=== PATIENT | female | born 1955 | race Caucasian/White ===

== ENCOUNTER 2022-06-14 06:54 | Emergency (ER) | payer OTHER, SELFPAY ==
[2022-06-14 07:08] VITALS: BP 138/90; PULSE 85; RESP 28; TEMP 36.6; O2SAT 94; BMI 37.1
[2022-06-14] MEDS: IPRAT-ALBUT 0.5-2.5 MG/3 ML NEB 1 NEB IH (07:25)
--- NOTE | 2022-06-14 07:45 | ED.GENADULT ---
HPI - General Adult General Date Seen: 06/14/22 <David Simmons MD - Last Filed: 06/14/22 08:05> Stated complaint: difficulty breathing <David Simmons MD - Last Filed: 06/14/22 08:05> Time Seen by Provider: 06/14/22 07:45 <David Simmons MD - Last Filed: 06/14/22 08:05> Source: patient <David Simmons MD - Last Filed: 06/14/22 08:05> Mode of arrival: ambulatory <David Simmons MD - Last Filed: 06/14/22 08:05> Limitations: no limitations <David Simmons MD - Last Filed: 06/14/22 08:05> History of Present Illness HPI narrative: Patient is a 67-year-old female who was in her usual state of health until three days ago when she spiked a fever to 103. She has had cough and chest congestion since that time. She was exposed to her grandchildren one week ago and some of them had upper respiratory symptoms. She has been vaccinated for flu and for COVID. She is a smoker who has a history of mild intermittent asthma. She has been using albuterol with limited benefit. No fevers now for the past day and a half. She is eating and drinking okay. She denies sore throat, nausea, vomiting. She is short of breath with activity. Her past medical history is significant for a CVA, GERD, hypertension, hyperlipidemia, psoriatic arthritis, rheumatoid arthritis, osteoarthritis. <David Simmons MD - Last Filed: 06/14/22 08:05> Related Data Home medications: Home Medications Medication Instructions Recorded Confirmed albuterol sulfate 90 mcg/actuation inhalation 06/14/22 aerosol inhaler celecoxib 100 mg capsule mg 06/14/22 fluticasone propionate 50 intranasal 06/14/22 mcg/actuation nasal spray,suspension omeprazole 40 mg capsule,delayed mg 06/14/22 release simvastatin 20 mg tablet mg 06/14/22 Previous Rx's Medication Instructions Recorded doxycycline monohydrate 100 mg 100 mg PO BID #20 caps 06/14/22 capsule prednisone 20 mg tablet 20 mg PO BID #14 tabs 06/14/22 <David Simmons MD - Last Filed: 06/14/22 08:05> Allergies/adverse reactions: Allergies Allergy/AdvReac Type Severity Reaction Status Date / Time No Known Drug Allergies Allergy Verified 06/14/22 07:07 <David Simmons MD - Last Filed: 06/14/22 08:05> Review of Systems Narrative: Patient has psoriatic arthritis, rheumatoid arthritis, osteoarthritis. Review of systems is outlined above otherwise noted to be negative. <David Simmons MD - Last Filed: 06/14/22 08:05> [facility] Medical History: Medical History (Updated 06/14/22 @ 09:29 by Rocio Antonio MD) COPD (chronic obstructive pulmonary disease) GERD (gastroesophageal reflux disease) History of CVA (cerebrovascular accident) Hyperlipidemia Hypertension Osteoarthritis Psoriatic arthritis Rheumatoid arthritis Tobacco abuse <David Simmons MD - Last Filed: 06/14/22 08:05> Exam Narrative: Exam Narrative: Vitals noted. Oxygen saturations 94%. No respiratory distress. HEENT: Conjunctiva clear. Tympanic membranes are pearly white bilaterally. Posterior pharynx is clear without erythema or exudate. Neck is supple without adenopathy, thyromegaly. Lungs: She has inspiratory and expiratory wheezes and a prolonged expiratory phase. No localizing rales or rhonchi. Heart: Regular rate and rhythm without murmur. Abdomen: Soft and nontender. No guarding, rigidity, rebound. Bowel sounds are normal. No palpable masses. Extremities: No cyanosis or edema. Good distal pulses. Skin: No abnormalities noted of the exposed skin. Neurologic: Awake, alert, fully oriented. Neurologic exam is nonfocal. <David Simmons MD - Last Filed: 06/14/22 08:05> Const: Vital Signs, click to edit/add: Vital Signs - 24 hr 06/14/22 07:08 Temperature 97.9 F Pulse Rate [Right Pulse Oximeter] 85 Respiratory Rate 28 H Blood Pressure [Ri ght Upper Arm] 138/90 H Pulse Oximetry 94 Oxygen Delivery Me thod Room Air <David Simmons MD - Last Filed: 06/14/22 08:05> Vital Signs, click to edit/add: Vital Signs - 24 hr 06/14/22 07:08 Temperature 97.9 F Pulse Rate [Right Pulse Oximeter] 85 Respiratory Rate 28 H Blood Pressure [Ri ght Upper Arm] 138/90 H Pulse Oximetry 94 Oxygen Delivery Me thod Room Air <Rocio Antonio MD - Last Filed: 06/14/22 09:30> Documenting provider has reviewed patient's vital signs: yes <David Simmons MD - Last Filed: 06/14/22 08:05> Course Course Hospital Course: Patient was seen and examined. Chest x-ray and a triple swab are ordered. She is given a DuoNeb with partial clearing of her wheezing. <David Simmons MD - Last Filed: 06/14/22 08:05> Reevaluation(s) Reevaluation #1: Reviewed patient's chest x-ray report with her. She states the pulmonary nodule is old and has been there. I have given her the copy of the chest x-ray report to take to her primary care provider to ensure that it does not need further CT imaging. She does have pneumonia. Will initiate oral antibiotics and prednisone. She is highly advised to quit smoking. She states she has not done so for 4 days, we discussed this might be opportunity to try to quit. She has inhalers at home. Do not see that she needs hospitalization at this point but we reviewed signs and symptoms for return. <Rocio Antonio MD - Last Filed: 06/14/22 09:30> Time: 09:27 <Rocio Antonio MD - Last Filed: 06/14/22 09:30> Vital Signs Vital signs: Initial Vital Signs Temperature 97.9 F 06/14/22 07:08 Temperature Source Temporal Artery Scan 06/14/22 07:08 Pulse Rate 85 06/14/22 07:08 Respiratory Rate 28 H 06/14/22 07:08 Blood Pressure 138/90 H 06/14/22 07:08 Blood Pressure Mean 106 06/14/22 07:08 Blood Pressure Position Sitting 06/14/22 07:08 Pulse Oximetry 94 06/14/22 07:08 Oxygen Delivery Method 06/14/22 07:08 Vital Signs Temperature 97.9 F 06/14/22 07:08 Pulse Rate 85 06/14/22 07:08 Respiratory Rate 28 H 06/14/22 07:08 Blood Pressure 138/90 H 06/14/22 07:08 Pulse Oximetry 94 06/14/22 07:08 Oxygen Delivery Method 06/14/22 07:08 Temperature 97.9 F 06/14/22 07:08 Pulse Rate 85 06/14/22 07:08 Respiratory Rate 28 H 06/14/22 07:08 Blood Pressure 138/90 H 06/14/22 07:08 Pulse Oximetry 94 06/14/22 07:08 Oxygen Delivery Method 06/14/22 07:08 <David Simmons MD - Last Filed: 06/14/22 08:05> Initial Vital Signs Temperature 97.9 F 06/14/22 07:08 Temperature Source Temporal Artery Scan 06/14/22 07:08 Pulse Rate 85 06/14/22 07:08 Respiratory Rate 28 H 06/14/22 07:08 Blood Pressure 138/90 H 06/14/22 07:08 Blood Pressure Mean 106 06/14/22 07:08 Blood Pressure Position Sitting 06/14/22 07:08 Pulse Oximetry 94 06/14/22 07:08 Oxygen Delivery Method 06/14/22 07:08 Vital Signs Temperature 97.9 F 06/14/22 07:08 Pulse Rate 85 06/14/22 07:08 Respiratory Rate 28 H 06/14/22 07:08 Blood Pressure 138/90 H 06/14/22 07:08 Pulse Oximetry 94 06/14/22 07:08 Oxygen Delivery Method 06/14/22 07:08 Temperature 97.9 F 06/14/22 07:08 Pulse Rate 85 06/14/22 07:08 Respiratory Rate 28 H 06/14/22 07:08 Blood Pressure 138/90 H 06/14/22 07:08 Pulse Oximetry 94 06/14/22 07:08 Oxygen Delivery Method 06/14/22 07:08 <Rocio Antonio MD - Last Filed: 06/14/22 09:30> Medical Decision Making Lab Data Lab results reviewed: Yes I reviewed the patient's lab results <Rocio Antonio MD - Last Filed: 06/14/22 09:30> Labs: Lab Results 06/14/22 Range/Units 07:17 SARS-CoV-2 (PCR) Negative SARS-CoV-2 (Negative) Influenza Type A (PCR) Negative PCR FLU A (Negative) Influenza Type B (PCR) Negative PCR FLU B (Negative) RSV (PCR) Negative PCR RSV (Negative) <David Simmons MD - Last Filed: 06/14/22 08:05> Lab Results 06/14/22 Range/Units 07:17 SARS-CoV-2 (PCR) Negative SARS-CoV-2 (Negative) Influenza Type A (PCR) Negative PCR FLU A (Negative) Influenza Type B (PCR) Negative PCR FLU B (Negative) RSV (PCR) Negative PCR RSV (Negative) <Rocio Antonio MD - Last Filed: 06/14/22 09:30> Imaging Data Chest x-ray: Attestation: I have reviewed the pertinent imaging results. <Rocio Antonio MD - Last Filed: 06/14/22 09:30> My impression: Can not see a pulmonary nodule on the right side. Await Radiology over-read on this chest x-ray. <Rocio Antonio MD - Last Filed: 06/14/22 09:30> Radiologist's impression: Patient: JESSICA SWEENEY Facility:?[facility] Patient ID:?[id number] Site Patient ID:?[id number]. Site :?1955 Study:?XRay Chest -06/14/2022 8:03:20 AM Ordering Physician:Evans Hernandez Final Report: INDICATION: sob TECHNIQUE: Chest 2 views. COMPARISON: None. FINDINGS: Cardiovascular and mediastinum: Heart size and vasculature are normal in caliber and appearance. Lungs and pleural spaces: Right mid-lower lung field pulmonary nodule measuring 1.3 cm. Subtle patchy airspace opacity at the right lung base concerning for pneumonia. No effusion or pneumothorax. Bones and soft tissues: No significant findings. IMPRESSION: Right mid-lower lung field pulmonary nodule measuring 1.[address] chest further evaluate. Subtle patchy airspace opacity at the right lung base concerning for pneumonia. Dictated by Ryland Rey MD @ 06/14/2022 9:06:55 AM (Electronic Signature) <Rocio Antonio MD - Last Filed: 06/14/22 09:30> Critical Care Time Critical Care Time Critical Care Time: No <Rocio Antonio MD - Last Filed: 06/14/22 09:30> Discharge Plan Discharge Clinical Impression: Community acquired pneumonia, COPD (chronic obstructive pulmonary disease) <David Simmons MD - Last Filed: 06/14/22 08:05> Condition: Stable <David Simmons MD - Last Filed: 06/14/22 08:05> Instructions: Community Acquired Pneumonia (ED), Chronic Lung Disease and Infection Prevention (ED) <David Simmons MD - Last Filed: 06/14/22 08:05> Additional Instructions: Start oral antibiotic and prednisone as prescribed. Use your inhalers as prescribed at home. Recommend follow-up with your primary care provider within the next week for recheck. Otherwise, if you are worsening at any point, having increased difficulty breathing or shortness of breath, developing worsening respiratory symptoms or worsening fever profile, do need to seek re-evaluation in the interim. Continue to work on smoking cessation. <David Simmons MD - Last Filed: 06/14/22 08:05> Activity Level: Activity as Tolerated <David Simmons MD - Last Filed: 06/14/22 08:05> Activity as Tolerated <Rocio Antonio MD - Last Filed: 06/14/22 09:30> Discharge Diet: Regular <David Simmons MD - Last Filed: 06/14/22 08:05> Regular <Rocio Antonio MD - Last Filed: 06/14/22 09:30> Prescriptions: New doxycycline monohydrate 100 mg capsule 100 mg PO BID Qty: 20 0RF prednisone 20 mg tablet 20 mg PO BID Qty: 14 0RF No Action omeprazole 40 mg capsule,delayed release(DR/EC) simvastatin 20 mg tablet albuterol sulfate 90 mcg/actuation HFA aerosol inhaler INHALATION celecoxib 100 mg capsule fluticasone propionate 50 mcg/actuation spray,suspension INTRANASAL <David Simmons MD - Last Filed: 06/14/22 08:05> Stand Alone Forms: [facility] <David Simmons MD - Last Filed: 06/14/22 08:05>
--- NOTE | 2022-06-14 07:46 | CRLHL7_ITS ---
For Patients: As a result of the Century Cures Act, medical imaging exams and procedure reports are released immediately into your electronic medical record. You may view this report before your referring provider. If you have questions, please contact your health care provider. INDICATION: sob TECHNIQUE: Chest 2 views. COMPARISON: None. FINDINGS: Cardiovascular and mediastinum: Heart size and vasculature are normal in caliber and appearance. Lungs and pleural spaces: Right mid-lower lung field pulmonary nodule measuring 1.3 cm. Subtle patchy airspace opacity at the right lung base concerning for pneumonia. No effusion or pneumothorax. Bones and soft tissues: No significant findings. IMPRESSION: Right mid-lower lung field pulmonary nodule measuring 1.[address] chest further evaluate. Subtle patchy airspace opacity at the right lung base concerning for pneumonia. Dictated by Ryland Rey MD @ 06/14/2022 9:06:55 AM (Electronically Signed)
[2022-06-14 08:07] LABS: PCR FLU A Negative PCR FLU A (Negative); PCR FLU B Negative PCR FLU B (Negative); PCR RSV Negative PCR RSV (Negative)
--- OUTSIDE RECORDS SUMMARY | 2022-06-14 08:08 | XMS_ITS | Encounter Summary ---
:1955 [facility] Address [address], [place] [address] Care Team Providers Name Role Phone Marta Hicks MD Primary Care Provider Unavailable Reason for Visit Reason Onset Date Comments Refill 06/27/2020 Encounter Details Date Type Department Care Team Description 06/27/2020 Refill [facility] Phil Spangler MD Refill [id number] [employer] [address] [place] [address] [place] [address] (Wo rk) Social History Tobacco Use Types Packs/Day Years Used Date Smoking Tobacco: Every Day Cigarettes 0.5 Smokeless Tobacco: Never Alcohol Use Standard Drinks/Week Comments Yes 0 (1 standard drink = 0.6 oz pure alcoho l) Sex Assigned at Date Recorded Not on file documented as of this encounter Nursing Notes Beti Shah RN - 06/28/2020 7:44 AM CST LV: 11/08/2019 FV: none Cbc and creatinine obtained on 10/15/2019 results within normal limits. (See Care everywhere [facility]) Renewed medication per medication refill protocol. Requested Prescriptions Signed Prescriptions Disp Refills ??? celecoxib (CELEBREX) 100 MG capsule 180 Capsule 1 Sig: Take 1 Capsule by mouth two times a day. Blood tests needed for any further refills Authorizing Provider: PHIL TATE Ordering User: BETI SHAH MACHINE TENDER documented in this encounter Plan of Treatment Upcoming Encounters Date Type Specialty Care Team Description 04/23/2023 Appointment Rheumatology Phil Tate M D [address] [address] (Wo rk) documented as of this encounter Visit Diagnoses Not on filedocumented in this encounter Care Teams Research Worker Kitchen Relationship Specialty Start Date End Date Marta Hicks MD PCP - General Family Practice 01/03/17 documented as of this encounter
--- OUTSIDE RECORDS SUMMARY | 2022-06-14 08:08 | XMS_ITS | Encounter Summary ---
:1955 [facility] Address [address] [address] Care Team Providers Name Role Phone Marta Hicks MD Primary Care Provider Unavailable Reason for Visit Reason Comments ERRONEOUS ENTRY Encounter Details Date Type Department Care Team Description 07/22/2019 Telephone [facility] [address] Herrmann PA-C ERRONEOUS ENTRY Rheumatology [address] [facility] [address] [place] [address] [place] [address] [phone] Social History Tobacco Use Types Packs/Day Years Used Date Smoking Tobacco: Every Day Cigarettes 0.5 Smokeless Tobacco: Never Alcohol Use Standard Drinks/Week Comments Not Asked 0 (1 standard drink = 0.6 oz pure alcoho l) Sex Assigned at Date Recorded Not on file documented as of this encounter Nursing Notes Carol Herrmann PA-C - 09/24/2019 10:05 AM CST A user error has taken place: encounter opened in error, closed for administrative reasons. WORKER documented in this encounter Plan of Treatment Upcoming Encounters Date Type Specialty Care Team Description 04/23/2023 Appointment Rheumatology Arun Tate M D [address] [facility] [address] [phone] (Wo rk) documented as of this encounter Results HBAG - Hepatitis B Surf Ag (07/22/2019 12:28 PM SORT WORKER) Patholo gist Method Time Signature Hepatitis B Negative Negative 07/22/[facility] (Non (Non 6:59 PM SORT WORKER CENTRAL [facility] Antigen Reactive) Reactive) Specimen Anatomical Collection Method / Collection Time Recei carolina Time (Source) Location / Volume Laterality Blood Venipuncture / 07/22/2019 12:28 9 Unknown PM SORT WORKER 12:28 PM SORT WORKER Carol Herrmann PA-C LAB_[address] [facility] Phon e Number [facility] [address] [address] HBCB - Hepatitis B Core Antibody Total (07/22/2019 12:28 PM SORT WORKER) [facility] Method Time Signature Hepatitis B Negative Negative 07/22/2019 [facility] Core (Non (Non 6:59 PM SORT WORKER CENTRAL LAB Antibody Reactive) Reactive) Specimen Anatomical Collection Method / Collection Time Recei carolina Time (Source) Location / Volume Laterality Blood Venipuncture / 07/22/2019 12:28 9 Unknown PM SORT WORKER 12:28 PM SORT WORKER Carol Herrmann PA-C LAB_[address] [facility] Phon e Number [facility] [address] [address] documented in this encounter Visit Diagnoses Diagnosis High risk medication use - Primary Encounter for long-term (current) use of other medications documented in this encounter Care Teams Mutual Funds Agent Relationship Specialty Start Date End Date Marta Hicks MD PCP - General Family Practice 01/03/17 documented as of this encounter
--- OUTSIDE RECORDS SUMMARY | 2022-06-14 08:08 | XMS_ITS | Encounter Summary ---
:1955 Author Organization [facility] Address [address] [address] Care Team Providers Name Role Phone Marta Hicks MD Primary Care Provider Unavailable Encounter Details Date Type Department Care Team Description 07/15/2019 Notes/Orders [place] [facility] Carol Lackey, PA-C [address] [place] [address] [place] [address] [phone] (Wo parth) Social History Tobacco Use Types Packs/Day Years Used Date Smoking Tobacco: Every Day Cigarettes 0.5 Smokeless Tobacco: Never Alcohol Use Standard Drinks/Week Comments Not Asked 0 (1 standard drink = 0.6 oz pure alcoho l) Sex Assigned at Date Recorded Not on file documented as of this encounter Plan of Treatment Upcoming Encounters Date Type Specialty Care Team Description 04/23/2023 Appointment Rheumatology Arun Tate M D [address] [facility] N [phone] (Wo rk) documented as of this encounter Visit Diagnoses Not on filedocumented in this encounter Care Teams Pinsetter Mechanic Helper Relationship Specialty Start Date End Date Marta Hicks MD PCP - General Family Practice 01/03/17 documented as of this encounter
--- OUTSIDE RECORDS SUMMARY | 2022-06-14 08:08 | XMS_ITS | Encounter Summary ---
:1955 Author Organization [facility] Address [address], [place] [address] Care Team Providers Name Role Phone Marta Hicks MD Primary Care Provider Unavailable Encounter Details Date Type Department Care Team Description 11/02/2020 Immunization [facility] Vaccine Encou nter for Program administration of vaccine [address] (Primary Dx) [place], [place] [id number] Social History Tobacco Use Types Packs/Day Years [...] 04/23/2023 Appointment Rheumatology Arun Tate M D [address] [address] (Wo rk) documented as of this encounter Visit Diagnoses Diagnosis Encounter for administration of vaccine - Primary documented in this encounter Care Teams Cartridge Gauger Relationship Specialty Start Date End Date Marta Hicks MD PCP - General Family Practice 01/03/17 documented as of this encounter
--- OUTSIDE RECORDS SUMMARY | 2022-06-14 08:08 | XMS_ITS | Encounter Summary ---
:1955 Author Organization [facility] Address [address] [place] [address] Care Team Providers Name Role Phone Marta Hicks MD Primary Care Provider Unavailable Encounter Details Date Type Department Care Team Description 07/22/2019 Lab Visit [facility] High risk medication use [address] [place] [address] Social History Tobacco Use Types Packs/Day Years [...] 04/23/2023 Appointment Rheumatology Arun Tate M D [address] [facility] [place] [address] (Wo rk) documented as of this encounter Procedures Procedure Name Priority Date/Time Associated Diagnosis Comme nts HBSAG (HEPATITIS B Routine 07/22/2019 12:28 PM High risk medic ation Results for this SURFACE AG) DOOR OPERATOR use procedure are i n the results section. HEPATITIS B CORE,AB Routine 07/22/2019 12:28 PM High risk medi cation Results for this DOOR OPERATOR use procedure are i n the results section. documented in this encounter Results HBAG - Hepatitis B Surf Ag (07/22/2019 12:28 PM DOOR OPERATOR) [facility] Method Time Signature Hepatitis B Negative Negative 07/22/2019 [facility] Surface (Non (Non 6:59 PM DOOR OPERATOR CENTRAL LAB Antigen Reactive) Reactive) Specimen Anatomical Collection Method / Collection Time Recei carolina Time (Source) Location / Volume Laterality Blood Venipuncture / 07/22/2019 12:28 9 Unknown PM DOOR OPERATOR 12:28 PM DOOR OPERATOR Carol Herrmann PA-C LAB_1 Performing Organization Address [facility] Phon e [facility] CENTRAL LAB [address] [address] HBCB - Hepatitis B Core Antibody Total (07/22/2019 12:28 PM DOOR OPERATOR) [facility] Method Time Signature Hepatitis B Negative Negative 07/22/2019 [employer] Core (Non (Non 6:59 PM DOOR OPERATOR CENTRAL LAB Antibody Reactive) Reactive) Specimen Anatomical Collection Method / Collection Time Recei carolina Time (Source) Location / Volume Laterality Blood Venipuncture / 07/22/2019 12:28 9 Unknown PM DOOR OPERATOR 12:28 PM DOOR OPERATOR Carol Herrmann PA-C LAB_1 Performing Organization Address [facility] Phon e Number [facility]AL [facility] [address] [address] documented in this encounter Visit Diagnoses Diagnosis High risk medication use Encounter for long-term (current) use of other medications documented in this encounter Care Teams Greens Planter Relationship Specialty Start Date End Date Marta Hicks MD PCP - General Family Practice 01/03/17 documented as of this encounter
--- OUTSIDE RECORDS SUMMARY | 2022-06-14 08:08 | XMS_ITS | Encounter Summary ---
:1955 [facility] Address [address], [place] [address] Care Team Providers Name Role Phone Marta Hicks MD Primary Care Provider Unavailable Reason for Visit Reason Comments Refill Encounter Details Date Type Department Care Team Description 01/27/2020 Refill [place] [facility] ogArun Cho MD Refill [address] [place] [address] [place] [address] [phone] (Wo parth) Social History Tobacco Use Types [...] Appointment Rheumatology Arun Tate M D [address] [facility] [address] [address] (Wo parth) documented as of this encounter Visit Diagnoses Not on filedocumented in this encounter Care Teams Online Editor Relationship Specialty Start Date End Date Marta Hicks MD PCP - General Family Practice 01/03/17 documented as of this encounter
--- OUTSIDE RECORDS SUMMARY | 2022-06-14 08:08 | XMS_ITS | Encounter Summary ---
:1955 Author [facility] Address [address] [address] Care Team Providers Name Role Phone Marta Hicks MD Primary Care Provider Unavailable Reason for Visit Reason Comments Medication Questions Encounter Details Date Type Department Care Team Description 08/05/2019 Telephone [facility] 3800 Arun Tate MD Medication Questions Rheumatology [address] [place] [facility] [place] [address] [id number] [phone] Social History Tobacco Use Types Packs/Day Years Used Date Smoking Tobacco: Every Day Cigarettes 0.5 Smokeless Tobacco: Never Alcohol Use Standard Drinks/Week Comments Not Asked 0 (1 standard drink = 0.6 oz pure alcoho l) Sex Assigned at Date Recorded Not on file documented as of this encounter Nursing Notes Fabi Feldman LPN - 08/05/2019 11:59 AM CST Pt called asking that we contact her pharmacy concerning her mtx refill order sent over on 07/23/19.The pharmacy had a warning about MTX and Celebrex not safe to take together. Tried to call pharmacy, spent 8 min on the phone. Faxed [facility] in [place] that the Warning override is in her chart stating the benefit outweighs risk. [phone] Pt karisoll call back if she cannot get her Rx filled today. UTER TECHNOLOGY TEACHER documented in this encounter Plan of Treatment Upcoming Encounters Date Type Specialty Care Team Description 04/23/2023 Appointment Rheumatology Arun Tate M D [address] [facility] [address] [address] (Wo rk) documented as of this encounter Visit Diagnoses Not on filedocumented in this encounter Care Teams Web Marketing Strategist Relationship Specialty Start Date End Date Marta Hicks MD PCP - General Family Practice 01/03/17 documented as of this encounter
--- OUTSIDE RECORDS SUMMARY | 2022-06-14 08:08 | XMS_ITS | Clinical Summary ---
:1955 Author Organization [facility] Address [address] [address] Care Team Providers Name Role Phone Marta Hicks MD Primary Care Provider Unavailable Source Comments You are receiving this document as you are listed as the primary care provider,follow-up provider, or the patient has been referred to you for consultation.This is in compliance with the Medicare and Medicaid EHR Incentive Program,which states Providers who transition their patient to another setting of careor provider of care or refers their patient to another provider of care shouldprovide summarycare record for each transition of care or referral. Tourjive Allergies Active Allergy Reactions Severity Noted Date Comments Methotrexate 11/08/2019 Increased migra wil Other Cough, Other, see 01/08/2011 Trees, dus t, horses, mold comments and grass: snee zing Medications Medication Sig Dispensed Refills Start Date End Date Status azelastine (ASTELIN) 2 sprays in each 0 05/13/2014 Active 0.1 % nasal solution nostril twice a day as needed fluticasone (FLONASE) 2 Sprays by 0 08/15/2016 Active 50 MCG/ACT nasal Nasal route. solution triamcinolone Apply topically. 0 08/15/2016 Active acetonide (KENALOG) 0.1 % cream Glucosamine-Chondroiti Daily 0 02/19/2017 Active n 750-600 MG acetaminophen (TYLENOL Take 2 Tablets 0 04/29/2022 Active ARTHRITIS) 650 MG (1,300 mg) by controlled release mouth two times tablet a day. diclofenac (VOLTAREN) Apply 2 g to 100 g 3 04/29/2022 Active 1 % gel skin 4 times daily as needed for Other (hand, knee, other joint pain). metoprolol succinate Take 25 mg by 0 03/25/2022 Active (TOPROL XL) 25 MG 24 mouth daily. hour release tablet simvastatin (ZOCOR) 20 Take 20 mg by 0 03/25/2022 Active MG tablet mouth. omeprazole (PRILOSEC) Take 1 Capsule 0 04/29/2022 Active 40 MG capsule (40 mg) by mouth two times a day. celecoxib (CELEBREX) Take 1 Capsule 180 Capsule 3 04/29/2022 Active 100 MG capsule (100 mg) by mouth two times a day. 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 12/15/2020 Migraine with aura and without status migrainosus, not intractable 11/08/2019 watermaster current use of non-steroidal anti-inflammato jm (NSAID) 03/26/2017 HLA B27 (HLA B27 positive) 03/26/2017 Psoriasis 03/26/2017 Primary osteoarthritis of right hip 02/19/2017 Primary osteoarthritis of both hands 02/19/2017 Multiple joint pain 02/19/2017 Primary osteoarthritis of right knee 02/19/2017 Total knee replacement status 02/19/2017 Gastroesophageal reflux disease 02/19/2017 Encounters Date Type Specialty Care Team Description 05/27/2022 Telephone Rheumatology Arun Tate MD Prior Auth orization For Medication (Kayla ecoxib 100mg cap PA renewal ) 04/29/2022 Office Visit Rheumatology Arun Tate MD Polyarticu lar osteoarthritis (Primary Dx); Erosive osteoar thritis of both hands; Pain in both juarez nds; custodial curre nt use of non-steroidal anti-inflammatories (NSAID) 04/24/2022 Lab Visit Laboratory watermaster curre nt use of non-steroidal anti-inflammato jm (NSAID) 04/16/2022 Refill Rheumatology Arun Tate MD Refill from Last 3 Months Immunizations Name Administration Dates Next Due Influenza IIV4 (Quadrivalent) 0.5mL 06/22/2019, 06/05/2017, 07/25/2016, (53765) 04/15/2014 Pfizer (Comirnaty) COVID-19, 12+ Yrs 11/23/2020, 11/02/2020 [facility] Social History Tobacco Use Types Packs/Day Years Used Date Smoking Tobacco: Every Day Cigarettes 0.5 Smokeless Tobacco: Never Alcohol Use Standard Drinks/Week Comments Yes 0 (1 standard drink = 0.6 oz pure alcoho l) Sex Assigned at Date Recorded Not on file Last Filed Vital Signs Vital Sign Reading Time Taken Comments Blood Pressure 152/75 09/03/2019 3:08 PM REINFORCED CONCRETE INSPECTOR Pulse 86 09/03/2019 3:08 PM REINFORCED CONCRETE INSPECTOR Temperature - - Respiratory Rate - - Oxygen Saturation - - Inhaled Oxygen Concentration - - Weight 100.7 kg (222 lb) 09/03/2019 3:08 PM REINFORCED CONCRETE INSPECTOR Height 164 cm (5' 4.57) 02/19/2017 10:16 AM CDT Body Mass Index 37.44 02/19/2017 10:16 AM CDT Plan of Treatment Upcoming Encounters Date Type Specialty Care Team Description 04/23/2023 Appointment Rheumatology Arun Tate M D [address] [place] [id number] (Wo rk) Health Maintenance Due Date Last Done Comments Cervical Cancer Screening 1955 Due Colon Cancer Screening Plan 1955 Due Hep C Screening (Preventive 1955 Services) Mammogram 1955 Pneumococcal 65+ Yrs (1 - 1963 PCV) Adult Preventive Visit 1975 Cholesterol 2002 Zoster/Shingles (1 of 2) 2007 COVID-19 Vaccine (3 - 01/18/2021 11/23/2020, 11/02/2020 Booster for Pfizer series) DTaP/Tdap/Td (2 - Tdap) 04/23/2021 04/23/2011 Influenza (#1) 2022 04/13/2021, 05/04/2020, 06/22/2019, Additional history exists Dexa 2022 HepA Aged Out 06/07/2004, 10/29/2001 No longer eligible based on patient 's age to complete this topic HepB Aged Out No longer eligib le based on patient 's age to complete this topic Hib Aged Out No longer eligib le based on patient 's age to complete this topic IPV (Polio) Aged Out No longer eligib le based on patient 's age to complete this topic MCV4 Aged Out No longer eligib le based on patient 's age to complete this topic Procedures Procedure Name Priority Date/Time Associated Comments Diagnosis COMPLETE BLOOD Routine 04/24/2022 11:23 custodial current Resu lts for this COUNT-W/DIFF AM CDT use of procedure are i n non-steroidal the results anti-inflammatories section. (NSAID) CREATININE / GFR Routine 04/24/2022 11:23 watermaster current Re sults for this AM CDT use of procedure are i n non-steroidal the results anti-inflammatories section. (NSAID) CBC AND DIFFERENTIAL Routine 04/24/2022 11:23 watermaster curren t Results for this PANEL AM CDT use of procedure are i n non-steroidal the results anti-inflammatories section. (NSAID) from Last 3 Months Results Creatinine / GFR (04/24/2022 11:23 AM CDT) Patholo gist Method Time Signature Creatinine 0.84 0.55 - 04/24/2022 [employer] 1.02 3:11 PM CDT [facility] mg/dL GFR, Estimated >60 >60 04/24/[address] [facility] mL/min/1. 3:11 PM CDT [facility] 73m2 Specimen Anatomical Collection Method / Collection Time Recei carolina Time (Source) Location / Volume Laterality Blood Venipuncture / 04/24/2022 11:23 2 Unknown AM CDT 11:23 AM CDT Arun Tate MD LAB_1 Performing Organization Address City/State/ZIP Code Phon e Number [email or web address] [address] [phone] Complete Blood Count-W/Diff (04/24/2022 11:23 AM CDT) P athologist Signature WBC 7.7 3.5 - 10.5 04/24/2022 [place] x10(9)/L 11:25 AM CDT LABORATORY ([place]) RBC 4.66 3.90 - 04/24/2022 [place] 5.03 11:25 AM CDT LAB[facility]ORY ([facility]) x10(12)/L Hemoglobin 14.6 12.0 - 04/24/2022 [place] 15.5 g/dL 11:25 AM CDT LAB[facility]ORY ([facility]) HCT 43.4 34.9 - 04/24/2022 [place] 44.5 % 11:25 AM CDT [facility] ([facility]) MCV 93.1 80.0 - 04/24/2022 [place] 100.0 fL 11:25 AM CDT [facility] ([facility]) MCH 31.3 27.6 - 04/24/2022 [place] 33.3 pg 11:25 AM CDT [facility] ([facility]) MCHC 33.6 31.5 - 04/24/2022 [place] 35.2 g/dL 11:25 AM CDT [facility] ([facility]) RDW 12.3 11.9 - 04/24/2022 [place] 15.5 % 11:25 AM CDT [facility] ([facility]) Platelets 210 150 - 450 04/24/2022 [place] x10(9)/L 11:25 AM CDT LAB[facility] ([facility]) Neutrophil 3.1 1.7 - 7.0 04/24/2022 [place] Absolute 10(9)/L 11:25 AM CDT LAB[facility] ([facility]) Lymphocyte 3.6 1.0 - 4.8 04/24/2022 [place] Absolute 10(9)/L 11:25 AM CDT LAB[facility] ([facility]) Monocytes 0.8 0.2 - 0.9 04/24/2022 [place] Absolute 10(9)/L 11:25 AM CDT [facility] ([facility]) Eosinophil 0.2 0.0 - 0.5 04/24/2022 [place] Absolute 10(9)/L 11:25 AM CDT [facility] ([facility]) Basophil 0.1 0.0 - 0.3 04/24/2022 [place] Absolute 10(9)/L 11:25 AM CDT LAB[facility] ([facility]) Immature Gran % 0.0 0.0 - 0.5 04/24/2022 [place] % 11:25 AM CDT LAB[facility] ([facility]) Specimen Anatomical Collection Method / Collection Time Recei carolina Time (Source) Location / Volume Laterality Blood Venipuncture / 04/24/2022 11:23 2 Unknown AM CDT 11:23 AM CDT Arun Tate MD LAB_1 Performing Organization Address City/State/ZIP Code Phon e Number [place] [facility] ([facility]) [address] [place] [address] from Last 3 Months Insurance Payer Benefit Plan / Subscriber ID Effective Phone Address T ype Group Dates [id number]Pre [phone] sent [phone] [place] [address] Care Teams Infrastructure Project Manager Relationship Specialty Start Date End Date Marta Hicks MD PCP - General Family Practice 01/03/17
--- OUTSIDE RECORDS SUMMARY | 2022-06-14 08:08 | XMS_ITS | Encounter Summary ---
:1955 [facility] Address [address], [place] [address] Care Team Providers Name Role Phone Marta Hicks MD Primary Care Provider Unavailable Reason for Visit Reason Comments Prior Authorization For Medication Celecoxib 100mg cap PA renewal Encounter Details Date Type Department Care Team Description 05/27/2022 Telephone [facility] [address] Arun Tate MD Prior Authorization For Rheumatology [address] Medication (Celecoxib [address] 100mg cap PA renewal ) [place] [address] [phone] Social History Tobacco Use Types Packs/Day Years Used Date Smoking Tobacco: Every Day Cigarettes 0.5 Smokeless Tobacco: Never Alcohol Use Standard Drinks/Week Comments Yes 0 (1 standard drink = 0.6 oz pure alcoho l) Sex Assigned at Date Recorded Not on file documented as of this encounter Nursing Notes Lizbeth Snider - 05/27/2022 12:03 PM CDT Images from the original note were not included. Celecoxib PA renewal approved. No refill needed. Last refill 04/29/22 for 1 year. documented in this encounter Plan of Treatment Upcoming Encounters Date Type Specialty Care Team Description 04/23/2023 Appointment Rheumatology Arun Tate M D [address] [facility] [place] [id number] (Wo rk) documented as of this encounter Visit Diagnoses Not on filedocumented in this encounter Care Teams Bag Shop Worker Relationship Specialty Start Date End Date Marta Hicks MD PCP - General Family Practice 01/03/17 documented as of this encounter
--- OUTSIDE RECORDS SUMMARY | 2022-06-14 08:08 | XMS_ITS | Encounter Summary ---
:1955 Author [facility] Address [address], [place] [address] Care Team Providers Name Role Phone Marta Hicks MD Primary Care Provider Unavailable Reason for Visit Reason Onset Date Comments Refill 01/04/2021 Encounter Details Date Type Department Care Team Description 01/04/2021 Refill [facility] [address] Syl[address] Herrmann PA-C Refill Rheumatology [address] [place] [address] [place], [place] [id number] [phone] Social History Tobacco Use Types Packs/Day Years Used Date Smoking Tobacco: Every Day Cigarettes 0.5 Smokeless Tobacco: Never Alcohol Use Standard Drinks/Week Comments Yes 0 (1 standard drink = 0.6 oz pure alcoho l) Sex Assigned at Date Recorded Not on file documented as of this encounter Nursing Notes Fabi Feldman LPN - 01/04/2021 3:42 PM CDT Pt would like another script sent to [facility]. Order teed up. Please check, sign and send if appropriate. Carol Herrmann PA-C - 01/04/2021 3:32 PM CDT Labs are now updated, Celebrex refilled. Please let patient know. Please clarify with the patient if she is also wanting me to send a longer term prescription to [facility]? If not, can close encounter. Thank you. Tatiana Brennan LPN - 01/04/2021 2:40 PM CDT Patient thought you were going to refill her celebrex last month. She uses [facility] but wants it to go to [facility] for this refill because she is out. documented in this encounter Plan of Treatment Upcoming Encounters Date Type Specialty Care Team Description 04/23/2023 Appointment Rheumatology Arun Tate M D [address] [phone] (Wo rk) documented as of this encounter Visit Diagnoses Not on filedocumented in this encounter Care Teams Legal Entity Controller Relationship Specialty Start Date End Date Marta Hicks MD PCP - General Family Practice 01/03/17 documented as of this encounter
--- OUTSIDE RECORDS SUMMARY | 2022-06-14 08:08 | XMS_ITS | Encounter Summary ---
:1955 Author Organization [employer] Address [address], [place] [address] Care Team Providers Name Role Phone Marta Hicks MD Primary Care Provider Unavailable Reason for Visit Reason Comments Follow-up Encounter Details Date Type Department Care Team Description 07/14/2019 Office Visit Carol Mays, Bilateral hand pain (Primary Dx); Rheumatology JUAN MANUEL Polyarticular osteoarthritis; [id number] [place] Status post t otal left knee replacement; [address] Erosive osteoarthritis of both hands; [place], [place] Multiple joint pain; [id number] Psoriasis; [phone] Gastroesophagea l reflux disease without esophagitis; (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) Social History Tobacco Use Types Packs/Day Years Used Date Smoking Tobacco: Every Day Cigarettes 0.5 Smokeless Tobacco: Never Alcohol Use Standard Drinks/Week Comments Not Asked 0 (1 standard drink = 0.6 oz pure alcoho l) Sex Assigned at Date Recorded Not on file documented as of this encounter Last Filed Vital Signs Vital Sign Reading Time Taken Comments Blood Pressure 152/77 07/14/2019 4:17 PM [employer] Pulse 81 07/14/2019 4:17 PM [employer] Temperature - - Respiratory Rate - - Oxygen Saturation - - Inhaled Oxygen Concentration - - Weight 99.3 kg (219 lb) 07/14/2019 4:17 PM [employer] Height - - Body Mass Index 36.93 02/19/2017 10:16 AM CDT documented in this encounter Progress Notes Carol Herrmann, JUAN MANUEL - 07/14/2019 4:15 PM CST Rheumatology Clinic Note Encounter Date: 06/30/2019 Subjective Chief complaint: Follow up polyarticular osteoarthritis, history of positive HLA-B27, psoriasis History of present illness: Marie Bernal returns today for follow up of polyarticular osteoarthritis, history of positive HLA-B27, psoriasis , last seen by Dr. Tate in 03/2017. She was initially evaluated by Dr. Tate in February 2017. She has known polyarticular osteoarthritis including hands, hips, knees status post left knee replacement, and feet/ She has advanced osteoarthritis in the right hip and right knee and may eventually need those replaced, [facility] She has a history of psoriasis. In the past had some soreness of the right 2nd and 3rd MCP joints with mild swelling, there was a concern that she may have psoriatic arthritis, clinically the swelling was very subtle at best. Blood work at that time showed normal CBC, normal creatinine, normal sed rate 8, undetectable CRP, slight elevation in serum calcium at 10.3, normal iron studies, negative rheumatoid factor and CCP butshe did have a positive HLA-B27. Right hand x-ray showed definite osteoarthritic changes at the DIP joints, IP joint of the right thumb, there was also some slight narrowing of the 2nd and 3rd MCP joints without erosion or proliferative change, there were also marginal osteophytes at multiple PIP joints, the general picture was consistent with osteoarthritis. She has a positive HLA-B27, history of psoriasis, but at that time was not felt to definitely have psoriatic arthritis. She was given some meloxicam 15 mg daily. She thought that this was helpful in terms of discomfort in her hands, less puffiness in her hands. She underwent a lumbar (L3-5) surgery with Dr. Salazar at [facility] for spinal stenosis about a year ago. She follows with [facility] for her hip and knee osteoarthritis. Interval History Reviewed: She returns today for follow up after 2 years. She says I hurt everywhere. For the past 1 year, has had more noticeable polyarticular joint pain in hands, wrists, elbows, shoulders hips, knees, ankles and feet. She just aches and feels swollen everywhere. For the past 1 month has felt achy and warm to the touch, has had a mid-afternoon fever- indicates that she feels hot and feverish but has not actually taken her temperature. When she rests she feels better. This only lasts for a couple of hours. It does not happen everyday but happens more days than not. When she feels feverish her musculoskeletal pain is worse. She did try meloxicam in the past, worked well for a month or so but then seemedto lose effectiveness. She has been taking ibuprofen 800 mg 1-2 times daily with minimal benefit. Psoriasis is minimal, has a patch on her buttocks, under the breast and on the upper leg. She uses topical steroid cream with benefit. She has some mild paresthesias in both feet, possibly related to diabetes. She has a generally she always feels hot but has felt cold all the time recently. Has some mild hair thinning. Denies any significant weight gain. She doesn't sleep well at night. She is not exercising. Reflux has been stable on omeprazole. Denies shortness of breath, cough, chest pains. No inflammatory eye or bowel symptoms. No inflammatory back pain. No problems with bowels or bladder. Blood work from June 22 through ina reviewed today, normal CBC, creatinine 0.85/GFR >60, ALT 25, AST 24, and calcium 9.7. Negative Hepatitis C antibody. Review of systems: Comprehensive review of systems form filled out by the patient for today's visit was reviewed, sent to [facility] and is as noted above and/or notable for: feeling feverish, easy bruising,swollen glands, numbness, weakness, headaches, upset stomach, heartburn, and problems sleeping. 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 Medications: Updated in EMR but notable for: To be started on Celebrex 100 mg b.i.d., tylenol arthritis p.r.n. Patient Active Problem List Diagnosis Date Noted ??? FDC current use of non-steroidal anti-inflammatories (NSAID) 03/26/2017 ??? HLA B27 (HLA B27 positive) 03/26/2017 ??? Psoriasis 03/26/2017 ??? Primary osteoarthritis of right hip 02/19/2017 ??? Primary osteoarthritis of both hands 02/19/2017 ??? Multiple joint pain 02/19/2017 ??? Primary osteoarthritis of right knee 02/19/2017 ??? Total knee replacement status 02/19/2017 ??? Gastroesophageal reflux disease 02/19/2017 Allergies Allergen Reactions ??? Other Cough and Other, see comments Trees, dust, horses, mold and grass: sneezing Objective EXAM Vitals: Per flow sheet. General: Well-developed, well-nourished. Comfortable appearing. Alert and cooperative. Eyes: Externally Clear. Lymph: No cervical or submandibular lymphadenopathy Chest: CTA. No wheezing. Skin: Warm and dry. No visible psoriasis or rashes. No Raynaud changes. No open wound ulcers. No nailfold capillary changes. Neuro: Normal gait. Normal muscle bulk and tone. Sensation intact in bilateral extremities. No focaldeficits. MSK: All 4 extremities were examined today. There is no significant active synovitis/joint effusion/inflammatory arthritis in any joints of the upper or lower extremities. The marked osteoarthritic changes in the hands, tenderness scattered throughout the PIP and DIP joints but no overt synovitis. Both wrists are sore with normal range of motion. Elbows move normally. Right greater than left shoulderhas reduced range of motion more internally then externally. Right hip has moderately reduced internal and external rotation. Left knee has been replaced. There is tenderness along the medial right knee joint line, no appreciable warmth/inflammatory arthritis/effusion. Mild tenderness of bilateral ankles and generalized puffiness but no significant synovitis or effusion. Tenderness throughout the MTPjoints without synovitis. Multiple myofacial tender points on exam today. Assessment: 1. Polyarticular osteoarthritis hands, hips, and knees; status post left knee replacement 2. Multiple joint pain; myofascial pain 3. Positive HLA-B27, history of psoriasis, without a definite diagnosis of psoriatic arthritis 4. Mid-afternoon fever sensation 5. Cold intolerance 6. Chronic degenerative low back pain and spinal stenosis s/p lumbar spine surgery 7. GERD 8. Long-term daily NSAID use RAPID 3 score = if completed by patient will be scanned into the sdoc. Plan: 1. Long discussion with Marie today. She does have a history of a positive HLA- B27 and psoriasis butno confirmed definate diagnosis of psoriatic arthritis. Psoriasis is minimal, no inflammatory eye/bowel/back symptoms. She has mixed inflammatory and noninflammatory joint features on history and exam and it is difficult to know if the road driver of her joint pain is inflammatory versus noninflammatory. She has all day joint stiffness. She without a doubt has polyarticular osteoarthritis, especially in the hands, right hip, and right knee that is likely playing a major role. I am not sure what to make of the intermittent mid afternoon feverish feeling, this will only last for a couple of hours, but herjoint pain is worse during this time. I have recommended that she document her temperatures when this occurs. This is not associated with a new rash. She does not appear to have a systemic illness or infection curently. Recent white blood cell count was normal. Kidney and liver function tests have been normal. I think additional evaluation is clinically indicated at this time. 2. We will update bilateral hand x-rays today looking for signs of chronic inflammation and erosions. We will check a sedimentation rate and CRP to look for signs of systemic inflammation. We will check a TSH to evaluate her generalized musculoskeletal pain, cold intolerance, feverish feeling. 3. We are also going to set her up for a right hand MRI w/wo contrast to look for signs of inflammation and synovitis superimposed on her underlying osteoarthritis. If the inflammatory markers are elevated and we see signs of chronic inflammation/erosions on the x-rays we may consider cancelling the MRI. 4. We will obtain a right shoulder x-ray today. 5. Since she found meloxicam to be ineffective after about a month or so we are going to try Celebrex 100 mg b.i.d. She will take this with food and avoid additional anti-inflammatories with this. She can take Tylenol (actaminophen) as needed up to 4000 mg/day. Can use topical analgesics. Recommend I-GHULAM arthritis gloves. 6. We will have her follow up in 2-3 weeks to review lab and imaging results, evaluate her response to the Celebrex, and discuss next steps. She will keep her appointment with Dr. Tate in August 2019,we will discuss if keeping this appointment is necessary or if we should push this back at our next appointment. Plan discussed with the patient in detail, verbalized understanding and agreement with this approach, all questions answered. Carol Herrmann PA-C [employer] Carol Herrmann PA-C - 07/14/2019 4:15 PM CST Rheumatology Clinic Note Encounter Date: 07/14/2019 Subjective Chief complaint: Follow up bilateral hand pain, polyarticular osteoarthritis, history of positive HLA-B27, psoriasis History of present illness: Marie Bernal returns today for follow up of bilateral hand pain, polyarticular osteoarthritis, history of positive HLA-B27, psoriasis, last seen in 06/2019; last seen by Dr. Tate in 03/2017. She was initially evaluated by Dr. Tate in February 2017. She has known polyarticular osteoarthritis including hands, hips, knees-status post left knee replacement, and feet. She has advanced osteoarthritis in the right hip and right knee and may eventually need those replaced, [facility]. She has a history of psoriasis. In the past had some soreness of the right 2nd and 3rd MCP joints with mild swelling, there was a concern that she may have psoriatic arthritis but clinically the swelling was very subtle at best. Blood work at that time showed normal CBC, normal creatinine, normal sed rate 8, undetectable CRP, slight elevation in serum calcium at 10.3, normal iron studies, negative rheumatoid factor and CCP butshe did have a positive HLA-B27. Right hand x-ray showed definite osteoarthritic changes at the DIP joints, IP joint of the right thumb, there was also some slight narrowing of the 2nd and 3rd MCP joints without erosion or proliferative change, there were also marginal osteophytes at multiple PIP joints, the general picture was consistent with osteoarthritis. She has a positive HLA-B27, history of psoriasis, but at that time was not felt to definitely have psoriatic arthritis. She was given some meloxicam 15 mg daily. She thought that this was helpful in terms of discomfort in her hands, less puffiness in her hands. She underwent a lumbar (L3-5) surgery with Dr. Salazar at [facility] for spinal stenosis about a year ago. She follows with [facility] for her hip and knee osteoarthritis. Blood work from June 22 through ina reviewed today, normal CBC, creatinine 0.85/GFR >60, ALT 25, AST 24, and calcium 9.7. Negative Hepatitis C antibody. Please see my last clinic note from June 30, 2019 for a full updated history. Interval History Reviewed: This is a 2 week follow up for her. She returns today to review recent blood work, bilateral hand x-ray, and right hand MRI results and to discuss recommendations. Blood work from June 30 showed a normal ESR 12, undetectable CRP <0.5, and normal TSH 1.78 Bilateral hand x-rays demonstrated scattered degenerative changes through the IP joints, significanthypertrophic changes at the index finger DIP joint and IP joint of the thumb, significant narrowing of the 1-3 metacarpal phalangeal joints and in the triscaphe joint, no obvious erosive changes. Left hand x-ray demonstrate findings similar to those on the right, significant hypertrophic changesat the DIP joint of the 2-4 fingers, thumb IP joint, and first CMC joint and triscaphe but again no obvious erosive change. Right hand MR demonstrated findings suspicious for inflammatory arthropathy with multi-joint synovitis and scattered foci of probable enhancing osseous erosions throughout the hand and wrist but also osteoarthritic degenerative changes through the hand and wrist including gull-wing morphology of multiple interphalangeal joints, suspicious for erosive osteoarthritis. Right shoulder x-ray demonstrated narrowing of the glenohumeral joint with significant spurring fromthe inferomedial aspect of the humeral head and glenoid rim and degenerative change also noted at the acromioclavicular joint. Summary of my clinic note from 06/30/2019, She has ongoing polyarticular joint pain in the hands, wrists, elbows, shoulders hips, knees, ankles and feet. She just aches and feels swollen everywhere. For the past 1 month has felt achy and warm to the touch, has had a mid-afternoon fever- indicates that she feels hot and feverish but has not actually taken her temperature. When she rests she feels better. This only lasts for a couple of hours. It does not happen everyday but happens more days than not. When she feels feverish her musculoskeletal pain is worse. She did try meloxicam in the past, worked well for a month or so but then seemed to lose effectiveness. She has been taking ibuprofen 800 mg 1-2 times daily with minimal benefit. Psoriasis is minimal, has a patch on her buttocks, under thebreast and on the upper leg. She uses topical steroid cream with benefit. She has some mild paresthesias in both feet, possibly related to diabetes. She has a generally she always feels hot but has felt cold all the time recently. Has some mild hair thinning. Denies any significant weight gain. She doesn't sleep well at night. She is not exercising. Reflux has been stable on omeprazole. Denies shortness of breath, cough, chest pains. No inflammatory eye or bowel symptoms. No inflammatory back pain. No problems with bowels or bladder. She has plans to follow up with Dr. [facility] Aleman at [facility] regarding her right hip and right knee osteoarthritis. Review of systems: Comprehensive review of systems form filled out by the patient for today's visit was reviewed, sent to SD and is as noted above and/or notable for: feeling feverish, easy bruising,swollen glands, numbness, weakness, headaches, upset stomach, heartburn, and problems sleeping. 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 Medications: Updated in EMR but notable for: To be started on Celebrex 100 mg b.i.d., tylenol arthritis p.r.n. Patient Active Problem List Diagnosis Date Noted ??? 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 HLA B27 (HLA B27 positive) 03/26/2017 ??? Psoriasis 03/26/2017 ??? Primary osteoarthritis of right hip 02/19/2017 ??? Primary osteoarthritis of both hands 02/19/2017 ??? Multiple joint pain 02/19/2017 ??? Primary osteoarthritis of right knee 02/19/2017 ??? Total knee replacement status 02/19/2017 ??? Gastroesophageal reflux disease 02/19/2017 Allergies Allergen Reactions ??? Other Cough and Other, see comments Trees, dust, horses, mold and grass: sneezing Objective EXAM Vitals: Per flow sheet. General: NAD. Eyes: Externally Clear. Lymph: No cervical or submandibular lymphadenopathy. Chest: CTA. No wheezing. Skin: Warm and dry. No visible psoriasis or rashes. No Raynaud changes. No open wound ulcers. No nailfold capillary changes. No fingernail changes. Neuro: No focal deficits. MSK: All 4 extremities were examined today. There is no significant active synovitis/dactylitis/joint effusion/inflammatory arthritis in any joints of the upper or lower extremities. The marked osteoarthritic changes in the hands with bony hypertrophy, tenderness scattered throughout the PIP and DIP joints, but no overt swelling or synovitis. Both wrists are sore with normal range of motion. Elbows move normally. Right greater than left shoulder has reduced range of motion more internally then externally. Right hip has moderately reduced internal and external rotation. Left knee has been replaced. There is tenderness along the medial right knee joint line, no appreciable warmth/inflammatory arthritis/effusion. Mild tenderness of bilateral ankles and generalized puffiness but no significant warmth, synovitis or effusion. Tenderness throughout the MTP joints without synovitis. Multiple myofacial tender points on exam today. Assessment: 1. Bilateral hand pain, stiffness, and swelling suggestive of osteoarthritis with a component of erosive inflammatory osteoarthritis but no definitive psoriatic arthritis (with positive HLA-B27 and psoriasis) 2. Polyarticular osteoarthritis hands, hips, and knees; status post left knee replacement; componentof erosive inflammatory arthritis bilateral hands and wrists 3. Multiple joint pain; myofascial pain 4. Positive HLA-B27, history of psoriasis 5. ?Mid-afternoon fever sensation 6. Cold intolerance, normal TSH 7. Chronic degenerative low back pain and spinal stenosis s/p lumbar spine surgery 8. GERD 9. Long-term daily NSAID use RAPID 3 score = if completed by patient will be scanned into the sdoc. Plan: 1. Long discussion with Marie. Complex situation. She has a positive HLA-B27 and psoriasis but nodefinitive diagnosis of psoriatic arthritis. Psoriasis remains minimal and controlled with topical medications. No history of inflammatory eye (iritis/uveitis), bowel or back symptoms. 2. We spoke about her joint symptoms. Clinically she has a mixed inflammatory and noninflammatory picture. She without a doubt has polyarticular osteoarthritis in the hands, right hip, and right knee, status post left knee replacement. Bilateral hand x-rays and right hand MRI also show some features of erosive inflammatory osteoarthritis. Difficult to know if she has an inflammatory arthritis (psoriatic arthritis given history of psoriasis and positive HLA-B27) superimposed on the erosive inflammatory OA and osteoarthritis but there is no overt synovitis on exam (there is marked bony changes), no ev idence of psoriatic arthritis on x-ray or MRI, and normal inflammatory markers would make this less likely. The normal inflammatory markers would argue for any significant systemic inflammation occurring currently. I would like to consult with Dr. Tate prior to consider additional medication options and I will be in touch with her. 3. I am still not sure what to make of the intermittent mid afternoon feverish feeling, this will only last for a couple of hours, but her joint pain is worse during this time. I have recommended that she document her temperatures when this occurs. This is not associated with a rash. Recent white blood cell count was normal. Kidney and liver function tests have been normal.. 4. Reviewed that the right shoulder x-ray showed glenohumeral osteoarthritis with significant spurring from the inferomedial humeral head and glenoid rim accounting for her right shoulder pain and reduced range of motion. Discussed options, could consider a cortisone injection as needed. 5. Continue Celebrex 100 mg b.i.d. with food, avoid additional anti- inflammatories with this. Can take Tylenol (actaminophen) as needed up to 4000 mg/day. Can use topical analgesics. Recommend I-GHULAM arthritis gloves. 6. Follow up with Dr. Tate in August 2019 as scheduled for now, earlier if problems arise. I will be in touch with her with additional recommendations. Plan discussed with the patient in detail, verbalized understanding and agreement with this approach, all questions answered. Carol Herrmann PA-C [employer] documented in this encounter Plan of Treatment Upcoming Encounters Date Type Specialty Care Team Description 04/23/2023 Appointment Rheumatology Arun Tate M D [address] [facility] [place] [place] [address] [id number] (Wo rk) documented as of this encounter Visit Diagnoses Diagnosis Bilateral hand pain - Primary Pain in limb Polyarticular osteoarthritis Generalized osteoarthrosis, unspecified site Status post total left knee replacement Erosive osteoarthritis of both hands Multiple joint pain Pain in joint, multiple sites Psoriasis Other psoriasis Gastroesophageal reflux disease without esophagitis Esophageal reflux FDC current use of non-steroidal a nti-inflammatories (NSAID) Encounter for long-term (current) use of non-steroidal anti-inflammatories documented in this encounter Care Teams Wedding Designer Relationship Specialty Start Date End Date Marta Hicks MD PCP - General Family Practice 01/03/17 documented as of this encounter
--- OUTSIDE RECORDS SUMMARY | 2022-06-14 08:08 | XMS_ITS | Encounter Summary ---
:1955 Author Organization [facility] Address [address] [place] [address] Care Team Providers Name Role Phone Marta Hicks MD Primary Care Provider Unavailable Encounter Details Date Type Department Care Team Description 07/23/2019 Notes/Orders [facility] [address] Herrmann PA-C Rheumatology [address] [place] [address] [place], [place] [id number] [phone] Social History Tobacco Use Types Packs/Day Years [...] Appointment Rheumatology Arun Tate M D [address] [facility] [facility] [address] [id number] (Wo rk) documented as of this encounter Visit Diagnoses Not on filedocumented in this encounter Care Teams Electrician Wiring Relationship Specialty Start Date End Date Marta Hicks MD PCP - General Family Practice 01/03/17 documented as of this encounter
--- OUTSIDE RECORDS SUMMARY | 2022-06-14 08:08 | XMS_ITS | Clinical Summary ---
:1955 Author Organization [facility] [facility] [place] [address] Care Team Providers Name Role Phone Rajan Turcios MD Unavailable Grey Freeman Unavailable [phone] Arun Tate Unavailable Mendez Aleman MD Unavailable Rashaad Talavera Primary Care Provider Allergies Active Allergy Reactions Severity Noted Date Comments Methotrexate Headache 11/08/2019 Increased migra wil, Stroke like sym ptoms Unlisted Allergen Cough, Other - 01/08/2011 Trees, d ust, horses, (Include Detail In Describe In Comment mo ld and grass: Comments) Field sneezing Trees,grass cau ses sneezing and co ugh Medications Medication Sig Dispensed Refills Start End Status Date Date celecoxib (CELEBREX) Take 100 mg by 0 Active 100 mg capsule mouth. 9 medication order Take 40 mg by 90 Tab 3 Active composerIndications: mouth before 0 Chronic GERD dinner. Prilosec - Sandoz only name brand fluticasone (50 mcg Inhale 2 Sprays 48 g 1 Active per actuation) nasal to both 2 solution nostrils once (FLONASE)Indications daily. USE 2 : Seasonal allergic SPRAYS IN EACH rhinitis due to NOSTRIL TWICE A pollen DAY metoprolol succinate Take 1 Tablet 90 Tablet 3 Active (TOPROL XL) 25 mg (25 mg) by 2 Sustained-Release mouth once tabletIndications: daily. Essential hypertension omeprazole Take 1 Capsule 90 Capsule 3 Act silvestre (PRILOSEC) 40 mg (40 mg) by 2 Delayed-Release mouth once capsuleIndications: daily. Gastroesophageal reflux disease with esophagitis, unspecified whether hemorrhage simvastatin (ZOCOR) Take 1 Tablet 90 Tablet 3 Active 20 mg (20 mg) by 2 tabletIndications: mouth at Mixed hyperlipidemia bedtime. albuterol HFA Inhale 1-2 18 g 0 Activ e (PRO-AIR; VENTOLIN; Puffs by mouth 2 PROVENTIL) 90 every 6 hours mcg/actuation if needed for inhalerIndications: Shortness Of Viral bronchitis Breath. albuterol HFA USE 1 TO 2 18 g 0 Disco ntinued (PRO-AIR; VENTOLIN; INHALATIONS 1 022 (Reorder PROVENTIL) 90 EVERY 4 HOURS (E -cancel not mcg/actuation IF NEEDED sent)) inhalerIndications: Viral bronchitis Active Problems Problem Noted Date Smoker 03/25/2022 Prediabetes 04/14/2021 Overview: HgbA1c 5.8% 2016 RBBB 02/15/2018 Overview: February 2018: new on preop EKG. Colitis 09/09/2016 Overview: [facility] did colonoscopies, olonoscopy time s 2 found 4 red and irritated areas, February 2016 had recurrence with blood, no recurrence since February 2016 Primary osteoarthritis of right knee 08/17/2016 Overview: Bilateral knee cortisone injection November 2013. Bilateral synvisc one Apr 2014. Aug 2016: 2nd synvisc ONE injection. Hip arthritis 02/23/2012 Overview: February 2012: MR shows Osteoarthritis of ri ght hip with gluteal tendonopathy also. February 2012: right hip interarticular henrik isone injection under fluoroscopic guidance, significant improvement post injection and therapy. Aug 2012: right hip interarticular corti sone injection under fluoroscopic guidance, significant improvement post injection and therapy. January 2015: Right hip interarticular henrik isone injection under Fluoroscopic guidance. Obesity, unspecified 01/13/2012 Osteoarthritis 01/04/2011 Overview: Bilateral knee osteoarthritis. Aug 2012: left knee cortisone injection. November 2013: bilateral cortisone injectio ns to knees by Dr. Solitario: only 3 months of relief. Apr 2014: Bilateral Synvisc One knee in jections; only mild improvement. May 2014: left knee total knee replaceme nt. Psoriatic arthritis 01/04/2011 Overview: February 2017: Saw [employer] Dr. Tate, he favored osteoarthritis, but did labs to check for inflammatory arthritis. Deviated nasal septum 08/21/2010 Hypertrophy of nasal turbinates 08/21/2010 Chronic rhinitis 08/21/2010 Recurrent sinus infections 08/21/2010 HYPERLIPIDEMIA 08/31/2001 Overview: Tried Atorvastatin (Lipitor) 2013, and m yalgia legs. ~ Sep 2016: Cholesterol: ASCVD Risk Honey osullivan: 7.9 % 10 Year risk after info entered, WOULD BE HALF THIS if she stopped smoking, then statin would not be indicated. Discussed statin in great detail. She will try to quit smoking and follow up to start statin if can't quit. ESOPHAGITIS, REFLUX 05/05/2001 Overview: needs EGD ALLERGIES 04/10/2000 Migraine equivalent Resolved Problems Problem Noted Date Resolved Date Type 2 diabetes mellitus without complication, without 04/1703/25/2022 long-term current use of insulin (HC) - never on medication & 03/25 A1C 6.1 TOBACCO USE 08/31/2001 05/13/2014 Encounters Date Type Specialty Care Team Description 06/03/2022 Refill Rashaad Talavera, Refill R equest PA (Albuterol/) 05/09/2022 Hospital Encounter Rashaad Talavera, En counter for screening PA mammogram for b reast cancer 05/09/2022 Travel 04/08/2022 Telephone Rashaad Talavera, Follow U p (Colonoscopy) PA 03/25/2022 Office Visit Beti Johnson Derm Problem (skin Nelson, PA check) 03/25/2022 Office Visit Rashaad Talavera, Physical (Due for eye PA exam, refills); Derm Problem (Spots on leg) 03/25/2022 Refill Rashaad Talavera, Refill Tara HATCH (Omeprazole/) 03/25/2022 Travel 03/22/2022 Orders Only Lab[facility] 03/22/2022 Travel 03/19/2022 Refill Danyell Alonso, Corinne burr MD (Omeprazole/) 03/18/2022 Refill Freddie Solitario, Refill Rell STEIN (Simvastatin) from Last 3 Months Immunizations Name Administration Dates Next Due COVID-19 vaccine ([employer] 07/09/2021 30mcg/0.3mL) HALIMA DELGADO Hepatitis A (Adult) 06/07/2004, 10/29/2001 Hepatitis B (Adult) 06/07/2004 Hepatitis B (Peds) 08/02/2004, 06/07/2004, 10/29/2001 Influenza, IIV3 (Age >=3 years) 08/14/2012, 04/23/2011, 05/05, 07/18/2009, 08/16/2004 Influenza, IIV4 04/13/2021, 05/04/2020, 06/22/2019, 06/05/2017, 07/25/2016, 04/15/2014 MMR 10/29/2001 Tdap 04/23/2011 Family History Medical History Relation Name Comments Heart attack Brother 1 Other Brother 2 smoke inhalation fire Diabetes type II Brother 3 No Known Problems Brother 4 No Known Problems Brother 5 No Known Problems Brother 6 Other Daughter thyroid issue Rheum arthritis Daughter Cancer-colon Father Heart Disease Father Cancer-breast Other mat cousin Genetic Other mat cousin hx in her father of heart disease in his 50's ~No fam candido hx of anesthetic complications, b leeding disorders or family or person al hx of malignant hyperthermia.~ca ncer~diabetes~migrain es Cancer-breast Sister 1 40s Diabetes Sister 2 Heart failure Sister 2 Rheum arthritis Son Cancer-ovarian No Family History Relation Name Status Comments Brother 1 Brother 2 Brother 3 Alive Brother 4 Alive Brother 5 Alive Brother 6 Alive Daughter Alive Father Maternal Grandfather Maternal Grandmother Mother Other mat cousin Paternal Grandfather Paternal Grandmother Sister 1 (Age 46) Sister 2 Alive Son Alive Social History Tobacco Use Types Packs/Day Years Used Date Current Every Day Smoker Cigarettes 0.5 25 Smokeless Tobacco: Never Used Tobacco Cessation: Ready to Quit: No; Co unseling Given: Yes Alcohol Use Standard Drinks/Week Comments Not Currently 0 (1 standard drink = 0.6 oz pure very r are - couple of times a year alcohol) Alcohol Habits Answer Date Recorded How often do you have a drink Monthly or less 06/22/2019 containing alcohol? How many drinks containing alcohol do Not asked you have on a typical day when you are drinking? How often do you have six or more Not asked drinks on one occasion? Comment: very rare - couple of times a year 03/25 Sex Assigned at Date Recorded Female 07/31/2021 10:05 AM [employer] Obstetrics History Para Term AB IAB SAB Ectopic Multiple Living Live Births 2 2 2 0 0 0 0 0 2 Date Outcome GA Total Labor/2nd/3rd Weight Sex Delivery Anes PTL Yeimi A 1 A5 Name Clin Labor Term Term Last Filed Vital Signs Vital Sign Reading Time Taken Comments Blood Pressure 136/76 03/25/2022 7:30 AM CDT Pulse 76 08/01/2021 7:42 AM [employer] Temperature 36.9 ??C (98.4 ??F) 12/14/2019 11:15 AM CDT Respiratory Rate 18 10/13/2019 12:45 PM CDT Oxygen Saturation 97% 07/04/2020 7:33 AM [employer] Inhaled Oxygen Concentration - - Weight 99.3 kg (219 lb) 03/25/2022 7:27 AM CDT Height 162.6 cm (5' 4) 03/25/2022 7:27 AM CDT Body Mass Index 37.59 03/25/2022 7:27 AM CDT Plan of Treatment Health Maintenance Due Date Last Done Comments Pneumococcal series for age 65+ (1 1963 - PCV) Zoster (shingles) series for age 0905/01/2007 50+ (1 of 2) Colonoscopy through age 75 05/04/2020 05/04/2015, 4, 11/22/2013 Tetanus booster 04/23/2021 04/23/2011 COVID-19 vaccine series (4 - 09/03/2021 07/09/2021, 021, Booster for Pfizer series) 11/02/2020 DEXA/DXA scan for age 65+ 2022 Influenza for age 65+ 2022 04/13/2021, 05/04/2020, 06/22/2019, Additional history exists BMI (ht and wt on same day) for 03/25/2023 03/25/2022, 07/05, age 18+ 04/13/2021, Additional history exists Depression screening for age 12+ 03/25/2023 03/25/2022, , 03/25/2022, Additional history exists Mammogram for age 45-75 05/09/2023 05/09/2022, 06/28/2019, 09/12/2016, Additional history exists Lipids for age 45-75 03/22/2027 03/22/2022, 04/13/2021, 06/22/2019, Additional history exists Tdap Completed 04/23/2011 Hepatitis C screening for age Completed 06/22/2019 18-79 Procedures Procedure Name Priority Date/Time Associated Diagnosis Comme nts XR MAMMO JOHN BILAT Routine 05/09/2022 3:10 PM Encounter for R esults for this SCREEN CDT screening mammogram procedur e are in for breast cancer the result s section. BASIC METABOLIC Routine 03/22/2022 7:25 AM RBBB Result s for this PANEL CDT procedure are i n the results section. LIPID PANEL W Routine 03/22/2022 7:25 AM HYPERLIPIDEMIA Result s for this REFLEX MEASURED LDL CDT procedur e are in the results section. HEMOGLOBIN A1C Routine 03/22/2022 7:25 AM Type 2 diabetes Resu lts for this CDT mellitus without procedure a re in complication, without the re sults long-term current use sectio n. of insulin (HC) from Last 3 Months Results XR MAMMO JOHN BILAT SCREEN (05/09/2022 3:10 PM CDT) Anatomical Region Laterality Modality BREASTS, Breast Left, Breast Right Bilateral Mammo graphy Specimen (Source) Anatomical Location Collection Method / Collectio n Time Received Time / Laterality Volume Impressions 05/09/2022 3:41 PM CDT ??There is no radiographic evidence for malignancy. ??Recommend annual mammograms. MAMMOGRAM ASSESSMENT: ??ACR 1 Negative PATIENTS: You will also receive a letter with your examination results in an easy to read format. ??If you have qu estions about your results, please contact your referring provider. Narrative 05/09/2022 3:41 PM CDT For Patients: As a result of the Cures Act, medical imaging exams and procedure reports are released immediately into your electronic medical record. You may view this report before your referring provider. If you have questions, please contact [facility] care provider. XR MAMMO JOHN BILAT SCREEN [[id number]] CLINICAL HISTORY: ??This is an asymptoma tic 67 y.o. patient. INDICATION FOR EXAM: Mammogram Screening . TECHNIQUE: CC & MLO views were obtained. ??This study was evaluated with the assistance of Computer-Aided Detecti on. Breast Tomosynthesis was used in interpretation. COMPARISON FILM: Yes 06/28/19 ?? 09/12/16 ?? FINDINGS: ??The breasts have scattered a reas of fibroglandular density. There are no dominant masses, suspicious micro calcifications or areas of architectural distortion. Rashaad HATCH MAMMO (ABNORMAL) LIPID PANEL W REFLEX MEASURED LDL (03/22/2022 7:25 AM CDT) [facility] Method Time Signature CHOLESTEROL,TOTAL 180 100 - 199 03/22/2022 [facility] mg/dL 6:34 PM CDT [facility] TRIGLYCERIDES 188 (H) <150 03/22/2022 [facility] mg/dL 6:34 PM CDT [facility] HDL CHOLESTEROL 40 (L) >40 mg/dL 03/22/2022 [facility] 6:34 PM CDT [facility] NON-HDL 140 <145 03/22/2022 [facility] CHOLESTEROL mg/dl 6:34 PM CDT [facility] CHOL/HDL RATIO 4.50 (H) <4.50 03/22/2022 [facility] 6:34 PM CDT [facility] LDL CHOLESTEROL 102 <=130 03/22/2022 [facility] mg/dL 6:34 PM CDT [facility] VLDL CHOLESTEROL 38 (H) <=30 03/22/2022 [facility] mg/dL 6:34 PM CDT [facility] PROVIDER ORDERED FASTING 03/22/2022 [facility] STATUS 6:34 PM CDT [facility] Specimen Anatomical Collection Method / Collection Time Recei carolina Time (Source) Location / Volume Laterality Blood BLOOD SPECIMEN / Venipuncture / 03/22/2022 7:25 2021 7:25 Unknown Unknown AM CDT AM CDT Rashaad HATCH CHEMISTRY Performing Organization Address City/[facility]/ZIP Code Phon e Number [facility] [address] [place] [address] LABORATORY-CENTRAL 2000 LABORATORY HEMOGLOBIN A1C MONITORING (POCT) (03/22/2022 7:25 AM CDT) P athologist Signature HEMOGLOBIN A1C 6.1 <=6.4 % 03/22/2022 [facility] MONITORING 7:34 AM CDT [place] (POCT) [facility] Specimen Anatomical Collection Method / Collection Time Recei carolina Time (Source) Location / Volume Laterality Blood BLOOD SPECIMEN / Venipuncture / 03/22/2022 7:25 2021 7:25 Unknown Unknown AM CDT AM CDT Narrative [facility] [place] 7:34 AM CDT ? (<=6.9%) ? Indicates good control ? (7.0% to 7.9%) ? Indicates fa ir control ? (>=8.0%) ? Indicates poor control ?? NOTE: ??These thresholds are guideli иван and ?individual targets may va ry. Falsely low levels may be seen with: Recent Transfusion, Recent Significant B lood Loss, Hemolytic Diseases, or Falsely elevated levels may be seen with : Untreated Anemias, Splenectomy ? Rashaad HATCH CHEMISTRY Performing Organization Address City/[facility]/ZIP Code Phon e Number [facility] [address] [place], [place] [address] CLINIC (ABNORMAL) BASIC METABOLIC PANEL (03/22/2022 7:25 AM CDT) Analysis [facility] Time Signature SODIUM 142 135 - 145 03/22/2022 [facility] mmol/L 6:32 PM CDT [facility] POTASSIUM 4.6 3.5 - 5.0 03/22/2022 [facility] mmol/L 6:32 PM CDT [facility] CHLORIDE 107 98 - 110 03/22/2022 [facility] mmol/L 6:32 PM CDT [facility] CO2,TOTAL 25 21 - 31 03/22/2022 [facility] mmol/L 6:32 PM CDT [facility] ANION GAP 10 5 - 18 03/22/2022 [facility] 6:32 PM CDT [facility] GLUCOSE 118 (H) 65 - 100 03/22/2022 [facility] mg/dL 6:32 PM CDT [facility] CALCIUM 9.1 8.5 - 10.5 03/22/2022 [facility] mg/dL 6:32 PM CDT [facility] BUN 12 8 - 25 03/22/2022 [facility] mg/dL 6:32 PM CDT [facility] CREATININE 0.83 0.57 - 03/22/2022 [facility] 1.11 mg/dL 6:32 PM CDT [facility] BUN/CREAT RATIO 14 10 - 20 03/22/2022 [facility] 6:32 PM CDT [facility] eGFR 79 (L) >90 03/22/2022 [facility] mL/min/1.7 6:32 PM CDT [facility] 3m2 TRAL LABORATORY Comment: As of 2021, eGFR is calcu lated by the CKD-EPI creatinine equation without race adjustment. eGFR can be inf luenced by muscle mass, exercise, and diet. The reported eGFR is an estimation only and is only applicable if the renal function is stable. Specimen Anatomical Collection Method / Collection Time Recei carolina Time (Source) Location / Volume Laterality Blood BLOOD SPECIMEN / Venipuncture / 03/22/2022 7:25 2021 7:25 Unknown Unknown AM CDT AM CDT Rashaad HATCH CHEMISTRY Performing Organization Address City/State/ZIP Code Phon e Number [facility] [address] [place] [address] LABORATORY-CENTRAL 2000 LABORATORY from Last 3 Months Insurance Payer Benefit Plan / Subscriber ID Effective Dates Phone Addre ss Type Group [facility] [id number] 2017-Presen [address] [address] [place] [address] [facility] [id number] 2019-Prese [address] [address] [place] [address] Advance Directives Latest Code Status on File Code Status Date Activated Date Inactivated Comments Full Code 01/09/2011 8:48 AM 01/09/2011 9:41 AM Care Teams Template Layout Worker Relationship Specialty Start Date End Date Rashaad Talavera PA PCP - General Physician Associate Director Data & Analytics 03/22/22 [address] [place] [address] Rajan Turcios MD Otolaryngology ENT 01/04/11 Grey Freeman, Allergy and Immunology 1 MBBS Arun Tate Rheumatology Rheumatology 10/14/17 Mendez Aleman MD Orthopedics Surgery - Orthopedics 10/14/[address] [place] [address] (work)
--- OUTSIDE RECORDS SUMMARY | 2022-06-14 08:08 | XMS_ITS | Encounter Summary ---
:1955 Author Organization [facility] Address [address], [place] [address] Care Team Providers Name Role Phone Marta Hicks MD Primary Care Provider Unavailable Reason for Visit Reason Comments Refill Encounter Details Date Type Department Care Team Description 12/07/2020 Refill [facility] Rheumatol Arun Spangler MD Refill [address] [place] [address] [place], [place] [id number] (Wo rk) Social History Tobacco Use Types Packs/Day Years Used Date Smoking Tobacco: Every Day Cigarettes 0.5 Smokeless Tobacco: Never Alcohol Use Standard Drinks/Week Comments Yes 0 (1 standard drink = 0.6 oz pure alcoho l) Sex Assigned at Date Recorded Not on file documented as of this encounter Nursing Notes Arun Tate MD - 12/07/2020 11:49 AM CDT Celebrex refill is denied at this point, patient has not been seen in about a year and has no appointment scheduled, also has been over 1 year since monitoring labs necessary for prescribing Celebrex and I checked [facility] where she sometimes has labs done and we do not see the necessary labs which would include CBC AST and creatinine. documented in this encounter Plan of Treatment Upcoming Encounters Date Type Specialty Care Team Description 04/23/2023 Appointment Rheumatology Arun Tate M D [address] [facility] [address] [id number] (Wo rk) documented as of this encounter Visit Diagnoses Not on filedocumented in this encounter Care Teams Supplier Quality Relationship Specialty Start Date End Date Marta Hicks MD PCP - General Family Practice 01/03/17 documented as of this encounter
--- OUTSIDE RECORDS SUMMARY | 2022-06-14 08:08 | XMS_ITS | Encounter Summary ---
:1955 Author Organization [employer] [facility] Address [address], [place] [address] Care Team Providers Name Role Phone Marta Hicks MD Primary Care Provider Unavailable Reason for Visit Reason Comments Follow-up Encounter Details Date Type Department Care Team Description 04/29/2022 Office Visit Arun Brown M D Polyarticular osteoarthritis (Primary Dx ); Rheumatology [address] [facility] Erosive osteoarthritis of imani th hands; [address] Pain in both hands; [place] [address] [place], [place] termite renewal inspector current use of non -steroidal anti-inflammatories (NSAID) [phone] [id number] Social History Tobacco Use Types Packs/Day Years Used Date Smoking Tobacco: Every Day Cigarettes 0.5 Smokeless Tobacco: Never Alcohol Use Standard Drinks/Week Comments Yes 0 (1 standard drink = 0.6 oz pure alcoho l) Sex Assigned at Date Recorded Not on file documented as of this encounter Patient Instructions Patient InstructionsArun Tate MD - 04/29/2022 10:45 AM CDT Voltaren gel is over the counter - its like topical celebrex. And you can use it with Celebrex. You take a small amount (like lotion) and rub on sore areas. Its very safe. Continue tylenol, continue celebrex. Recheck in 1 year, sooner if problem. documented in this encounter Progress Notes Arun Tate MD - 04/29/2022 10:45 AM CDT RHEUMATOLOGY RECHECK This note was generated with voice activated powder core tester software and may contain typographical and word substitution errors. CC: Follow-up polyarticular and erosive osteoarthritis HPI: I initially evaluated her February 19, 2017. She has known multifocal osteoarthritis including knees, hips, hands, status post left knee replacement. She has known pretty significant DJD in the right hip and right knee. Left knee and right hip are replaced, and laminectomy in lumbar spine. May eventually need both shoulders, left hip, right knee. She has significant Heberden nodes. There has been some concern she may have mild psoriatic arthritis, but generally this has been in the background and not significant clinically. She was tried on methotrexate but he had 2020 was not requiring it and just going with Celebrex to manage symptoms. She saw Carol Herrmann PA-C in 2020, no changes were made. Lab data April 24, 2022 shows normal CBC and creatinine, AST was normal January,. This is about a 1 year follow-up visit. Interval history is reviewed. Generally she has been doing okay. She does hurt more after activity. She has significant Heberden nodes at DIP and thumb IP joints. She uses a lidocaine roller bar. She uses Tylenol p.r.n.. She has not tried Voltaren gel. She generally sleeps okay. She is on omeprazole for history of reflux and Traore's esophagus. 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 ADR/ALLERGIES: Updated in EMR PAIN & RAPID3: In flowsheet if completed by patient. Level of pain is 7.5 at worst OBJECTIVE: VS: Per flow sheet. General: NAD. Eyes: Externally clear. Chest: CTA. Musculoskeletal: All 4 limbs are examined. She has bony enlargement at multiple DIP joints, IP joints of the thumbs. She has mildly reduced motion in both shoulders, mild crepitation at the right knee Cutaneous: No rashes, nail fold capillary changes, Raynaud's, or psoriasis ASSESSMENT: 1: Osteoarthritis hands (erosive), hips, knees, shoulders 2: termite renewal inspector NSAID therapy PLAN: 1: Clinically, her osteoarthritis is stable but she certainly has significant and polyarticular disease. She may eventually need additional joint arthroplasties. 2: She will continue Celebrex 100 mg b.i.d.. We discussed increasing it to 200 mg b.i.d. but she is comfortable where she is currently. She will continue with Tylenol p.r.n. and I suggested trying [id number] Voltaren gel on the hands. 3: We discussed follow-up, she prefers annual follow-up in Rheumatology, will get CBC AST creatininein preparation for the visit next year, orders are placed. documented in this encounter Plan of Treatment Upcoming Encounters Date Type Specialty Care Team Description 04/23/2023 Appointment Rheumatology Arun Tate M D [address] [facility] [address] [id number] (Wo rk) Scheduled Orders Name Type Priority Associated Diagnoses Order S chedule AST Lab Routine prison current use of Exp ected: 03/29/2023, non-steroidal Expires: 04/29 anti-inflammatories (NSAID) CBC -W/Diff Lab Routine termite renewal inspector current use of Exp ected: 03/29/2023, non-steroidal Expires: 04/29 anti-inflammatories (NSAID) Creatinine / GFR Lab Routine termite renewal inspector current use of Expected: 03/29/2023, non-steroidal Expires: 04/29 anti-inflammatories (NSAID) documented as of this encounter Visit Diagnoses Diagnosis Polyarticular osteoarthritis - Primary Generalized osteoarthrosis, unspecified site Erosive osteoarthritis of both hands Pain in both hands termite renewal inspector current use of non-steroidal a nti-inflammatories (NSAID) Encounter for long-term (current) use of non-steroidal anti-inflammatories documented in this encounter Care Teams Deburrer Strip Relationship Specialty Start Date End Date Marta Hicks MD PCP - General Family Practice 01/03/17 documented as of this encounter
--- OUTSIDE RECORDS SUMMARY | 2022-06-14 08:08 | XMS_ITS | Encounter Summary ---
:1955 Author Organization [facility] Address [address] [address] Care Team Providers Name Role Phone Marta Hicks MD Primary Care Provider Unavailable Reason for Visit Reason Comments Follow-up Encounter Details Date Type Department Care Team Description 09/03/2019 Office Visit Carol Mays, Bilateral hand pain (Primary Dx); Rheumatology JUAN MANUEL Polyarticular osteoarthritis; [address] [employer] [address] [facility] Erosive osteoarthritis of imani th hands; [place] [address] Blvd Multiple joint pain; [phone] [place], [place] Psoriasis; [address] HLA B27 (HLA B27 positive); [phone] Myofascial pain syndrome; (Work) Encounter for long-term current use of h igh risk medication; penitentiary current use of non-steroidal anti-inflammatories (NSAID) Social History Tobacco Use Types Packs/Day [...] Comments Blood Pressure 152/75 09/03/2019 3:08 PM [employer]ITER [employer] Pulse 86 09/03/2019 3:08 PM [employer] Temperature - - Respiratory Rate - - Oxygen Saturation - - Inhaled Oxygen Concentration - - Weight 100.7 kg (222 lb) 09/03/2019 3:08 PM [employer]IC[employer] Height - - Body Mass Index 37.44 02/19/2017 10:16 AM CDT documented in this encounter Progress Notes Carol Herrmann, JUAN MANUEL - 09/03/2019 3:15 PM CST Rheumatology Clinic Note Encounter Date: 09/03/2019 Subjective Chief complaint: Follow up multiple joint pain, 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 Tate in 03/2017. She was initially evaluated by Dr. Tate in February 2017. She has known polyarticular osteoarthritis including hands, hips, knees-status post left knee replacement, and feet. She has advanced osteoarthritis in the right hip and right knee and may eventually need those replaced, follows with Dr. Mendez Chaudhry is at [facility] for this. She underwent a lumbar (L3-5) [address] Salazar at [facility] for spinal stenosis about a year ago. She has a history of psoriasis. In [...] normal iron studies, negative rheumatoid factor and CCP, but she did have a positive HLA-B27. Right hand x-ray showed definite osteoarthritic changes at the DIP joints, IP joint of the right thumb, there was also some slight narrowing of the 2nd and 3rd MCP joints without erosion or proliferative change, there were also marginal osteophytes at multiple PIP joints, the general picture was consistent with osteoarthritis. She had a positive HLA-B27, history of psoriasis, but at that time was not felt to definitely have psoriatic arthritis. She was given some meloxicam 15 mg daily. She thought that this was helpful in terms of discomfort in her hands, less puffiness in her hands, but only worked for about a month. Blood work from June 22, 2019 through [facility] ([facility]) demonstrated normal CBC, normal creatinine 0.85/GFR >60, normal ALT 25 and AST 24, and normal serum calcium 9.7. Negative Hepatitis C antibody. Please see my last clinic note from June 30, 2019 for a full updated history. Interval History Reviewed: This is a 1.5 month follow up for her. She took methotrexate 10 mg weekly for 2 weeks and has now been on 15 mg weekly for 2 weeks, is tolerating it well without oral ulcers, worsened hair loss, nauseaor GI upset, but does note a mild headache 1-3 days after taking it. She has also been taking Celebrex 100 mg b.i.d. since her last visit, has found this beneficial. She says that she feels less swollen and that the inflammation is leaving her body. However, still has polyarticular joint pain in multiple joints as well as generalized musculoskeletal pain. Hands feel less swollen but are still sore and stiff. Her right hip and right knee are still quite symptomatic where she has known advanced osteoarthritis, she has plans to follow up with Dr. Mendez Aleman at [facility] regarding this. Psoriasis is minimal, has a few small scattered patches, uses topical steroid cream with benefit. She has some mildparesthesias in both feet, possibly related to diabetes, this is stable. She is not currently exercis ing, does not sleep well. Reflux has been stable on omeprazole. No recent illnesses or infections. No fevers. Denies shortness of breath, cough, chest pains. No inflammatory eye, bowel, or back symptoms. No problems with bowels or bladder. Blood work from July 22 demonstrated negative hepatitis B studies, previously had a negative hepatitis C study in June through . Blood work from June 30 demonstrated a normal ESR 12, undetectable CRP <0.5, and normal TSH 1.78 Review of systems: Comprehensive review of systems form filled out by the patient for today's visit was reviewed, sent to [facility] and is as noted above and/or notable for: occasionally feeling feverish, shortness of breath, numbness, weakness, headaches, upset stomach, heartburn, constipation, and problems sleeping. Social History: . 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 Smoker. Minimal alcohol use. Medications: Updated in EMR but notable for: Celebrex 100 mg b.i.d., Methotrexate 15 mg weekly, folic acid 1 mg daily, tylenol arthritis p.r.n. Patient Active Problem List Diagnosis Date Noted ??? penitentiary current use of non-steroidal anti-inflammatories (NSAID) 03/26/2017 [...] flow sheet. General: NAD. Eyes: Externally Clear. Chest: CTA. No wheezing. Skin: Warm and dry. No visible rashes or psoriasis. No Raynaud changes. No open wound ulcers. No nailfold capillary changes. No fingernail changes. Neuro: No focal deficits. MSK: All 4 extremities were examined today. No significant active synovitis/dactylitis/joint effusion/inflammatory arthritis in any joints of the upper or lower extremities. Marked osteoarthritic changes in the hands with bony hypertrophy, tenderness scattered throughout the PIP and DIP joints, but noovert swelling or synovitis. Both wrists are sore with normal range of motion, no synovitis. Elbows move normally. Right greater than left shoulder has reduced range of motion more internally then externally. Right hip has moderately reduced internal and external rotation. Left knee has been replaced.There is tenderness along the medial right knee joint line, no appreciable warmth/inflammatory arthritis/effusion. Mild tenderness and generalized puffiness of both ankles but no significant warmth, synovitis or effusion. Tenderness throughout the MTP joints without synovitis. Multiple paired myofacial tender points on exam today. Laboratory/Imaging Studies: Blood work from July 22 demonstrated negative hepatitis B surface antigen and negative hepatitisB core antibody total. Blood work from June 30 demonstrated a normal ESR 12, undetectable CRP <0.5, and normal TSH 1.78 Blood work from June 22 through [facility], normal CBC, creatinine 0.85/GFR >60, ALT 25, AST 24, and calcium 9.7. Negative Hepatitis C antibody. Right hand x-ray from 06/30/2019 demonstrated scattered degenerative changes through the IP joints, significant hypertrophic changes at the index finger DIP joint and IP joint of the thumb, significantnarrowing of the 1-3 metacarpal phalangeal joints and in the triscaphe joint, no obvious erosive changes but degenerative changes have progressed since the prior study. Left hand x-ray from 06/30/2019 demonstrated findings similar to those on the right, significant hypertrophic changes at the DIP joint of the 2-4 fingers, thumb IP joint, and first CMC joint and triscaphe but again no obvious erosive change. Right hand MRI from 07/08/2019 demonstrated findings suspicious for inflammatory arthropathy with multi-joint synovitis and scattered foci of probable enhancing osseous erosions throughout the hand andwrist but also osteoarthritic degenerative changes through the hand and wrist including gull-wing morphology of multiple interphalangeal joints, suspicious for erosive osteoarthritis. Right shoulder x-ray from 06/30/2019 demonstrated narrowing of the glenohumeral joint with significant spurring from the inferomedial aspect of the humeral head and glenoid rim and degenerative change also noted at the acromioclavicular joint. Assessment: 1. History of bilateral hand pain, stiffness, and ?swelling suggestive of osteoarthritis with a component of erosive inflammatory osteoarthritis and question possible ?psoriatic arthritsis (with positive HLA-B27 and psoriasis) 2. Polyarticular osteoarthritis of the hands, hips, and knees; status post left knee replacement 3. Multiple joint pain; myofascial pain syndrome 4. Positive HLA-B27, history of psoriasis 5. Chronic degenerative low back pain and spinal stenosis s/p lumbar spine surgery 6. GERD 7. Chronic long-term high-risk medication monitoring; Long-term daily NSAID use RAPID 3 score = if completed by patient will be scanned into the sdoc. Plan: 1. Long discussion with Marie. Very complex situation. She has a positive HLA-B27 and psoriasis. Psoriasis remains minimal and controlled with topical medications. No history of inflammatory eye, bowel or back symptoms. Regarding her joint symptoms, she has had chronic polyarticular joint pain and widespread musculoskeletal pain, with a combination of inflammatory and noninflammatory features on clinical history and exam. She has polyarticular osteoarthritis in the hands, right hip, and right knee. Bilateral hand x-rays and right hand MRI demonstrate features of osteoarthritis as well as erosiveinflammatory osteoarthritis. It is challenging to know if she has an inflammatory arthritis (psoriatic arthritis given history of psoriasis and positive HLA-B27) superimposed on the osteoarthritis and erosive inflammatory OA given findings of synovitis on MRI despite overt synovitis on exam. The recent normal inflammatory markers make significant systemic inflammation unlikely. 2. We decided to try methotrexate to see how much benefit this provided. She has had 4 doses so far,is tolerating it well-mild headaches, and is overall feeling better with this but challenging to know exactly how much as she continues to have widespread musculoskeletal pain. I would like for her to continue with methotrexate 15 mg once weekly for now, we can consider increasing the dose in the future to see if this is beneficial or not, but I would wait as she has only been on it for 4 weeks so far. Continue folic acid 1 mg/day. 3. I also explained to her that she has quite a bit of myofacial pain on exam. There may be a component of central sensitization playing a role in her chronic widespread musculoskeletal pain as well. Encouraged restorative sleep and low- impact aerobic exercise. Continue Celebrex 100 mg b.i.d. with food, avoid additional anti-inflammatories with this. Can take Tylenol (actaminophen) as needed up to 4000 mg/day. Can use topical analgesics. Recommend I-GHULAM arthritis gloves. I think Cymbalta, gabapentinor Lyrica could be options in the future. 4. Blood work from June 22 through demonstrated a normal CBC, creatinine, ALT and AST. Wewill continue checking blood work every 3 months to monitor methotrexate. 5. Follow up with Dr. Tate in November 2018, earlier if problems arise. Plan discussed with the patient in detail, verbalized understanding and agreement with this approach, all questions answered. Carol Herrmann PA-C [employer] documented in this encounter Plan of Treatment Upcoming Encounters Date Type Specialty Care Team Description 04/23/2023 Appointment Rheumatology Arun Tate M D [address] [id number] (Wo rk) documented as of this encounter Visit Diagnoses Diagnosis Bilateral hand pain - Primary Pain in limb Polyarticular osteoarthritis Generalized osteoarthrosis, unspecified site Erosive osteoarthritis of both hands Multiple joint pain Pain in joint, multiple sites Psoriasis Other psoriasis HLA B27 (HLA B27 positive) Genetic susceptibility to other disease Myofascial pain syndrome Mylagia and myositis, unspecified Encounter for long-term current use of h igh risk medication penitentiary current use of non-steroidal a nti-inflammatories (NSAID) Encounter for long-term (current) use of non-steroidal anti-inflammatories documented in this encounter Care Teams Silk Screener Relationship Specialty Start Date End Date Marta Hicks MD PCP - General Family Practice 01/03/17 documented as of this encounter
--- OUTSIDE RECORDS SUMMARY | 2022-06-14 08:08 | XMS_ITS | Encounter Summary ---
:1955 Author Organization [facility] Address [address], [place] [address] Care Team Providers Name Role Phone Marta Hicks MD Primary Care Provider Unavailable Encounter Details Date Type Department Care Team Description 01/02/2021 Lab Visit [place] [facility] longterm current use of non -steroidal anti-inflammatories (NSAID); [address] [place] [address] Social History Tobacco Use Types Packs/Day [...] 04/23/2023 Appointment Rheumatology Arun Tate M D [address] [id number] (Wo rk) documented as of this encounter Procedures Procedure Name Priority Date/Time Associated Comments Diagnosis CBC AND DIFFERENTIAL Routine 01/02/2021 4:15 PM longterm curr ent Results for this PANEL CDT use of procedure are i n non-steroidal the results anti-inflammatories section. (NSAID) CREATININE / GFR Routine 01/02/2021 4:15 PM longterm current Results for this CDT use of procedure are i n non-steroidal the results anti-inflammatories section. (NSAID) COMPLETE BLOOD Routine 01/02/2021 4:15 PM longterm current Re sults for this COUNT-W/DIFF CDT use of procedure are i n non-steroidal the results anti-inflammatories section. (NSAID) AST Routine 01/02/2021 4:15 PM Pain in both hands Res ults for this CDT procedure are i n the results section. documented in this encounter Results (ABNORMAL) Complete Blood Count-W/Diff (01/02/2021 4:15 PM CDT) [facility] Method Time Signature WBC 7.9 3.5 - 10.5 01/02/2021 [facility] x10(9)/L 4:17 PM CDT LABORATORY (HP) RBC 4.50 3.90 - 01/02/2021 [facility] 5.03 4:17 PM CDT LABORATORY x10(12)/L (HP) Hemoglobin 14.0 12.0 - 01/02/2021 [facility] 15.5 g/dL 4:17 PM CDT LABORATORY (HP) HCT 42.2 34.9 - 01/02/2021 [facility] 44.5 % 4:17 PM CDT LABORATORY (HP) MCV 93.8 80.0 - 01/02/2021 [facility] 100.0 fL 4:17 PM CDT LABORATORY (HP) MCH 31.1 27.6 - 01/02/2021 [facility] 33.3 pg 4:17 PM CDT LABORATORY (HP) MCHC 33.2 31.5 - 01/02/2021 [facility] 35.2 g/dL 4:17 PM CDT LABORATORY (HP) RDW 11.7 (L) 11.9 - 01/02/2021 [facility] 15.5 % 4:17 PM CDT LABORATORY (HP) Platelets 221 150 - 450 01/02/2021 [facility] x10(9)/L 4:17 PM CDT LABORATORY (HP) Neutrophil 2.8 1.7 - 7.0 01/02/2021 [facility] Absolute 10(9)/L 4:17 PM CDT LABORATORY (HP) Lymphocyte 4.0 1.0 - 4.8 01/02/2021 [facility] Absolute 10(9)/L 4:17 PM CDT LABORATORY (HP) Monocytes 0.8 0.2 - 0.9 01/02/2021 [facility] Absolute 10(9)/L 4:17 PM CDT LABORATORY (HP) Eosinophil 0.2 0.0 - 0.5 01/02/2021 [facility] Absolute 10(9)/L 4:17 PM CDT LABORATORY (HP) Basophil 0.1 0.0 - 0.3 01/02/2021 [facility] Absolute 10(9)/L 4:17 PM CDT LABORATORY (HP) Immature Gran % 0.0 0.0 - 0.5 01/02/2021 [facility] % 4:17 PM CDT LABORATORY (HP) Specimen Anatomical Collection Method / Collection Time Recei carolina Time (Source) Location / Volume Laterality Blood Venipuncture / 01/02/2021 4:15 01/02/2021 4:15 Unknown PM CDT PM CDT Carol Herrmann PA-C LAB_1 Performing Organization Address City/[facility]/ZIP [facility] Phon e Number [facility] () [address] [place] [address] AST - Aspartate Aminotransferase (01/02/2021 4:15 PM CDT) P athologist Signature AST (SGOT) 23 10 - 40 01/02/2021 [facility] U/L 6:34 PM CDT CENTRAL LAB Specimen Anatomical Collection Method / Collection Time Recei carolina Time (Source) Location / Volume Laterality Blood Venipuncture / 01/02/2021 4:15 01/02/2021 4:15 Unknown PM CDT PM CDT Carol Herrmann PA-C LAB_1 Performing Organization Address City/[facility] Code Phon e Number [facility] CENTRAL LAB [address] [address] CREAT - Creatinine (01/02/2021 4:15 PM CDT) [facility] Method Time Signature Creatinine 0.85 0.55 - 01/02/2021 [facility] 1.02 6:34 PM CDT CENTRAL LAB mg/dL GFR, Estimated >60 >60 01/02/2021 [facility] mL/min/1. 6:34 PM CDT CENTRAL LAB 73m2 Specimen Anatomical Collection Method / Collection Time Recei carolina Time (Source) Location / Volume Laterality Blood Venipuncture / 01/02/2021 4:15 01/02/2021 4:15 Unknown PM CDT PM CDT Carol M Zaudke PA-C LAB_1 Performing Organization Address City/State/ZIP Code Phon e Number [facility] [address] [place] [phone] documented in this encounter Visit Diagnoses Diagnosis longterm current use of non-steroidal a nti-inflammatories (NSAID) Encounter for long-term (current) use of non-steroidal anti-inflammatories Pain in both hands documented in this encounter Care Teams Occ Ther Relationship Specialty Start Date End Date Marta Hicks MD PCP - General Family Practice 01/03/17 documented as of this encounter
--- OUTSIDE RECORDS SUMMARY | 2022-06-14 08:08 | XMS_ITS | Encounter Summary ---
:1955 Author [facility] Address [address], [place] [address] Care Team Providers Name Role Phone Marta Hicks MD Primary Care Provider Unavailable Encounter Details Date Type Department Care Team Description 04/24/2022 Lab Visit [facility] technology education teacher current use of [address] [place] [address] anti-inflammatories (NSAID) [phone] Social History Tobacco Use Types Packs/Day Years [...] 04/23/2023 Appointment Rheumatology Arun Tate M D [address] [id number] (Wo rk) documented as of this encounter Procedures Procedure Name Priority Date/Time Associated Comments Diagnosis CBC AND DIFFERENTIAL Routine 04/24/2022 11:23 halfway curren t Results for this PANEL AM CDT use of procedure are i n non-steroidal the results anti-inflammatories section. (NSAID) CREATININE / GFR Routine 04/24/2022 11:23 technology education teacher current Re sults for this AM CDT use of procedure are i n non-steroidal the results anti-inflammatories section. (NSAID) COMPLETE BLOOD Routine 04/24/2022 11:23 halfway current Resu lts for this COUNT-W/DIFF AM CDT use of procedure are i n non-steroidal the results anti-inflammatories section. (NSAID) documented in this encounter Results Complete Blood Count-W/Diff (04/24/2022 11:23 AM CDT) P athologist Signature WBC 7.7 3.5 - 10.5 04/24/2022 [facility] x10(9)/L 11:25 AM CDT LABORATORY (HP) RBC 4.66 3.90 - 04/24/2022 [facility] 5.03 11:25 AM CDT LABORATORY (HP) x10(12)/L Hemoglobin 14.6 12.0 - 04/24/2022 [facility] 15.5 g/dL 11:25 AM CDT LABORATORY (HP) HCT 43.4 34.9 - 04/24/2022 [facility] 44.5 % 11:25 AM CDT LABORATORY (HP) MCV 93.1 80.0 - 04/24/2022 [facility] 100.0 fL 11:25 AM CDT LABORATORY () MCH 31.3 27.6 - 04/24/2022 [facility] 33.3 pg 11:25 AM CDT LABORATORY () MCHC 33.6 31.5 - 04/24/2022 [facility] 35.2 g/dL 11:25 AM CDT LABORATORY () RDW 12.3 11.9 - 04/24/2022 [facility] 15.5 % 11:25 AM CDT LABORATORY () Platelets 210 150 - 450 04/24/2022 [facility] x10(9)/L 11:25 AM CDT LABORATORY () Neutrophil 3.1 1.7 - 7.0 04/24/2022 [facility] Absolute 10(9)/L 11:25 AM CDT LABORATORY (HP) Lymphocyte 3.6 1.0 - 4.8 04/24/2022 [facility] Absolute 10(9)/L 11:25 AM CDT LABORATORY (HP) Monocytes 0.8 0.2 - 0.9 04/24/2022 [facility] Absolute 10(9)/L 11:25 AM CDT LABORATORY (HP) Eosinophil 0.2 0.0 - 0.5 04/24/2022 [facility] Absolute 10(9)/L 11:25 AM CDT LABORATORY (HP) Basophil 0.1 0.0 - 0.3 04/24/2022 [facility] Absolute 10(9)/L 11:25 AM CDT LABORATORY (HP) Immature Gran % 0.0 0.0 - 0.5 04/24/2022 [facility] % 11:25 AM CDT LABORATORY (HP) Specimen Anatomical Collection Method / Collection Time Recei carolina Time (Source) Location / Volume Laterality Blood Venipuncture / 04/24/2022 11:23 2 Unknown AM CDT 11:23 AM CDT Arun Tate MD LAB_1 Performing Organization Address City/[facility]/ZIP Code Phon e Number [facility] (HP) [address] [place] [address] Creatinine / GFR (04/24/2022 11:23 AM CDT) [facility] gist Method Time Signature Creatinine 0.84 0.55 - 04/24/2022 [facility] 1.02 3:11 PM CDT CENTRAL LAB mg/dL GFR, Estimated >60 >60 04/24/2022 [facility] mL/min/1. 3:11 PM CDT CENTRAL LAB 73m2 Specimen Anatomical Collection Method / Collection Time Recei carolina Time (Source) Location / Volume Laterality Blood Venipuncture / 04/24/2022 11:23 2 Unknown AM CDT 11:23 AM CDT Arun Tate MD LAB_1 Performing Organization Address City/[facility] Phon e Number [facility] CENTRAL LAB [address] [address] documented in this encounter Visit Diagnoses Diagnosis technology education teacher current use of non-steroidal a nti-inflammatories (NSAID) Encounter for long-term (current) use of non-steroidal anti-inflammatories documented in this encounter Care Teams Acetylene Gas Compressor Relationship Specialty Start Date End Date Marta Hicks MD PCP - General Family Practice 01/03/17 documented as of this encounter
--- OUTSIDE RECORDS SUMMARY | 2022-06-14 08:08 | XMS_ITS | Encounter Summary ---
:1955 Author Organization [facility] Address [address] [address] Care Team Providers Name Role Phone Marta Hicks MD Primary Care Provider Unavailable Encounter Details Date Type Department Care Team Description 09/06/2019 Notes/Orders [place] [facility] Carol Lackey, PA-C [address] [place] [address] [place] [address] [phone] (Wo rk) Social History Tobacco Use Types [...] Appointment Rheumatology Arun Tate M D [address] [facility] [address] [address] (Wo rk) documented as of this encounter Visit Diagnoses Not on filedocumented in this encounter Care Teams Promotional Model Relationship Specialty Start Date End Date Marta Hicks MD PCP - General Family Practice 01/03/17 documented as of this encounter
--- OUTSIDE RECORDS SUMMARY | 2022-06-14 08:08 | XMS_ITS | Encounter Summary ---
:1955 Author Organization [facility] Address [address], [place] [address] Care Team Providers Name Role Phone Marta Hicks MD Primary Care Provider Unavailable Reason for Visit Reason Comments Refill Encounter Details Date Type Department Care Team Description 12/19/2021 Refill [facility] [address] Arun Tate MD Refill [facility]umat[facility] [address] [facility] [address] [place] [address] [place] [address] [phone] Social History Tobacco Use Types Packs/Day Years Used Date Smoking Tobacco: Every Day Cigarettes 0.5 Smokeless Tobacco: Never Alcohol Use Standard Drinks/Week Comments Yes 0 (1 standard drink = 0.6 oz pure alcoho l) Sex Assigned at Date Recorded Not on file documented as of this encounter Nursing Notes Dona Shah RN - 12/19/2021 9:48 AM CDT LV: 12/15/20 NV: Due December 2021 Patient had CBC, Creatinine labs on 01/02/21 and values were within refill range. Mychart message sent, filled for 90 days. Renewed medication per medication refill protocol. Requested Prescriptions Pending Prescriptions Disp Refills ??? celecoxib (CELEBREX) 100 MG capsule [Pharmacy Med Name: CELECOXIB CAPS 100MG] 180 Capsule 0 Sig: Take 1 Capsule (100 mg) by mouth two times a day. APPOINTMENT NEEDED FOR REFILLS documented in this encounter Plan of Treatment Upcoming Encounters Date Type Specialty Care Team Description 04/23/2023 Appointment Rheumatology Arun Tate M D [address] [phone] (Wo rk) documented as of this encounter Visit Diagnoses Not on filedocumented in this encounter Care Teams Gate Watchman Relationship Specialty Start Date End Date Marta Hicks MD PCP - General Family Practice 01/03/17 documented as of this encounter
--- OUTSIDE RECORDS SUMMARY | 2022-06-14 08:08 | XMS_ITS | Encounter Summary ---
:1955 [facility] Organization [email or web address] Address [address], [place] [address] Care Team Providers Name Role Phone Marta Hicks MD Primary Care Provider Unavailable Reason for Visit Reason Comments Video Visit Follow-up Encounter Details Date Type Department Care Team Description 12/15/2020 Telemedicine [place] Carol Herrmann, Polyarticu lar osteoarthritis (Primary Dx); Rheumatology JUAN MANUEL Erosive osteoarthritis of both hands; [address] Pain in both hands; [address] [employer] Status post total replacement of right h ip; [place], [place] Status p ost total left knee replacement; [id number] Multiple joint pain; [phone] HLA B27 (HLA B2 7 positive); (Work) Psoriasis; [phone] Gastroesophagea l reflux disease without esophagitis; (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 Tate Subjective Chief complaint: Follow up polyarticular osteoarthritis s/p right TAMI and left TKA, hand osteoarthritis (erosive), history of positive HLA-B27 and psoriasis with history of ?psoriatic arthritis History of present illness: Marie Bernal is a very pleasant 65 y.o. female who is seen today in follow up. The patient last hada telemedicine visit with Dr. Tate in November 2019. The patient was initially evaluated by Dr. Tate in February 2017. She has polyarticular osteoarthritis including hands (erosive), hips - s/p right TAMI, and knees - left TKA and advanced in the right knee. She follows with Dr. Mendez Aleman at [facility], also follows with Dr. Salazar at [facility] for lumbar spinal stenosis s/p lumbar L3-5 surgery. She has had some soreness of the right 2/3 MCP joint with intermittent swelling. There was some concern that she might have psoriatic arthritis given history of psoriasis, although clinically the swelling was very subtle, she was given some Meloxicam to try which she thought was helpful in terms of discomfort in her hands, less puffiness, but only worked for about a month. . Blood work at that time showed normal CBC and creatinine, normal sed rate 8 and undetectable CRP, slight elevation in serum calcium [...] at multiple PIP joints, the general picture isconsistent with osteoarthritis. I saw the patient in 2019 and we obtained a right hand MRI which demonstrated findings were suspicious for inflammatory arthropathy including multi-joint synovitis and scattered foci of probable enhancing osseous erosions throughout the hand and wrist, also there were also osteoarthritic changes throughout the hand. We elected to try methotrexate working up to 15 mg weekly and added Celebrex 100 mg b.i.d. Unfortunately, she did not tolerate methotrexate due to some unusual migraine symptoms. The patient last saw Dr. Tate in November 2019 via telemedicine, was off of methotrexate, remained on Celebrex which she found helpful for joint symptoms and was continued. She was planning a right hip replacement but this had been postponed because of the COVID pandemic. Psoriasis was doing well. This was a telemedicine video visit. The patient was located at home I was located in the [facility]. Interval History Reviewed: This is an annual follow up for the patient. She has felt well. She is now status post right total hip arthroplasty with Dr. Aleman at [facility] in December 2019 with excellent results. She hassome occasional soreness and aching pain in the hands, perhaps some intermittent but mild swelling in the right greater than left 2/3 MCP joints, most notable after prolonged use of her hands or at theend of the day. She does continue to find the Celebrex helpful in reducing the pain, stiffness, and swelling in the hands but also for generalized osteoarthritic and musculoskeletal pain. Denies any additional persistently painful swollen joints. No dactylitis or enthesitis. Tolerates the Celebrex well without noticeable side effects including worsening reflux, GI upset or nausea, remains on omeprazole 40 mg/d. Uses tylenol and salon pas p.r.n. with some benefit. Psoriasis has not been an issue, very minimal, has a couple small scattered patches which are not bothersome. No history of inflammatory eye or bowel symptoms - denies bloody/mucousy/nocturnal loose stool/diarrhea, no inflammatory neck or back pain. She otherwise has been feeling well and denies any changes to her health. She has been working remotely from home during the pandemic, will be going backto the office in early January. The last monitoring labs from October 2019 through included a normal CBC and creatinine. We will plan to update monitoring labs. She has completed the COVID-19 vaccine series. Review of Systems: Comprehensive review of systems was reviewed with the patient and is noted above. Social History: . Lives in [place], [place]. 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 Smoker. Minimal alcohol use. Medications: Updated in EMR but notable for: Celebrex 100 mg b.i.d., tylenol arthritis p.r.n., topical salon pas p.r.n., recommended trial of topical Voltaren gel up to 4 times daily p.r.n. Patient Active Problem List Diagnosis Date Noted ??? shelter current use of non-steroidal anti-inflammatories (NSAID) 03/26/2017 [...] horses, mold and grass: sneezing Objective EXAM General: Very pleasant. Conversant. NAD. Psychiatric: Alert and oriented, good affect. ENT: Eyes externally clear, anicteric, noninjected sclerae; Moist mucous membranes, good dentition. Cutaneous: Warm and dry. No visible rashes or psoriasis. No Raynaud's. No nailfold capillary changes. Neuro: Facial, oral and ocular function is symmetric. MSK: Both upper extremities are examined. She has definite bony enlargement at the right greater than left 2/3 MCP joints without visible swelling, bony enlargement scattered throughout the PIP and DIPjoints bilaterally consistent with osteoarthritis Without appreciable swelling. She is able to make good fists. Wrists, elbows, shoulders all have fairly good range of motion without pain. Imaging Studies: MR Right Hand, 07/08/2019 - demonstrated findings suspicious for inflammatory arthropathy with multi-joint synovitis and scattered foci of probable enhancing osseous erosions throughout the hand and wrist but also osteoarthritic degenerative changes through the hand and wrist including gull-wing morphology of multiple interphalangeal joints, suspicious for erosive osteoarthritis. XR Right Hand, 06/30/2019 - demonstrated scattered degenerative changes through the IP joints, significant hypertrophic changes at the index finger DIP joint and IP joint of the thumb, significant narrowing of the 1-3 metacarpal phalangeal joints and in the triscaphe joint, no obvious erosive changes but degenerative changes have progressed since the prior study. XR Left Hand, 06/30/2019 - demonstrated findings similar to those on the right, significant hypertrophic changes at the DIP joint of the 2-4 fingers, thumb IP joint, and first CMC joint and triscaphe but again no obvious erosive change. XR Right Shoulder, 06/30/2019 - demonstrated narrowing of the glenohumeral joint with significant spurring from the inferomedial aspect of the humeral head and glenoid rim and degenerative change also noted at the acromioclavicular joint. Assessment: 1. Polyarticular osteoarthritis - hand osteoarthritis (erosive), osteoarthritis of the hips - s/p right TAMI, and knees - s/p left TKA 2. Multiple joint pain, tenderness right 2nd and 3rd MCP joints with mild cartilage wear at those joints; myofacial pain 3. Positive HLA-B27, history of psoriasis, synovitis on hand MRI suggestive of psoriatic arthritis, but clinically still remains most consistent with osteoarthritis 4. Chronic degenerative low back pain and spinal stenosis s/p lumbar spine surgery 5. GERD 6. History of migraines; Unusual reaction to methotrexate with increased migraine type symptoms and aura 7. Long-term NSAID therapy Plan: 1. Marie is doing well. Polyarticular osteoarthritis and hand OA (erosive) is manageable. She is now status post right TAMI with excellent results. Continue Celebrex 100 mg b.i.d., could increase to 200 mg b.i.d. if increased joint symptoms, continue Omeprazole 40 mg/d for reflux and stomach protection. Can take Tylenol (actaminophen) up to 4000 mg/day p.r.n. Can use topical analgesics - Voltaren gel or salon pas. Recommend trial of IMAK-arthritis gloves. I think Cymbalta, gabapentin or Lyrica could be options in the future if needed. 2. Psoriasis has been very minimal. She has not manifested clinical symptoms highly suggestive of PsA. Denies persistently painful swollen joints. No dactylitis or enthesitis. No history of inflammatory eye, bowel or back symptoms. 3. Encouraged restorative sleep and low-impact aerobic exercise, healthy weight loss. 4. We will update blood work for CBC, AST, and creatinine to monitor the Celebrex. We will continue to renew the Celebrex annually, would require annual clinic visit and monitoring labs, patient understands. 5. The patient will follow-up with Dr. Tate or Chaz in 1 year, earlier problems arise. She was given our clinic contact information and advised to call and/or follow-up in clinic if she has questions, concerns or problems in the interim. Plan discussed with the patient in detail, verbalized understanding and agreement with this approach, all questions answered. Carol Herrmann PA-C Department of Rheumatology documented in this encounter Plan of Treatment Upcoming Encounters Date Type Specialty Care Team Description 04/23/2023 Appointment Rheumatology Arun Tate M D [address] [facility] [place] [address] (Wo rk) documented as of this encounter Results AST - Aspartate Aminotransferase (01/02/2021 4:15 PM CDT) P athologist Signature AST (SGOT) 23 10 - 40 01/02/2021 [facility] U/L 6:34 PM CDT [facility] Specimen Anatomical Collection Method / Collection Time Recei carolina Time (Source) Location / Volume Laterality Blood Venipuncture / 01/02/2021 4:15 01/02/2021 4:15 Unknown PM CDT PM CDT Carol Herrmann PA-C LAB_1 Performing Organization Address [facility] e Number [facility] [address] [place] [address] CREAT - Creatinine (01/02/2021 4:15 PM CDT) [facility] Method Time Signature Creatinine 0.85 0.55 - 01/02/2021 [facility] 1.02 6:34 PM CDT [facility] mg/dL GFR, Estimated >60 >60 01/02/2021 [facility] mL/min/1. 6:34 PM CDT CEN[facility]AL LAB 73m2 Specimen Anatomical Collection Method / Collection Time Recei carolina Time (Source) Location / Volume Laterality Blood Venipuncture / 01/02/2021 4:15 01/02/2021 4:15 Unknown PM CDT PM CDT Carol Herrmann PA-C LAB_1 Performing Organization Address [facility] Phon e Number [facility] [address] [address] documented in this encounter Visit Diagnoses Diagnosis Polyarticular osteoarthritis - Primary Generalized osteoarthrosis, unspecified site Erosive osteoarthritis of both hands Pain in both hands Status post total replacement of right h ip Status post total left knee replacement Multiple joint pain Pain in joint, multiple sites HLA B27 (HLA B27 positive) Genetic susceptibility to other disease Psoriasis Other psoriasis Gastroesophageal reflux disease without esophagitis 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
--- OUTSIDE RECORDS SUMMARY | 2022-06-14 08:08 | XMS_ITS | Encounter Summary ---
:1955 Author Organization [facility] Address [address], [place] [address] Care Team Providers Name Role Phone Marta Hicks MD Primary Care Provider Unavailable Reason for Visit Reason Comments Refill Encounter Details Date Type Department Care Team Description 12/30/2019 Refill [place] [facility] Carol Lackey PA-C Refill [address] [place] [address] [place], [place] [id number] ([place]) Social History Tobacco Use Types Packs/Day Years Used Date Smoking Tobacco: Every Day Cigarettes 0.5 Smokeless Tobacco: Never Alcohol Use Standard Drinks/Week Comments Yes 0 (1 standard drink = 0.6 oz pure alcoho l) Sex Assigned at Date Recorded Not on file documented as of this encounter Nursing Notes Dorita Solomon PA-C - 12/30/2019 10:26 AM CDT We do not have CBC or creatinine tested. Please tell her that we need these blood tests checked every 6 months if she is going to remain on the Celebrex or any NSAID. Temporary refill of Celebrex has been authorized but no further refills until labs are done. Standing lab orders are in place. documented in this encounter Plan of Treatment Upcoming Encounters Date Type Specialty Care Team Description 04/23/2023 Appointment Rheumatology Arun Tate M D [address] [facility] [id number] ([place]) documented as of this encounter Visit Diagnoses Not on filedocumented in this encounter Care Teams Vice President Financial Relationship Specialty Start Date End Date Marta Hicks MD PCP - General Family Practice 01/03/17 documented as of this encounter
--- OUTSIDE RECORDS SUMMARY | 2022-06-14 08:09 | XMS_ITS | Encounter Summary ---
:1955 Author Organization [facility] Address [address], [place] [address] Care Team Providers Name Role Phone Marta Hicks MD Primary Care Provider Unavailable Reason for Visit Procedure/Equipment (Routine) - Incomplete Specialty Diagnoses / Procedures Referred By Contact Refer red To Contact Diagnoses HLA B27 (HLA B27 positive) Bilateral hand pain Carol Herrmann, PA-C Procedures XR Hand Lt 3+ Views [address] [place], [place] [address] Referral ID Status Reason Start Date Expiration Date Visits V isits Requested Authorized [id number] Incomplete 06/30/2019 09/28/2020 1 1 Encounter Details Date Type Department Care Team Description 06/30/2019 Ancillary [place] Carol Herrmann, HLA B27 (H LA B27 positive); Procedure Radiology PA-C Bilateral hand pain [address] [place] [address] [phone] Social History Tobacco Use Types Packs/Day Years Used Date Smoking Tobacco: Every Day Cigarettes 0.5 Smokeless Tobacco: Never Alcohol Use Standard Drinks/Week Comments Not Currently 0 (1 standard drink = 0.6 oz pure alcoho l) Sex Assigned at Date Recorded Not on file documented as of this encounter Plan of Treatment Upcoming Encounters Date Type Specialty Care Team Description 04/23/2023 Appointment Rheumatology Arun Tate M D [address] [facility] N [address] (Wo rk) documented as of this encounter Procedures Procedure Name Priority Date/Time Associated Diagnosis Comme nts XR HAND LT 3+ VIEWS Routine 06/30/2019 1:43 PM HLA B27 (HLA B2 7 Results for this SANITATION DIRECTOR positive) procedure are in Bilateral hand pain the resu lts section. documented in this encounter Results XR Hand Lt 3+ Views (06/30/2019 1:43 PM SANITATION DIRECTOR) Anatomical Region Laterality Modality Upper Extremity, Hand Digital Radiograph y Specimen (Source) Anatomical Collection Method Collection Time Re ceived Time Location / / Volume Laterality 06/30/2019 1:39 PM SANITATION DIRECTOR Impressions 06/30/2019 1:56 PM SANITATION DIRECTOR COMPARISON: ??Right hand films dated 02/19/2017. IMPRESSION: Bilateral osteoarthritis, le ft greater than right. Right hand: There is scattered joint spa ce loss affecting the interphalangeal joints. Significant hypertrophic changes are noted at the DIP joint of the second finger and the IP joint of the thumb. Ther e is also significant narrowing of the t riscaphe joint in the carpus and the first through third metacarpal or phalangeal joints. Degenerative changes have progressed since the prior study. There are no acute fractures. No obvious erosive change. Left hand: Findings on the left are emmanuel lar to those on the right with scattered degenerative joint disease affecting the interphalangeal joints and metacarpophalangeal joints with significant hypertrop hic changes at the DIP joints of the sec ond through fourth fingers and IP joint of the thumb. There is also significant narrowing of the triscaphe and first carpometacarpal joints of the carpus. No acute fractures. No obvious erosive change. Procedure Note Jody Arce MD - 06/30/2019Formattin g of this note might be different from the original. IMPRESSION COMPARISON: Right hand films dated 02/19. IMPRESSION: Bilateral osteoarthritis, le ft greater than right. Right hand: There is scattered joint spa ce loss affecting the interphalangeal joints. Significant hypertrophic changes are noted at the DIP joint of the second finger and the IP joint of the thumb. There is also significant narrowing of the trisca phe joint in the carpus and the first through third metacarpal or phalangeal joints. Degenerative changes have progressed since the prior study. There are no acute fractures. No obvious erosive change. Left hand: Findings on the left are emmanuel lar to those on the right with scattered degenerative joint disease affecting the interphalangeal joints and metacarpophalangeal joints with significant hypertrophic changes at the DIP joints of the second through fou rth fingers and IP joint of the thumb. There is also significant narrowing of the triscaphe and first carpometacarpal joints of the carpus. No acute fractures. No obvious erosive change. Carol Herrmann PA-C RAD GD XR Hand Rt 3+ Views (06/30/2019 1:39 PM SANITATION DIRECTOR) Anatomical Region Laterality Modality Upper Extremity, Hand Digital Radiograph y Specimen (Source) Anatomical Collection Method Collection Time Re ceived Time Location / / Volume Laterality 06/30/2019 1:35 PM SANITATION DIRECTOR Impressions 06/30/2019 1:56 PM SANITATION DIRECTOR COMPARISON: ??Right hand films dated 02/19/2017. IMPRESSION: Bilateral osteoarthritis, le ft greater than right. Right hand: There is scattered joint spa ce loss affecting the interphalangeal joints. Significant hypertrophic changes are noted at the DIP joint of the second finger and the IP joint of the thumb. Ther e is also significant narrowing of the t riscaphe joint in the carpus and the first through third metacarpal or phalangeal joints. Degenerative changes have progressed since the prior study. There are no acute fractures. No obvious erosive change. Left hand: Findings on the left are emmanuel lar to those on the right with scattered degenerative joint disease affecting the interphalangeal joints and metacarpophalangeal joints with significant hypertrop hic changes at the DIP joints of the sec ond through fourth fingers and IP joint of the thumb. There is also significant narrowing of the triscaphe and first carpometacarpal joints of the carpus. No acute fractures. No obvious erosive change. Procedure Note Jody Arce MD - 06/30/2019Formattin g of this note might be different from the original. IMPRESSION COMPARISON: Right hand films dated 02/19. IMPRESSION: Bilateral osteoarthritis, le ft greater than right. Right hand: There is scattered joint spa ce loss affecting the interphalangeal joints. Significant hypertrophic changes are noted at the DIP joint of the second finger and the IP joint of the thumb. There is also significant narrowing of the trisca phe joint in the carpus and the first through third metacarpal or phalangeal joints. Degenerative changes have progressed since the prior study. There are no acute fractures. No obvious erosive change. Left hand: Findings on the left are emmanuel lar to those on the right with scattered degenerative joint disease affecting the interphalangeal joints and metacarpophalangeal joints with significant hypertrophic changes at the DIP joints of the second through fou rth fingers and IP joint of the thumb. There is also significant narrowing of the triscaphe and first carpometacarpal joints of the carpus. No acute fractures. No obvious erosive change. Carol COLBERT GD documented in this encounter Visit Diagnoses Diagnosis HLA B27 (HLA B27 positive) Genetic susceptibility to other disease Bilateral hand pain Pain in limb HLA B27 (HLA B27 positive) Genetic susceptibility to other disease Bilateral hand pain Pain in limb documented in this encounter Care Teams Leasing Assistant Relationship Specialty Start Date End Date Marta Hicks MD PCP - General Family Practice 01/03/17 documented as of this encounter
--- OUTSIDE RECORDS SUMMARY | 2022-06-14 08:09 | XMS_ITS | Encounter Summary ---
:1955 Author Organization [facility] Address [address], [place] [address] Care Team Providers Name Role Phone Marta Hicks MD Primary Care Provider Unavailable Reason for Visit Reason Comments Prior Authorization For Medication Encounter Details Date Type Department Care Team Description 07/05/2019 Telephone [place] Carol Herrmann, Prior Auth orization For Rheumatology PA-C Medication [id number] [employer] [address] [place] [address] [facility] [phone] [place] [address] (Wo rk) Social History Tobacco Use Types Packs/Day Years Used Date Smoking Tobacco: Every Day Cigarettes 0.5 Smokeless Tobacco: Never Alcohol Use Standard Drinks/Week Comments Not Currently 0 (1 standard drink = 0.6 oz pure alcoho l) Sex Assigned at Date Recorded Not on file documented as of this encounter Nursing Notes Ceci Turcios LPN - 07/06/2019 2:52 PM CST Celebrex PA sent to [facility] 07/06/19. Approved 06/06/19-07/05/20. Auth #[id number]. Updated pharmacy. LM on patient's voicemail with update as well. 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 Please address. VERY AUDITOR documented in this encounter Plan of Treatment Upcoming Encounters Date Type Specialty Care Team Description 04/23/2023 Appointment Rheumatology Arun Tate M D [address] [place] [address] (Wo rk) documented as of this encounter Visit Diagnoses Not on filedocumented in this encounter Care Teams Profile Grinder Technician Relationship Specialty Start Date End Date Marta Hicks MD PCP - General Family Practice 01/03/17 documented as of this encounter
--- OUTSIDE RECORDS SUMMARY | 2022-06-14 08:09 | XMS_ITS | Encounter Summary ---
:1955 Author Organization [facility] Address [address], [place] [address] Care Team Providers Name Role Phone Marta Hicks MD Primary Care Provider Unavailable Reason for Referral Procedure/Equipment (Routine) - Incomplete Specialty Diagnoses / Procedures Referred By Contact Refer red To Contact Diagnoses Multiple joint pain Carol Herrmann PA-C Procedures XR Shoulder Rt 2+ Views [address] [place], [place] [address] Referral ID Status Reason Start Date Expiration Date Visits V isits Requested Authorized [id number] Incomplete 06/30/2019 09/28/[address] [facility] Procedure/Equipment (Routine) - Incomplete Specialty Diagnoses / Procedures Referred By Contact Refer red To Contact Diagnoses HLA B27 (HLA B27 positive) Psoriasis Bilateral hand pain Carol Herrmann PA-C Procedures MR Hand Rt W/WO IV Cont [address] [place], [place] [address] Referral ID Status Reason Start Date Expiration Date Visits V isits Requested Authorized [id number] Incomplete 06/30/2019 09/28/[address] [facility] Procedure/Equipment (Routine) - Incomplete Specialty Diagnoses / Procedures Referred By Contact Refer red To Contact Diagnoses HLA B27 (HLA B27 positive) Bilateral hand pain Carol Herrmann PA-C Procedures XR Hand Lt 3+ Views [address] [place], [place] [address] Referral ID Status Reason Start Date Expiration Date Visits V isits Requested Authorized [id number] Incomplete 06/30/2019 09/28/[address] [facility] Procedure/Equipment (Routine) - Incomplete Specialty Diagnoses / Procedures Referred By Contact Refer red To Contact Diagnoses HLA B27 (HLA B27 positive) Bilateral hand pain Carol Herrmann PA-C Procedures XR Hand Rt 3+ Views [address] [employer] [place], [place] [address] Referral ID Status Reason Start Date Expiration Date Visits V isiradha Requested Authorized [id number] Incomplete 06/30/2019 09/28/[address] [facility] Reason for Visit Reason Comments Follow-up Encounter Details Date Type Department Care Team Description 06/30/2019 Office Visit Carol Mays, HLA B27 (H LA B27 positive) (Primary Dx); Rheumatology JUAN MANUEL Psoriasis; [phone] Bilateral beaulieu d pain; [address] [employer] Multiple joint pain; [place], [place] Polyarti cular osteoarthritis; [id number] Status post total left knee replacement; [phone] Gastroesophagea l reflux disease without esophagitis; (Work) Sensation of feeling hot; [phone] Cold intoleranc e; (Fax) salvage determiner curre nt use of non-steroidal anti-inflammatories (NSAID) [...] Sign Reading Time Taken Comments Blood Pressure 152/68 06/30/2019 12:02 PM DIRECT MAIL MARKETER Pulse 96 06/30/2019 12:02 PM DIRECT MAIL MARKETER Temperature - - Respiratory Rate - - Oxygen Saturation - - Inhaled Oxygen Concentration - - Weight 98.9 kg (218 lb) 06/30/2019 12:02 PM DIRECT MAIL MARKETER Height - - Body Mass Index 36.77 02/19/2017 10:16 AM CDT documented in this encounter Patient Instructions Patient InstructionsCarol Herrmann PA-C - 06/30/2019 12:15 PM CST 1. Celebrex 100 mg twice daily with food -No additional NSAIDs -You can take tylenol arthritis 1-2 tablets every 8 hours -Max dose is 4000 mg/day 2. We will update hand x-rays, right shoulder x-ray 3. Labs today 4. I will contact you with the results 5. Schedule the MRI 6. Follow up in [address] [facility]IL [facility] documented in this encounter Progress Notes Carol Herrmann PA-C - 06/30/2019 12:15 PM CST Rheumatology Clinic Note Encounter Date: [...] may eventually need those replaced, follows with [facility] for this. She has a history of [...] (L3-5) surgery with Dr. Salazar at [facility] for spinal stenosis about a [...] sleeping. Social History: . 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 Smoker. Minimal alcohol use. Medications: Updated in EMR but notable for: To be started on Celebrex 100 mg b.i.d., tylenol arthritis p.r.n. Patient Active Problem List Diagnosis Date Noted ??? salvage determiner current use of non-steroidal anti-inflammatories (NSAID) 03/26/2017 [...] does have a history of a positive HLA-B27 and psoriasis but no confirmed definate diagnosis of psoriatic arthritis. Psoriasis is minimal, no inflammatory eye/bowel/back symptoms. She has mixed inflammatory and noninflammatory joint features on history and exam and it is difficult to know if the starting gate driver of her joint pain is inflammatory [...] normal. Kidney and liver function tests have b een normal. I think additional evaluation is clinically [...] approach, all questions answered. Carol Herrmann PA-C CT MAIL MARKETER documented in this encounter Plan of Treatment Upcoming Encounters Date Type Specialty Care Team Description 04/23/2023 Appointment Rheumatology Arun Tate M D [address] [facility] [address] (Wo rk) documented as of this encounter Results MR Hand Rt W/WO IV Cont (07/08/2019 2:48 PM DIRECT MAIL MARKETER) Anatomical Region Laterality Modality Upper Extremity, Hand, Wrist, Skeletal Right M agnetic Resonance Specimen (Source) Anatomical Collection Method Collection Time Re ceived Time Location / / Volume Laterality 07/08/2019 2:02 PM DIRECT MAIL MARKETER Impressions 07/08/2019 3:02 PM DIRECT MAIL MARKETER TECHNIQUE: MRI of the right hand was performed before and following the uncomplicated administration of 10 mL Gadavist intravenously. COMPARISON: None. FINDINGS: Marked synovitis in the region of the ST T joint. Milder synovitis at the first metacarpophalangeal, first interphalangeal, second through fifth metatarsophalangeal joints, and at the third through fifth proximal interphalangeal joints. Very m ild synovitis at the fifth distal interphalangeal joint. Scattered suspected enhancing osseous er osions identified throughout the hand and wrist. For example, a 0.6 x 0.4 cm enhancing osseous erosion is identified at the radial aspect of the distal scaphoid p ole. A 0.4 cm enhancing osseous erosion is identified at the radial aspect of the third metacarpal base. Osteoarthritic degenerative changes are identified throughout the hand and wrist. For example, advanced osteoarthritic degenerative changes are identified at the second distal interphalangeal joint. Mul tiple interphalangeal joints demonstrate gull-wing morphology, suspicious for erosive osteoarthritis. Advanced osteoarthritic degenerative changes are identified at the first interphalangeal joint, wher e prominent mildly enhancing 0.7 x 0.5 c m intraosseous ganglion cyst formation is identified within the first proximal phalanx head and neck. Smaller intraosseous ganglion cysts are identified throughou t the hand and wrist. For example, a mul tilobulated ganglion cyst measuring 0.9 x 0.7 cm is identified within the distal aspect of the capitate. No significant extensor or flexor tenosynovitis. No high- grade or full-thickness extensor or flex or tendon tearing identified. No acute fracture identified. IMPRESSION: 1. Findings suspicious for inflammatory arthropathy, including multi-joint synovitis and scattered foci of probable enhancing osseous erosions throughout the hand and wrist. 2. Osteoarthritic degenerative changes t hroughout the hand and wrist also identified, including gull-wing morphology of multiple interphalangeal joints, suspicious for erosive osteoarthritis. Procedure Note Rajan Clark MD - 07/08/2019Format ting of this note might be different from the original. IMPRESSION TECHNIQUE: MRI of the right hand was per formed before and following the uncomplicated administration of 10 mL Gadavist intravenously. COMPARISON: None. FINDINGS: Marked synovitis in the region of the ST T joint. Milder synovitis at the first metacarpophalangeal, first interphalangeal, second through fifth metatarsophalangeal joints, and at the third through fifth proximal interphalangeal joints. Very mild synovi tis at the fifth distal interphalangeal joint. Scattered suspected enhancing osseous er osions identified throughout the hand and wrist. For example, a 0.6 x 0.4 cm enhancing osseous erosion is identified at the radial aspect of the distal scaphoid pole. A 0.4 cm enhancing osseous erosion is identified at the radial aspect of the third metacarpal base. Osteoarthritic degenerative changes are identified throughout the hand and wrist. For example, advanced osteoarthritic degenerative changes are identified at the second distal interphalangeal joint. Multiple interphalangeal joints demonstrate gull- wing morphology, suspicious for erosive osteoarthritis. Advanced osteoarthritic degenerative changes are identified at the first interphalangeal joint, where prominent mildly enhancing 0.7 x 0.5 cm intraosseous gang lion cyst formation is identified within the first proximal phalanx head and neck. Smaller intraosseous ganglion cysts are identified throughout the hand and wrist. For example, a multilobulated ganglion cyst measuring 0.9 x 0.7 cm is identified within the distal aspect of the capitate. No significant extensor or flexor tenosynovitis. No high-grade or full-thickness extensor or flexor tendon tearing identified. No acute fracture id entified. IMPRESSION: 1. Findings suspicious for inflammatory arthropathy, including multi-joint synovitis and scattered foci of probable enhancing osseous erosions throughout the hand and wrist. 2. Osteoarthritic degenerative changes t hroughout the hand and wrist also identified, including gull-wing morphology of multiple interphalangeal joints, suspicious for erosive osteoarthritis. Carol Herrmann PA-C RAD MRI TSH with Free T4 (if TSH Abnormal) (06/30/2019 1:47 PM DIRECT MAIL MARKETER) P athologist Signature TSH, Reflex 1.78 0.30 - 4.50 06/30/2019 [facility] uIU/mL 7:01 PM DIRECT MAIL MARKETER LABORATORY Specimen Anatomical Collection Method / Collection Time Recei carolina Time (Source) Location / Volume Laterality Blood Venipuncture / 06/30/2019 1:47 06/30/2019 1:47 Unknown PM DIRECT MAIL MARKETER PM DIRECT MAIL MARKETER Narrative [facility] - 06/30/2019 7:01 P M DIRECT MAIL MARKETER Lab will automatically reflex to Free T4 when TSH results are <0.30 uIU/mL or >4.50 mIU/mL. Carol Herrmann PA-C LAB_1 Performing Organization Address City/State/ZIP Code Phon e Number [facility] [address] [place] [address] ESR - Sedimentation Rate (06/30/2019 1:47 PM DIRECT MAIL MARKETER) [facility] Method Time Signature Sedimentation Rate 12 0 - 20 06/30/2019 [place] mm/hr 2:24 PM DIRECT MAIL MARK[facility] LABORATORY Specimen Anatomical Collection Method / Collection Time Recei carolina Time (Source) Location / Volume Laterality Blood Venipuncture / 06/30/2019 1:47 06/30/2019 1:47 Unknown PM DIRECT MAIL MARKETER PM DIRECT MAIL MARKETER Carol Mendezmeme [facility] LAB_1 Performing Organization Address City/State/ZIP Code Phon e Number [facility] [id number] [place] [address] CRP - C Reactive Protein (06/30/2019 1:47 PM DIRECT MAIL MARKETER) P athologist Signature C-Reactive <0.5 0.0 - 0.7 06/30/2019 [facility] Protein mg/dL 2:42 PM DIRECT [facility]IL MARK[facility] LABORATORY Specimen Anatomical Collection Method / Collection Time Recei carolina Time (Source) Location / Volume Laterality Blood Venipuncture / 06/30/2019 1:47 06/30/2019 1:47 Unknown PM DIRECT MAIL MARKETER PM DIRECT MAIL MARKETER Carol Mendezmeme [facility] LAB_1 Performing Organization Address [facility]/ZIP Code Phon e Number [facility] [id number] [place] [address] XR Hand Lt 3+ Views (06/30/2019 1:43 PM DIRECT MAIL MARKETER) Anatomical Region Laterality Modality Upper Extremity, Hand Digital Radiograph y Specimen (Source) Anatomical Collection Method Collection Time Re ceived Time Location / / Volume Laterality 06/30/2019 1:39 PM DIRECT MAIL MARKETER Impressions 06/30/2019 1:56 PM DIRECT MAIL MARKETER COMPARISON: ??Right hand films dated 02/19/2017. IMPRESSION: [...] Hand Rt 3+ Views (06/30/2019 1:39 PM DIRECT MAIL MARKETER) Anatomical Region Laterality Modality Upper Extremity, Hand Digital Radiograph y Specimen (Source) Anatomical Collection Method Collection Time Re ceived Time Location / / Volume Laterality 06/30/2019 1:35 PM DIRECT MAIL MARKETER Impressions 06/30/2019 1:56 PM DIRECT MAIL MARKETER COMPARISON: ??Right hand films dated 02/19/2017. IMPRESSION: [...] change. Carol Herrmann PA-C RAD GD XR Shoulder Rt 2+ Views (06/30/2019 1:35 PM DIRECT MAIL MARKETER) Anatomical Region Laterality Modality Upper Extremity, Shoulder Digital Radiog michelle Specimen (Source) Anatomical Collection Method Collection Time Re ceived Time Location / / Volume Laterality 06/30/2019 1:29 PM DIRECT MAIL MARKETER Impressions 06/30/2019 1:58 PM DIRECT MAIL MARKETER COMPARISON: ??None. FINDINGS: ??Bony structures appear intac t. There is narrowing of the glenohumeral joint with significant spurring from the inferomedial aspect of the humeral head and glenoid rim. Degenerative change is also noted at the acromioclavicular raghu nt. There is no dislocation or other acute finding. Procedure Note Jody Arce MD - 06/30/2019Formattin g of this note might be different from the original. IMPRESSION COMPARISON: None. FINDINGS: Bony structures appear intact. There is narrowing of the glenohumeral joint with significant spurring from the inferomedial aspect of the humeral head and glenoid rim. Degenerative change is also noted at the acromioclavicular joint. There is no dislocation or other acute finding. Carol TANNER documented in this encounter Visit Diagnoses Diagnosis HLA B27 (HLA B27 positive) - Primary Genetic susceptibility to other disease Psoriasis Other psoriasis Bilateral hand pain Pain in limb Multiple joint pain Pain in joint, multiple sites Polyarticular osteoarthritis Generalized osteoarthrosis, unspecified site Status post total left knee replacement Gastroesophageal reflux disease without esophagitis Esophageal reflux Sensation of feeling hot Other general symptoms Cold intolerance Other general symptoms care home current use of non-steroidal a nti-inflammatories (NSAID) Encounter for long-term (current) use of non-steroidal anti-inflammatories HLA B27 (HLA B27 positive) Genetic susceptibility to other disease Bilateral hand pain Pain in limb HLA B27 (HLA B27 positive) Genetic susceptibility to other disease Bilateral hand pain Pain in limb Multiple joint pain Pain in joint, multiple sites HLA B27 (HLA B27 positive) Genetic susceptibility to other disease Psoriasis Other psoriasis Bilateral hand pain Pain in limb documented in this encounter Care Teams Referral Management Liaison Relationship Specialty Start Date End Date Marta Hicks MD PCP - General Family Practice 01/03/17 documented as of this encounter
--- OUTSIDE RECORDS SUMMARY | 2022-06-14 08:09 | XMS_ITS | Encounter Summary ---
:1955 Author Organization [facility] Address [address] [place] [address] Care Team Providers Name Role Phone Marta Hicks MD Primary Care Provider Unavailable Encounter Details Date Type Department Care Team Description 02/19/2017 Lab Visit [facility] Multiple joint pain [address] [place] [address] Social History Tobacco Use Types Packs/Day Years Used Date Smoking Tobacco: Every Day Cigarettes 0.5 Smokeless Tobacco: Never Sex Assigned at Date Recorded Not on file documented as of this encounter Plan of Treatment Upcoming Encounters Date Type Specialty Care Team Description 04/23/2023 Appointment Rheumatology Arun Tate M D [address] Shayna [place]ONILLA [address] (Wo rk) documented as of this encounter Procedures Procedure Name Priority Date/Time Associated Comments Diagnosis CREATININE / GFR Routine 02/19/2017 11:33 Multiple joint pain Results for this AM CDT procedure are i n the results section. ANTI-CCP AB Routine 02/19/2017 11:33 Multiple joint pain Resu lts for this AM CDT procedure are i n the results section. COMPLETE BLOOD Routine 02/19/2017 11:33 Multiple joint pain Re sults for this COUNT-W/DIFF AM CDT procedure are i n the results section. DIFFERENTIAL Routine 02/19/2017 11:33 Results for this AM CDT procedure are i n the results section. RHEUMATOID FACTOR, Routine 02/19/2017 11:33 Multiple joint ashley n Results for this QUANT AM CDT procedure are i n the results section. HLA B27 Routine 02/19/2017 11:33 Multiple joint pain Resu lts for this AM CDT procedure are i n the results section. FERRITIN Routine 02/19/2017 11:33 Multiple joint pain Resu lts for this AM CDT procedure are i n the results section. C-REACTIVE PROTEIN Routine 02/19/2017 11:33 Multiple joint ashley n Results for this AM CDT procedure are i n the results section. AST Routine 02/19/2017 11:33 Multiple joint pain Resu lts for this AM CDT procedure are i n the results section. IRON PROFILE Routine 02/19/2017 11:33 Multiple joint pain Resu lts for this (IRON,TIBC,%SAT.(CALC AM CDT proced ure are in )) the results section. CALCIUM Routine 02/19/2017 11:33 Multiple joint pain Resu lts for this AM CDT procedure are i n the results section. ESR Routine 02/19/2017 11:33 Multiple joint pain Resu lts for this AM CDT procedure are i n the results section. documented in this encounter Results Differential (02/19/2017 11:33 AM CDT) athologist Signature Absolute 2.6 1.8 - 8.0 PN SOFT Neutrophils k/cmm Absolute 3.1 1.1 - 4.0 PN SOFT Lymphocytes k/cmm Absolute 0.7 0.2 - 0.8 PN SOFT Monocytes k/cmm Absolute 0.2 0.0 - 0.5 PN SOFT Eosinophils k/cmm Absolute 0.1 0.0 - 0.2 PN SOFT Basophils k/cmm Immature 0.3 0.0 - 0.5 PN SOFT Granulocytes % Specimen Anatomical Collection Method Collection Time Receive d Time (Source) Location / / Volume Laterality 02/19/2017 11:33 02/19/2017 AM CDT 11:33 AM CDT Narrative PN SOFT - 02/19/2017 11:41 AM CDT Performed at [facility], [address] [place] [address] CLIA number [id number] Arun Tate MD LAB_1 Performing Organization Address City/State/ZIP Code Phon e Number PN SOFT [address] [place] [address] [phone] REKHA - Ferritin (02/19/2017 11:33 AM CDT) athologist Signature Ferritin Serum 43 9 - 204 PN SOFT ng/mL Specimen Anatomical Collection Method Collection Time Receive d Time (Source) Location / / Volume Laterality 02/19/2017 11:33 02/19/2017 3:31 AM CDT PM CDT Narrative PN SOFT - 02/19/2017 4:28 PM CDT Performed at [facility], [facility] [place] [address] CLIA number [id number] Arun Tate MD LAB_1 Performing Organization Address City/[facility] Phon e Number PN SOFT [address] [place] [address] Total Iron and Iron Binding Capacity (02/19/2017 11:33 AM CDT) athologist Signature Iron, Serum 90 50 - 170 PN SOFT ug/dL Transferrin 284 180 - 382 PN SOFT mg/dL Iron Binding 355 250 - 450 PN SOFT Capacity, ug/dL Calculated Iron Saturation 25 20 - 55 % PN SOFT Specimen Anatomical Collection Method Collection Time Receive d Time (Source) Location / / Volume Laterality 02/19/2017 11:33 02/19/2017 3:31 AM CDT PM CDT Narrative PN SOFT - 02/19/2017 4:45 PM CDT Performed at [facility], [facility] [place] [address] CLIA number [id number] Arun Tate MD LAB_1 Performing Organization Address [facility] Phon e Number PN SOFT [address] [place] [address] (ABNORMAL) CA - Calcium (02/19/2017 11:33 AM CDT) athologist Signature Calcium 10.3 (H) 8.4 - 10.2 PN SOFT mg/dL Specimen Anatomical Collection Method Collection Time Receive d Time (Source) Location / / Volume Laterality 02/19/2017 11:33 02/19/2017 AM CDT 11:33 AM CDT Narrative PN SOFT - 02/19/2017 12:40 PM CDT Performed at [facility], [address] [place] [address] CLIA number [id number] Arun Tate MD LAB_1 Performing Organization Address City/[facility]/ZIP Code Phon e Number PN SOFT [address] [place] [address] RHF - Rheumatoid Factor (02/19/2017 11:33 AM CDT) athologist Signature Rheumatoid <15 0 - 30 PN SOFT Factor IU/mL Specimen Anatomical Collection Method Collection Time Receive d Time (Source) Location / / Volume Laterality 02/19/2017 11:33 02/19/2017 3:29 AM CDT PM CDT Narrative PN SOFT - 02/19/2017 4:07 PM CDT Performed at [facility], [address] [place] [address] CLIA number [id number] Arun Tate MD LAB_1 Performing Organization Address [facility] Phon e Number PN SOFT [address] [place] [address] CCPIG - Cyclic Citrullinated Peptide AB (02/19/2017 11:33 AM CDT) Analysis Performed At [facility] logist Time Signature CYCLIC 0.7 0.0 - 7.0 PN SOFT CITRULLINATED IU/mL PEPTIDEAB Comment: Reference Range: <7 Negative, 7 - 10 Equivocal, >10 Posit silvestre Specimen Anatomical Collection Method Collection Time Receive d Time (Source) Location / / Volume Laterality 02/19/2017 11:33 02/19/2017 3:30 AM CDT PM CDT Narrative PN SOFT - 02/21/2017 12:08 PM CDT Performed at [facility], [address] [place] [address] CLIA number [id number] Arun Tate MD LAB_1 Performing Organization Address [facility] Phon e Number PN SOFT [address] [place] [address] (ABNORMAL) HLA B27 (02/19/2017 11:33 AM CDT) athologist Signature HLA B27 Positive (A) Negative PN SOFT Comment: CLIA Number [id number] HLA B27 Interpretation SEE BELOW PN SOFT Comment: HLA-B27 antigen is present in a subset o f the normal population. The presence of HLA B 27 is associated with ankylosing spondylitis r elated spondylarthropathies, juvenile rheumatoi d arthritis, Claudia syndrome, and anterior uveitus. The presence of HLA-B27 by itself is not diagnostic of these disorders but must be correlate d with additional clinical findings. This test was developed and the performance characteri stics were determined by [facility] [place]. It has not been cleared or approved by [facility] [place]. Food and Drug Administration. The FDA juarez s determined that such clearance or approv al is not necessary. Performed at [facility] , [address] [place] [address] CLIA Number [id number] Specimen Anatomical Collection Method Collection Time Receive d Time (Source) Location / / Volume Laterality 02/19/2017 11:33 02/19/2017 3:27 AM CDT PM CDT Arun Tate MD LAB_1 Performing Organization Address City/[facility] Code Phon e Number PN SOFT [address] [place] [address] ESR - Sedimentation Rate (02/19/2017 11:33 AM CDT) Analysis Performed At Patho logist Time Signature Sedimentation Rate 8 0 - 20 PN SOFT mm/hr Specimen Anatomical Collection Method Collection Time Receive d Time (Source) Location / / Volume Laterality 02/19/2017 11:33 02/19/2017 AM CDT 11:33 AM CDT Narrative PN SOFT - 02/19/2017 12:16 PM CDT Performed at [facility], [address] [place] [address] CLIA number [id number] Arun Tate MD LAB_1 Performing Organization Address City/[facility] Phon e Number PN SOFT [address] [place] [address] CRP - C Reactive Protein (02/19/2017 11:33 AM CDT) P athologist Signature CRP <0.5 0.0 - 0.5 PN SOFT mg/dL Specimen Anatomical Collection Method Collection Time Receive d Time (Source) Location / / Volume Laterality 02/19/2017 11:33 02/19/2017 AM CDT 11:33 AM CDT Narrative PN SOFT - 02/19/2017 12:40 PM CDT Performed at [facility], [address] [place] [address] CLIA number [id number] Arun Tate MD LAB_1 Performing Organization Address [facility] Phon e Number PN SOFT [address] [place] [address] [phone] CBC - Complete Blood Count W/Diff (02/19/2017 11:33 AM CDT) P athologist Signature White Blood Cell 6.7 3.8 - 11.0 PN SOFT Count k/cmm Red Blood Cell 4.42 3.70 - PN SOFT Count 5.20 m/cmm Hemoglobin 14.2 11.8 - PN SOFT 15.5 g/dL Hematocrit 41.2 35.0 - PN SOFT 46.0 % Mean Corpuscular 93.2 80.0 - PN SOFT Volume 100.0 fL RDW 11.8 11.0 - PN SOFT 15.0 % Platelet Count 233 140 - 450 PN SOFT k/cmm Specimen Anatomical Collection Method Collection Time Receive d Time (Source) Location / / Volume Laterality 02/19/2017 11:33 02/19/2017 AM CDT 11:33 AM CDT Narrative PN SOFT - 02/19/2017 11:41 AM CDT Performed at [facility], [address] [place] [address] CLIA number [id number] Arun Tate MD LAB_1 Performing Organization Address [facility] Phon e Number PN SOFT [address] [place] [address] [phone] AST - Aspartate Aminotransferase (02/19/2017 11:33 AM CDT) Patholo gist Method Time Signature Aspartate 21 10 - 40 PN SOFT Aminotransferase U/L Specimen Anatomical Collection Method Collection Time Receive d Time (Source) Location / / Volume Laterality 02/19/2017 11:33 02/19/2017 AM CDT 11:33 AM CDT Narrative PN SOFT - 02/19/2017 12:40 PM CDT Performed at [facility], [address] [place] [address] CLIA number [id number] Arun Tate MD LAB_1 Performing Organization Address City/[facility]/ZIP Code Phon e Number PN SOFT [address] [place] [address] CREAT - Creatinine (02/19/2017 11:33 AM CDT) athologist Signature Creatinine Serum 0.70 0.55 - PN SOFT 1.02 mg/dL Est GFR >60 >60 PN SOFT Am mL/min/1.7 3m2 Est GFR Non-Afr >60 >60 PN SOFT Am mL/min/1.7 3m2 Comment: Normal>60, moderate decrease 30 - 59, se charlie decrease 15 - 29, renal failure <15 mL/min/1.73 m2 NOTE: ??Choose the eGFR result above maria de jesus ropriate for the race of the patient. Specimen Anatomical Collection Method Collection Time Receive d Time (Source) Location / / Volume Laterality 02/19/2017 11:33 02/19/2017 AM CDT 11:33 AM CDT Narrative PN SOFT - 02/19/2017 12:40 PM CDT Performed at [facility], [address] [place] [address] CLIA number [id number] Arun Tate MD LAB_1 Performing Organization Address City/State/ZIP Code Phon e Number PN SOFT [address] [place] [address] documented in this encounter Visit Diagnoses Diagnosis Multiple joint pain Pain in joint, multiple sites documented in this encounter Care Teams Double Cutter Relationship Specialty Start Date End Date Marta Hicks MD PCP - General Family Practice 01/03/17 documented as of this encounter
--- OUTSIDE RECORDS SUMMARY | 2022-06-14 08:09 | XMS_ITS | Encounter Summary ---
:1955 Author Organization [facility] Address [address], [place] [address] Care Team Providers Name Role Phone Marta Hicks MD Primary Care Provider Unavailable Reason for Visit Reason Comments Follow-up Encounter Details Date Type Department Care Team Description 03/26/2017 Office Visit Arun Brown M D Multiple joint pain (Primary Dx); Rheumatology [address] [facility] Primary osteoarthritis of imani th hands; [address] Primary osteoarthritis of right hip; [place] [address] [place], [place] Primary osteoarthritis of ri ght knee; [phone] [address] retirement current use of non-steroidal a nti-inflammatories (NSAID); [phone] HLA B27 (HLA B2 7 positive); (Work) Psoriasis Social History Tobacco Use Types Packs/Day Years Used Date Smoking Tobacco: Every Day Cigarettes 0.5 Smokeless Tobacco: Never Sex Assigned at Date Recorded Not on file documented as of this encounter Last Filed Vital Signs Vital Sign Reading Time Taken Comments Blood Pressure 128/61 03/26/2017 8:17 AM CDT Pulse 87 03/26/2017 8:17 AM CDT Temperature - - Respiratory Rate - - Oxygen Saturation - - Inhaled Oxygen Concentration - - Weight 101.2 kg (223 lb) 03/26/2017 8:17 AM CDT Height - - Body Mass Index 37.61 02/19/2017 10:16 AM CDT documented in this encounter Patient Instructions Patient InstructionsArun Tate MD - 03/26/2017 8:30 AM CDT I think the vast majority of the symptoms are osteoarthritis. Meloxicam is fine. Take with food. Omeprazole will help protect stomach. Would need some annual labs (blood counts, kidney). Bad joints can have injections. We'll keep in mind you have psoriasis and that can cause different joint inflammation, but meloxicamcan treat mild versions of that. Recheck in 1 year, sooner if problem. Thank you for enrolling in [facility]. Please follow the instructions below to securely access your online medical record. [facility] allows you to send messages to your doctor, view your test results, renewyour prescriptions, schedule appointments, and more. How Do I Sign Up? 1. In your Internet browser, go to [email or web address] 2. Click on the Enter activation code link under the New User? section. You will see the Activate your account! page. 3. Enter your activation code exactly as it appears below. You will not need to use this code after you???ve completed the sign-up process. If you do not sign up before the expiration date, you must request a new code. Activation Code: [email or web address] Expires: 04/25/2017 8:27 AM 4. Enter your last name and date of (mm/dd/yyyy) as indicated, then click Continue. You will be taken to the Let's set up your account page. 5. Create a username. This will be your [facility] login ID and cannot be changed, so think of one thatis secure and easy to remember. 6. Create a password. You can change your password at any time. 7. Enter your e-mail address. You will receive e-mail notification when new information is availablein [facility]. 8. Select your Security Questions and enter your answers. These can be used at a later time if you forget your password. 9. Check the box to accept the terms and conditions. Click Create your account. You can now view your medical record. Additional Information If you have questions, you can call [phone] to talk to our [facility] staff. Remember, [facility] is NOT to be used for urgent needs. For medical emergencies, dial 911. documented in this encounter Progress Notes Arun Tate MD - 03/26/2017 8:30 AM CDT RHEUMATOLOGY RECHECK This note was generated with voice activated policy writer typist software and may contain typographical and word substitution errors. CC: Follow-up osteoarthritis, history of psoriasis but at this point unlikely she has psoriatic arthritis HPI: I initially evaluated her February 19, 2017. She has known multifocal osteoarthritis including knees, hips, hands, status post left knee replacement. She has known pretty significant DJD in the right hip and right knee and may eventually need those replaced. She had some soreness of the right 2nd and3rd MCP joints with mild swelling. There was some concern she might have psoriatic arthritis. Clinically, the swelling was very subtle at best. I gave her some meloxicam 15 mg daily p.r.n. to try. She was already on omeprazole and I asked her to stop ibuprofen. Lab data showed slight elevation in serum calcium at 10.3, normal creatinine, normal CBC, normal sed rate at 8, undetectable CRP, negative rheumatoid factor and CCP but she did have positive HLA-B27, iron studies were normal. Right hand x-rayshowed definite osteoarthritic changes at the DIP joints, IP joint of the right thumb but there was also some slight narrowing of the 2nd and 3rd MCP joints without erosion or proliferative change. There were also marginal osteophytes at multiple PIP joints and the general picture is consistent with osteoarthritis. However, I did think if we saw more definite swelling we could get an MRI of the righthand or consider local cortisone injections 2nd and 3rd MCP joints. She returns today for follow-up. She feels that the meloxicam has been quite helpful in terms of discomfort in her hands, less puffiness in her hands. Images were reviewed which are as noted above but looked mostly compatible with osteoarthritis. She is not having pain in the MCP joints today. She denies any side effects of the meloxicam. 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 ADR/ALLERGIES: Updated in EMR ROS: Review of systems form from today's visit was reviewed with the patient, placed into SDOC, and is negative except: Mild dyspnea with exertion. PAIN & RAPID3: In flowsheet if completed by patient. Level of pain is 4/10 OBJECTIVE: VS: Per flow sheet. General: NAD. Eyes: Externally clear. Musculoskeletal: All 4 limbs are examined. She has definite osteoarthritic changes of the hands withbony enlargement of DIP, PIP joints, IP joints of the thumbs, no synovitis at the MCP joints. There is moderately reduced range of motion of both hips worse on the right. ASSESSMENT: 1: Osteoarthritis hands, hips, knees 2: Tenderness right 2nd and 3rd MCP joints, mild cartilage wear at those joints 3: Positive HLA-B27, history of psoriasis, but at this point does not definitely have psoriatic arthritis 4: Slightly elevated serum calcium 10.3 PLAN: 1: I think the bulk of her symptoms at this point are from osteoarthritis. She seems much improved on meloxicam and will continue that 15 mg daily. She is already on Prilosec for stomach protection. 2: We discussed other interventions such as cortisone injections of symptomatic joints. She already follows with a sports medicine physician regarding her right hip and knee. 3: I discussed with her the this point I cannot say she has psoriatic arthritis. However, we will keep a watchful eye she does have HLA-B27 gene. 4: Slight elevation in serum calcium is noted. She was not taking calcium supplements but does have yogurt each morning. At some juncture, should be repeated probably through her primary care. 5: We have agreed on a follow-up visit in one year, sooner if necessary. documented in this encounter Plan of Treatment Upcoming Encounters Date Type Specialty Care Team Description 04/23/2023 Appointment Rheumatology Arun Tate M D [address] [facility] [place] [id number] (Wo rk) documented as of this encounter Visit Diagnoses Diagnosis Multiple joint pain - Primary Pain in joint, multiple sites Primary osteoarthritis of both hands Primary osteoarthritis of right hip Primary localized osteoarthrosis, pelvic region and thigh Primary osteoarthritis of right knee Primary localized osteoarthrosis, lower leg retirement current use of non-steroidal a nti-inflammatories (NSAID) Encounter for long-term (current) use of non-steroidal anti-inflammatories HLA B27 (HLA B27 positive) Genetic susceptibility to other disease Psoriasis Other psoriasis documented in this encounter Care Teams Retail Loss Prevention Specialist Relationship Specialty Start Date End Date Marta Hicks MD PCP - General Family Practice 01/03/17 documented as of this encounter
--- OUTSIDE RECORDS SUMMARY | 2022-06-14 08:09 | XMS_ITS | Encounter Summary ---
:1955 Author Organization [facility] Address [address] [address] Care Team Providers Name Role Phone Marta Hicks MD Primary Care Provider Unavailable Reason for Visit Procedure/Equipment (Routine) - Incomplete Specialty Diagnoses / Procedures Referred By Contact Refer red To Contact Diagnoses Multiple joint pain Arun Tate MD Procedures XR Hand Rt 3+ Views [address] [place], [place] [address] Referral ID Status Reason Start Date Expiration Date Visits V isits Requested Authorized [id number] Incomplete 02/19/2017 05/21/2018 1 1 Encounter Details Date Type Department Care Team Description 02/19/2017 Imaging [facility] Arun Tate MD Multiple joint pain [address] [place] [address] [facility] [phone] [place], [place] [id number] (Wo rk) Social History Tobacco Use Types Packs/Day Years Used Date Smoking Tobacco: Every Day Cigarettes 0.5 Smokeless Tobacco: Never Sex Assigned at Date Recorded Not on file documented as of this encounter Plan of Treatment Upcoming Encounters Date Type Specialty Care Team Description 04/23/2023 Appointment Rheumatology Arun Tate M D [address] [facility] N [id number] (Wo rk) documented as of this encounter Procedures Procedure Name Priority Date/Time Associated Diagnosis Comme nts XR HAND RT 3+ VIEWS Routine 02/19/2017 11:17 AM Multiple joint pain Results for this CDT procedure are i n the results section. documented in this encounter Results XR Hand Rt 3+ Views (02/19/2017 11:17 AM CDT) Anatomical Region Laterality Modality Upper Extremity, Hand Radio Fluoroscopy Specimen (Source) Anatomical Collection Method Collection Time Re ceived Time Location / / Volume Laterality 02/19/2017 11:07 AM CDT Narrative 02/19/2017 11:56 AM CDT COMPARISON: ??None. FINDINGS: ??No fracture or dislocation. Some degenerative changes ??marginal osteophyte formation at the second and third PIP and DIP joints, fifth PIP joint, and IP joint of the thumb. No bony destructive or erosive changes confirmed. Procedure Note Jarod Jansen MD - 02/19/2017Formatt ing of this note might be different from the original. COMPARISON: None. FINDINGS: No fracture or dislocation. So me degenerative changes marginal osteophyte formation at the second and third PIP and DIP joints, fifth PIP joint, and IP joint of the thumb. No bony destructive or erosive changes confirmed. Arun Tate MD RAD GD documented in this encounter Visit Diagnoses Diagnosis Multiple joint pain Pain in joint, multiple sites documented in this encounter Care Teams Appeals Board Referee Relationship Specialty Start Date End Date Marta Hicks MD PCP - General Family Practice 01/03/17 documented as of this encounter
--- OUTSIDE RECORDS SUMMARY | 2022-06-14 08:09 | XMS_ITS | Encounter Summary ---
:1955 Author Organization [facility] [employer] Address [address] [place] [address] Care Team Providers Name Role Phone Marta Hicks MD Primary Care Provider Unavailable Encounter Details Date Type Department Care Team Description 06/30/2019 Lab Visit [facility] HLA B27 (HLA B27 positive); [id number]; [place] [address] Multiple joint pain; [phone] Polyarticular o steoarthritis; Sensation of fe eling hot; Cold intoleranc e Social History Tobacco Use Types Packs/Day Years [...] 04/23/2023 Appointment Rheumatology Arun Tate M D [address] [facility] [address] [id number] (Wo rk) documented as of this encounter Procedures Procedure Name Priority Date/Time Associated Diagnosis Comme nts C-REACTIVE PROTEIN Routine 06/30/2019 1:47 PM HLA B27 (HLA B27 Results for this LIFEGUARD positive) procedure are in Psoriasis the results Multiple joint p ain section. Polyarticular osteoarthritis TSH, SENSITIVE Routine 06/30/2019 1:47 PM Multiple join t pain Results for this (WITH REFLEX) LIFEGUARD Sensation of feeling proced ure are in hot the results Cold intolerance section. ESR Routine 06/30/2019 1:47 PM HLA B27 (HLA B27 Resul ts for this LIFEGUARD positive) procedure are in Psoriasis the results Multiple joint p ain section. Polyarticular osteoarthritis documented in this encounter Results TSH with Free T4 (if TSH Abnormal) (06/30/2019 1:47 PM [facility]) athologist Signature TSH, Reflex 1.78 0.30 - 4.50 06/30/2019 [facility] uIU/mL 7:01 PM [facility] Specimen Anatomical Collection Method / Collection Time Recei carolina Time (Source) Location / Volume Laterality Blood Venipuncture / 06/30/2019 1:47 06/30/2019 1:47 Unknown PM [facility] PM [facility] Narrative [facility] - 06/30/2019 7:01 P M [facility] will automatically reflex to Free T4 when TSH results are <0.30 uIU/mL or >4.50 mIU/mL. Carol Herrmann PA-C LAB_1 Performing Organization Address City/[facility]/ZIP Code Phon e Number [facility] [address] [place] [address] ESR - Sedimentation Rate (06/30/2019 1:47 PM [facility]) [facility] Method Time Signature Sedimentation Rate 12 0 - 20 06/30/2019 CORNUCOPIA mm/hr 2:24 PM [facility] Specimen Anatomical Collection Method / Collection Time Recei carolina Time (Source) Location / Volume Laterality Blood Venipuncture / 06/30/2019 1:47 06/30/2019 1:47 Unknown PM [facility] PM [facility] Carol Herrmann PA-C LAB_1 Performing Organization Address [facility]/ZIP Code Phon e Number [facility] [address] [place], [place] [phone] CRP - C Reactive Protein (06/30/2019 1:47 PM [facility]) athologist Signature C-Reactive <0.5 0.0 - 0.7 06/30/2019 [place]NU[place] Protein mg/dL 2:42 PM [facility] Specimen Anatomical Collection Method / Collection Time Recei carolina Time (Source) Location / Volume Laterality Blood Venipuncture / 06/30/2019 1:47 06/30/2019 1:47 Unknown PM [facility] PM [facility] Carol Herrmann PA-C LAB_1 Performing Organization Address City/[facility]/ZIP Code Phon e Number [facility] [address] [place], [place] [phone] documented in this encounter Visit Diagnoses Diagnosis HLA B27 (HLA B27 positive) Genetic susceptibility to other disease Psoriasis Other psoriasis Multiple joint pain Pain in joint, multiple sites Polyarticular osteoarthritis Generalized osteoarthrosis, unspecified site Sensation of feeling hot Other general symptoms Cold intolerance Other general symptoms documented in this encounter Care Teams Highway Engineering Technician Relationship Specialty Start Date End Date Marta Hicks MD PCP - General Family Practice 01/03/17 documented as of this encounter
--- OUTSIDE RECORDS SUMMARY | 2022-06-14 08:09 | XMS_ITS | Encounter Summary ---
:1955 Author Organization [facility] Address [address], [place] [address] Care Team Providers Name Role Phone Marta Hicks MD Primary Care Provider Unavailable Reason for Visit Procedure/Equipment (Routine) - Incomplete Specialty Diagnoses / Procedures Referred By Contact Refer red To Contact Diagnoses Multiple joint pain Carol Herrmann PA-C Procedures XR Shoulder Rt 2+ Views [address] [place], [place] [address] Referral ID Status Reason Start Date Expiration Date Visits V isits Requested Authorized [id number] Incomplete 06/30/2019 09/28/2020 1 1 Encounter Details Date Type Department Care Team Description 06/30/2019 Ancillary [place] Carol Herrmann, Multiple j oint pain Procedure Radiology PA-C [address] [address] [phone] Social History Tobacco Use Types Packs/Day Years [...] Appointment Rheumatology Arun Tate M D [address] [facility] N [id number] (Wo rk) documented as of this encounter Procedures Procedure Name Priority Date/Time Associated Diagnosis Comme nts XR SHOULDER RT 2+ Routine 06/30/2019 1:35 PM Multiple joint pa in Results for this VIEWS SCIENCE INTERPRETER procedure are i n the results section. documented in this encounter Results XR Shoulder Rt 2+ Views (06/30/2019 1:35 PM SCIENCE INTERPRETER) Anatomical Region Laterality Modality Upper Extremity, Shoulder Digital Radiog michelle Specimen (Source) Anatomical Collection Method Collection Time Re ceived Time Location / / Volume Laterality 06/30/2019 1:29 PM SCIENCE INTERPRETER Impressions 06/30/2019 1:58 PM SCIENCE INTERPRETER COMPARISON: ??None. FINDINGS: ??Bony structures appear intac [...] no dislocation or other acute finding. Carol Herrmann PA-C RAD GD documented in this encounter Visit Diagnoses Diagnosis Multiple joint pain Pain in joint, multiple sites documented in this encounter Care Teams Adjunct Professor Of Law Relationship Specialty Start Date End Date Marta Hicks MD PCP - General Family Practice 01/03/17 documented as of this encounter
--- OUTSIDE RECORDS SUMMARY | 2022-06-14 08:09 | XMS_ITS | Encounter Summary ---
:1955 [address] [facility] Address [address], [place] [address] Care Team Providers Name Role Phone Marta Hicks MD Primary Care Provider Unavailable Reason for Visit Procedure/Equipment (Routine) - Incomplete Specialty Diagnoses / Procedures Referred By Contact Refer red To Contact Diagnoses HLA B27 (HLA B27 positive) Bilateral hand pain Carol Herrmann, PA-C Procedures XR Hand Rt 3+ Views [address] [place], [place] [address] Referral ID Status Reason Start Date Expiration Date Visits V isits Requested Authorized [id number] Incomplete 06/30/2019 09/28/2020 1 1 Encounter Details Date Type Department Care Team Description 06/30/2019 Ancillary [place] Carol Herrmann, HLA B27 (H LA B27 positive); Procedure Radiology PA-C Bilateral hand pain [address] [place] [address] [place] [address] [phone] Social History Tobacco Use Types Packs/Day Years [...] Appointment Rheumatology Arun Tate M D [address] [facility] N [address] (Wo rk) documented as of this encounter Procedures Procedure Name Priority Date/Time Associated Diagnosis Comme nts XR HAND RT 3+ VIEWS Routine 06/30/2019 1:39 PM HLA B27 (HLA B2 7 Results for this BINMAN positive) procedure are in Bilateral hand pain the resu lts section. documented in this encounter Results XR Hand Lt 3+ Views (06/30/2019 1:43 PM BINMAN) Anatomical Region Laterality Modality Upper Extremity, Hand Digital Radiograph y Specimen (Source) Anatomical Collection Method Collection Time Re ceived Time Location / / Volume Laterality 06/30/2019 1:39 PM BINMAN Impressions 06/30/2019 1:56 PM BINMAN COMPARISON: ??Right hand films dated 02/19/2017. IMPRESSION: [...] Left hand: Findings on the left are emmaunel lar to those on the right with [...] Hand Rt 3+ Views (06/30/2019 1:39 PM BINMAN) Anatomical Region Laterality Modality Upper Extremity, Hand Digital Radiograph y Specimen (Source) Anatomical Collection Method Collection Time Re ceived Time Location / / Volume Laterality 06/30/2019 1:35 PM BINMAN Impressions 06/30/2019 1:56 PM BINMAN COMPARISON: ??Right hand films dated 02/19/2017. IMPRESSION: [...] limb documented in this encounter Care Teams Director Of Cardiac Cath Lab Relationship Specialty Start Date End Date Marta Hicks MD PCP - General Family Practice 01/03/17 documented as of this encounter
--- OUTSIDE RECORDS SUMMARY | 2022-06-14 08:09 | XMS_ITS | Encounter Summary ---
:1955 [facility] Address [address], [place] [address] Care Team Providers Name Role Phone Marta Hicks MD Primary Care Provider Unavailable Reason for Referral Procedure/Equipment (Routine) - Incomplete Specialty Diagnoses / Procedures Referred By Contact Refer red To Contact Diagnoses Multiple joint pain Arun Tate MD Procedures XR Hand Rt 3+ Views [address] [place], [place] [address] Referral ID Status Reason Start Date Expiration Date Visits V isits Requested Authorized [id number] Incomplete 02/19/2017 05/21/2018 1 1 Reason for Visit Reason Comments CONSULT Encounter Details Date Type Department Care Team Description 02/19/2017 Initial Consult Arun Brown, Multiple j oint pain (Primary Dx); Rheumatology MD Primary osteoarthritis of both hands; [address] [address] Primary osteo arthritis of right hip; [facility] Primary osteoarthritis of right knee; [facility], Total knee replacement status, left; [address] [place] [address] Gastroesophageal reflux disease, esophag itis presence not specified [phone] Social History Tobacco Use Types Packs/Day Years Used Date Smoking Tobacco: Every Day Cigarettes 0.5 Smokeless Tobacco: Never Sex Assigned at Date Recorded Not on file documented as of this encounter Last Filed Vital Signs Vital Sign Reading Time Taken Comments Blood Pressure 136/56 02/19/2017 10:16 AM CDT Pulse 91 02/19/2017 10:16 AM CDT Temperature - - Respiratory Rate - - Oxygen Saturation - - Inhaled Oxygen Concentration - - Weight 105.7 kg (233 lb 1 oz) 02/19/2017 10:16 AM CDT Height 164 cm (5' 4.57) 02/19/2017 10:16 AM CDT Body Mass Index 39.31 02/19/2017 10:16 AM CDT documented in this encounter Patient Instructions Patient InstructionsArun Tate MD - 02/19/2017 10:30 AM CDT There is no doubt you have osteoarthritis - hands, knees, hips. I think 90+% of your pain (if not all of it) is from osteoarthritis. I'm not 100% convinced on the psoriatic arthritis diagnosis, but the big knuckle joints are a littleunusual, but not impossible for osteoarthritis. Trying to rule in or rule out psoriatic arthritis would require the followin. Blood work 2. Hand x-ray 3. Most conclusive would be MRI right hand with and without contrast Lets try meloxicam 15 mg once daily with food - don't take ibuprofen except perhaps rarely while on this. Can take tylenol with meloxicam up to 1000 mg three times daily. I'll send you a letter with lab and x-ray results and if we think MRI essential, we'll let you know. Recheck in 4-6 weeks for further discussion. Thank you for enrolling in [facility]. Please follow the instructions below to securely access your online medical record. [facility] allows you to send messages to your doctor, view your test results, renewyour prescriptions, schedule appointments, and more. How Do I Sign Up? 1. In your Internet browser, go to [email or web address] 2. Click on the Enter activation code link under the New User? section. You will see the Activate your account! page. 3. Enter your activation code exactly as it appears below. You will not need to use this code after you???ve completed the sign-up process. If you do not sign up before the expiration date, you must request a new code. Activation Code: [email or web address] Expires: 03/21/2017 11:02 AM 4. Enter your last name and date of (mm/dd/yyyy) as indicated, then click Continue. You will be taken to the Let's set up your account page. 5. Create a username. This will be your [facility] login ID and cannot be changed, so think of one thatis secure and easy to remember. 6. Create a password. You can change your password at any time. 7. Enter your e-mail address. You will receive e-mail notification when new information is availablein [facility]. 8. Select your Security Questions and enter your answers. These can be used at a later time if you forget your password. 9. Check the box to accept the terms and conditions. Click Create your account. You can now view your medical record. Additional Information If you have questions, you can call [phone] to talk to our [facility] staff. Remember, [facility] is NOT to be used for urgent needs. For medical emergencies, dial 911. documented in this encounter Progress Notes Arun Tate MD - 02/19/2017 10:30 AM CDT RHEUMATOLOGY NEW PATIENT NOTE This note was generated with voice activated protection agent software and may contain typographical and word substitution errors. CC: Patient is referred for arthritis HPI: She is a 61-year-old female. There been no other visits to this clinic. No internal records available. I was able to review some [facility] records using carrier everywhere. Glucose was 118, liver tests normal in 2013. Rheumatoid factor was negative in 2006. We reviewed her history in detail. She has known multifocal osteoarthritis including both knees, both hips and hands. She is status post left knee replacement and will need both her right knee and right hip eventually replaced. Furthermore, she has classic osteoarthritic changes in the hands especially at DIP and a few PIP joints. She has had some soreness at the right 2nd and 3rd MCP joints with mild swelling there. She reports about 7 years ago she saw a freight car cleaner [employer], I was not familiar with thename. That particular freight car cleaner [employer] felt she might have psoriatic arthritis and the patient states she was given 17 prescriptions and ultimately she decided to take none of those. She does take glucosamine/chondroitin. She has used occasional ibuprofen which does help. She statesthe pain in her hands is worse at the end of the day not at the beginning of the day. She is bothered by sharp pains in her right hip and right knee. She uses a salt water pool. She does a lot of typing at work and her right hand particular the 2nd and 3rd MCP tender bother her at the end of the day. She has bony enlargement at the 1st MTPs of her feet as well. She states she does have a history of psoriasis. She can get scaly patches such as over the dorsum of the hand and on her thigh and previously on her knee. Currently she has these treated with topicalsand there really was no visible psoriasis to review today. PMH: Osteoarthritis right knee, possible history of slight colitis, osteoarthritis right hip, prior intra-articular cortisone injections, question psoriatic arthritis ??, hyperlipidemia, reflux, hysterectomy, carpal tunnel release, septoplasty, total knee arthroplasty MEDS: Updated in EMR, notable for: Ranitidine, omeprazole, [place], I am giving her some meloxicam 15 mg daily p.r.n. ADRs: No drug allergies. FH: Positive for colon cancer, breast cancer, multiple family members have osteoarthritis, one has rheumatoid arthritis. 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 PAIN & RAPID3: In flowsheet if completed by patient. Level of pain is 8/10 OBJECTIVE: VS: Per flowsheet General: NAD. Eyes: Externally clear. Mouth: Moist mucous membranes. No ulcers. Lymph: No cervical or groin adenopathy. Chest: CTA. Heart: RRR, no M/R/G. Abdomen: Bowel sounds present, soft, nontender, no palpable HSM. Musculoskeletal: All 4 limbs examined. The joint exam was negative for synovitis, deformity, or instability with the exception of: She has classic Heberden nodes at a number of DIP joints and some mildbony enlargement at a few PIP joints and thumb IP joints. She is tender with subtle trace swelling right 2nd and 3rd MCP joints. Wrists elbows shoulders move normally. The right hip has reduced range of motion with some discomfort, right knee has some crepitation without swelling, there is a left kneereplacement. She has bony enlargement at the bilateral 1st MTP joints. Neurologic: Cutaneous: Spine: ASSESSMENT: 1: Definite osteoarthritis of the hands, hips and knees 2: Tenderness and mild swelling right 2nd and 3rd MCP joints may be atypical osteoarthritis versus psoriatic arthritis 3: History of psoriasis although no patches present today PLAN: 1: Long discussion with the patient. From her history and examination, I would say that at least 90%of her symptoms are related to osteoarthritis. She has clear osteoarthritis of the hands. There is some pain and enlargement of the right 2nd and 3rd MCP joints. Those would be somewhat atypical jointsfor osteoarthritis but not impossible. I am going to check a panel of lab work to include CBC AST creatinine inflammatory markers HLA-B27 rheumatoid serologies iron and calcium (the latter looking for secondary causes of CPPD arthropathy). We will get an x-ray of the right hand which I think will be helpful. 2: In the meantime, I am asking her to stop the ibuprofen and will try meloxicam 15 mg once daily with food. She is on omeprazole for stomach protection. 3: I will review the data acid comes in. If I feel it would be very beneficial to get an MRI of the right hand with contrast with attention to the MCP joints, I will order it and we will let her know to call and schedule it. Otherwise, we will just plan to see her back in 4-6 weeks. I will be in touchwith the lab and x-ray data in the meantime. Ultimately, she does know she will need her right hip and right knee replaced. 4: I think it may be reasonable in the future to consider local cortisone injection of the right 2ndand 3rd MCP joints. At this point, I see very little that would suggest she needs systemic immune modulating therapy. copy to Freddie Solitario MD, [facility] documented in this encounter Plan of Treatment Upcoming Encounters Date Type Specialty Care Team Description 04/23/2023 Appointment Rheumatology Arun Tate M D [address] [place] [address] (Wo rk) documented as of this encounter Results REKHA - Ferritin (02/19/2017 11:33 AM CDT) athologist Signature Ferritin Serum 43 9 - 204 PN SOFT ng/mL Specimen Anatomical Collection Method Collection Time Receive d Time (Source) Location / / Volume Laterality 02/19/2017 11:33 02/19/2017 3:31 AM CDT PM CDT Narrative PN SOFT - 02/19/2017 4:28 [place] [address] CLIA number [id number] Arun Tate MD LAB_1 Performing Organization Address [facility] Phon e Number PN SOFT [address] [place] [address] Total Iron and Iron Binding Capacity (02/19/2017 [...] - 02/19/2017 4:45 PM CDT Performed at [facility], [address] [place] [address] CLIA number [id number] Arun Tate MD LAB_1 Performing Organization Address [facility] Phon e Number PN SOFT [address] [place] [address] (ABNORMAL) CA - Calcium (02/19/2017 11:33 AM CDT) athologist Signature Calcium 10.3 (H) 8.4 - 10.2 PN SOFT mg/dL Specimen Anatomical Collection Method Collection Time Receive d Time (Source) Location / / Volume Laterality 02/19/2017 11:33 02/19/2017 AM CDT 11:33 AM CDT Narrative PN SOFT - 02/19/2017 12:40 PM CDT Performed at [facility], [address] [place] [address] CLIA number [id number] Arun Tate MD LAB_1 Performing Organization Address [facility] Phon e Number PN SOFT [address] [place] [address] RHF - Rheumatoid Factor (02/19/2017 11:33 AM CDT) P athologist Signature Rheumatoid <15 0 - 30 PN SOFT Factor IU/mL Specimen Anatomical Collection Method Collection Time Receive d Time (Source) Location / / Volume Laterality 02/19/2017 11:33 02/19/2017 3:29 AM CDT PM CDT Narrative PN SOFT - 02/19/2017 4:07 [place] [address] CLIA number [id number] Arun Tate MD LAB_1 Performing Organization Address [facility] Phon e Number PN SOFT [address] [place] [address] CCPIG - Cyclic Citrullinated Peptide AB (02/19/2017 11:33 AM CDT) Analysis Performed At [facility] logis Time Signature CYCLIC 0.7 0.0 - 7.0 PN SOFT CITRULLINATED IU/mL PEPTIDEAB Comment: Reference Range: <7 Negative, 7 - 10 Equivocal, >10 Posit silvestre Specimen Anatomical Collection Method Collection Time Receive d Time (Source) Location / / Volume Laterality 02/19/2017 11:33 02/19/2017 3:30 AM CDT PM CDT Narrative PN SOFT - 02/21/2017 12:08 PM CDT Performed at [facility], [address] [place] [address] CLIA number [id number] Arun Tate MD LAB_1 Performing Organization Address [facility] Phon e Number PN SOFT [address] [place] [address] (ABNORMAL) HLA B27 (02/19/2017 11:33 AM CDT) athologist Signature HLA B27 Positive (A) Negative PN SOFT Comment: CLIA Number [id number] HLA B27 Interpretation SEE BELOW PN SOFT [...] the performance characteri stics were determined by [facility] [place]. It has not been cleared or approved by [facility] [place].S. Food and Drug Administration. The FDA juarez s determined that such clearance or approv al is not necessary. Performed at [facility] , [address] [place] [address] CLIA Number [id number] Specimen Anatomical Collection Method Collection Time Receive d Time (Source) Location / / Volume Laterality 02/19/2017 11:33 02/19/2017 3:27 AM CDT PM CDT Arun Tate MD LAB_1 Performing Organization Address City/[facility] Phon e Number PN SOFT [address] [place] [address] ESR - Sedimentation Rate (02/19/2017 11:33 AM CDT) Analysis Performed At Patho logist Time Signature Sedimentation Rate 8 0 - 20 PN SOFT mm/hr Specimen Anatomical Collection Method Collection Time Receive d Time (Source) Location / / Volume Laterality 02/19/2017 11:33 02/19/2017 AM CDT 11:33 AM CDT Narrative PN SOFT - 02/19/2017 12:16 PM CDT Performed at [facility], [address] [place] [address] CLIA number [id number] Arun Tate MD LAB_1 Performing Organization Address City/[facility] Phon e Number PN SOFT [address] [place] [address] CRP - C Reactive Protein (02/19/2017 11:33 AM CDT) P athologist Signature CRP <0.5 0.0 - 0.5 PN SOFT mg/dL Specimen Anatomical Collection Method Collection Time Receive d Time (Source) Location / / Volume Laterality 02/19/2017 11:33 02/19/2017 AM CDT 11:33 AM CDT Narrative PN SOFT - 02/19/2017 12:40 PM CDT Performed at [facility], [facility] [address] [place] [address] CLIA number [id number] Arun Tate MD LAB_1 Performing Organization Address [facility]/ZIP Code Phon e Number PN SOFT [address] [place] [address] CBC - Complete Blood Count W/Diff (02/19/2017 [...] - 02/19/2017 11:41 AM CDT Performed at [facility], [address] [place] [address] CLIA number [id number] Arun Tate MD LAB_1 Performing Organization Address [facility]/ZIP Code Phon e Number PN SOFT [address] [place] [address] AST - Aspartate Aminotransferase (02/19/2017 11:33 AM CDT) Patholo gist Method Time Signature Aspartate 21 10 - 40 PN SOFT Aminotransferase U/L Specimen Anatomical Collection Method Collection Time Receive d Time (Source) Location / / Volume Laterality 02/19/2017 11:33 02/19/2017 AM CDT 11:33 AM CDT Narrative PN SOFT - 02/19/2017 12:40 PM CDT Performed at [facility], [facility] [address] [place] [address] CLIA number [id number] Arun Tate MD LAB_1 Performing Organization Address [facility]/ZIP Code Phon e Number PN SOFT [address] [place] [address] CREAT - Creatinine (02/19/2017 11:33 AM CDT) [...] - 02/19/2017 12:40 PM CDT Performed at [facility], [address] [place] [address] CLIA number [id number] Arun Tate MD LAB_1 Performing Organization Address [facility] Phon e Number PN SOFT [address] [place] [address] XR Hand Rt 3+ Views (02/19/2017 11:17 [...] bony destructive or erosive changes confirmed. Arun TANNER documented in this encounter Visit Diagnoses Diagnosis Multiple joint pain - Primary Pain in joint, multiple sites Primary osteoarthritis of both hands Primary osteoarthritis of right hip Primary localized osteoarthrosis, pelvic region and thigh Primary osteoarthritis of right knee Primary localized osteoarthrosis, lower leg Total knee replacement status, left Gastroesophageal reflux disease, esophag itis presence not specified Multiple joint pain Pain in joint, multiple sites Multiple joint pain Pain in joint, multiple sites documented in this encounter Care Teams Marine Specialist Relationship Specialty Start Date End Date Marta Hicks MD PCP - General Family Practice 01/03/17 documented as of this encounter
--- OUTSIDE RECORDS SUMMARY | 2022-06-14 08:09 | XMS_ITS | Encounter Summary ---
:1955 [facility] Address [address], [place] [address] Care Team Providers Name Role Phone Marta Hicks MD Primary Care Provider Unavailable Reason for Visit Procedure/Equipment (Routine) - Incomplete Specialty Diagnoses / Procedures Referred By Contact Refer red To Contact Diagnoses HLA B27 (HLA B27 positive) Psoriasis Bilateral hand pain Carol Herrmann, PA-C Procedures MR Hand Rt W/WO IV Cont [address], [place] [address] Referral ID Status Reason Start Date Expiration Date Visits V isits Requested Authorized [id number] Incomplete 06/30/2019 09/28/2020 1 1 Encounter Details Date Type Department Care Team Description 07/08/2019 Ancillary Mary Esther Carol Herrmann, HLA B27 (H LA B27 positive); Procedure Radiology MRI PA-C Psoriasis; [address] [address] [place] [id number] Social History Tobacco Use Types Packs/Day Years [...] Appointment Rheumatology Arun Tate M D [address] [facility] [address] (Wo rk) documented as of this encounter Procedures Procedure Name Priority Date/Time Associated Diagnosis Comme nts MR HAND RT W/WO IV Routine 07/08/2019 2:48 PM HLA B27 (HLA B27 Results for this CONT DIRECTOR ORACLE DATABASE positive) procedure are in Psoriasis the results Bilateral hand pain section. documented in this encounter Results MR Hand Rt W/WO IV Cont (07/08/2019 2:48 PM DIRECTOR [employer]ACLE DATABASE) Anatomical Region Laterality Modality Upper Extremity, Hand, Wrist, Skeletal Right M agnetic Resonance Specimen (Source) Anatomical Collection Method Collection Time Re ceived Time Location / / Volume Laterality 07/08/2019 2:02 PM DIRECTOR [employer]ACLE DAT[employer]ASE Impressions 07/08/2019 3:02 PM DIRECTOR [employer]ACLE DAT[employer]ASE TECHNIQUE: MRI of the right hand was [...] erosive osteoarthritis. 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 Psoriasis Other psoriasis Bilateral hand pain Pain in limb documented in this encounter Administered Medications Active Administered Medications - up to 3 most recent administrations Medication Order MAR Action Action Date Dose Rate Site sodium chloride 0.9% injection 20 Given 07/08/2019 2:23 PM DIRECTOR [employer] DAT[employer]ASE 2 0 mL mL 20 mL, Intravenous, PRN, Line Patency, Starting on Alissa 07/08/19 at 1409, Until Discontinued Inactive Administered Medications - up to 3 most recent administrations Medication Order MAR Action Action Date Dose Rate Site gadobutrol (GADAVIST) 1 MMOL/ML Given 07/08/2019 2:30 PM DIRECTOR [employer]ACLE DAT[employer]ASE 10 mL injection 10 mL 10 mL, Intravenous, ONCE, On Alissa 07/08/19 at 1430, For 1 dose documented in this encounter Care Teams Septic Technician Relationship Specialty Start Date End Date Marta Hicks MD PCP - General Family Practice 01/03/17 documented as of this encounter
--- OUTSIDE RECORDS SUMMARY | 2022-06-14 08:09 | XMS_ITS | Encounter Summary ---
:1955 Author Organization [facility] Address [address], [place] [address] Care Team Providers Name Role Phone Marta Hicks MD Primary Care Provider Unavailable Encounter Details Date Type Department Care Team Description 06/30/2019 Notes/Orders [place] Rheumatol Carol Lackey, PA-C [address] [place] [address] [place] [address] [phone] (Wo parth) Social History Tobacco Use Types [...] Appointment Rheumatology Arun Tate M D [address] [facility] [address] [address] (Wo rk) documented as of this encounter Visit Diagnoses Not on filedocumented in this encounter Care Teams Safety Director Relationship Specialty Start Date End Date Marta Hicks MD PCP - General Family Practice 01/03/17 documented as of this encounter
[2022-06-14 08:16] LABS: SARS PCR* Negative SARS-CoV-2 (Negative)
== END 2022-06-14 09:35 | disposition home or self-care (01) ==
PROVIDERS: Emergency Provider Family Medicine; PCP Physician Assistant Medical
DX: J18.9 Pneumonia, unspecified organism (principal); J44.9 Chronic obstructive pulmonary disease, unspecified; F17.210 Nicotine dependence, cigarettes, uncomplicated
CPT/HCPCS: 71046; 87502; 87634; 87635; 94640; 94664; 99283; 99284

== ENCOUNTER 2025-06-21 20:06 | Emergency (ER) | payer MEDICARE, SELFPAY ==
[2025-06-21 20:17] VITALS: BP 173/76; PULSE 78; RESP 16; TEMP 36.1; O2SAT 96; BMI 36.6
--- NOTE | 2025-06-21 20:20 | ED.GENADULT ---
HPI - General Adult General Time Seen by Provider: 20:20 Date Seen: 06/21/25 Chief complaint: Back Injury/Pain Stated complaint: fell and hurt left side of face Time Seen by Provider: 06/21/25 20:20 Source: patient and family Mode of arrival: ambulatory History of Present Illness HPI narrative: Marie is a 70 yo female who has a past medical history of CVA, COPD, hypertension, hyperlipidemia, GERD who presents to the emergency department for evaluation fall. Patient presents with daughter granddaughter. Patient reports that she was outside with her with deletion wrapped around her ankle. Patient states that she fell down her vision is somewhat your and landed on the left side of her face to the concrete. Patient states other than hitting her face she did not hit his head, did not lose consciousness. Patient complains of some discomfort to the left side of her face (cheek), reports normal bite. Patient also complains of left elbow, left knee, and right hip pain. Patient states that her hip fracture hurts the worst and she has a history of an artificial left knee and right hip. No medications prior to arrival. Patient denies any chest pain, shortness of breath, neck pain, abdominal pain, weakness, tingling, numbness. No other complaints. patient is not on chronic anticoagulation. Related Data Home Medications ?Medication ?Instructions ?Recorded ?Confirmed albuterol sulfate 90 mcg/actuation inhalation 06/14/22 aerosol inhaler celecoxib 100 mg capsule mg 06/14/22 fluticasone propionate 50 intranasal 06/14/22 mcg/actuation nasal spray,suspension omeprazole 40 mg capsule,delayed mg 06/14/22 release simvastatin 20 mg tablet mg 06/14/22 Previous Rx's ?Medication ?Instructions ?Recorded doxycycline monohydrate 100 mg 100 mg PO BID #20 caps 06/14/22 capsule prednisone 20 mg tablet 20 mg PO BID #14 tabs 06/14/22 oxycodone 5 mg capsule 5 mg PO Q6H PRN pain #7 caps 06/21/25 Allergies Allergy/AdvReac Type Severity Reaction Status Date / Time methotrexate Allergy Severe Anaphylaxis Verified 06/21/25 20:21 Review of Systems Narrative: Past medical history, past surgical history, medications, allergies, family history, and social history were reviewed with the patient. No additional pertinent items. A medically appropriate review of systems was performed with pertinent positives and negatives noted in HPI, all other systems negative. [facility] Medical History (Updated 06/21/25 @ 22:22 by Rupa Mast MD) GERD (gastroesophageal reflux disease) ?K21.9 - Gastro-esophageal reflux disease without esophagitis (ICD-10) History of CVA (cerebrovascular accident) ?Z86.73 - Personal history of transient ischemic attack (TIA), and cerebral infarction without residual deficits (ICD-10) COPD (chronic obstructive pulmonary disease) ?J44.9 - Chronic obstructive pulmonary disease, unspecified (ICD-10) Tobacco abuse ?Z72.0 - Tobacco use (ICD-10) Osteoarthritis ?M19.90 - Unspecified osteoarthritis, unspecified site (ICD-10) Rheumatoid arthritis ?M06.9 - Rheumatoid arthritis, unspecified (ICD-10) Psoriatic arthritis ?L40.50 - Arthropathic psoriasis, unspecified (ICD-10) Hyperlipidemia ?E78.5 - Hyperlipidemia, unspecified (ICD-10) Hypertension ?I10 - Essential (primary) hypertension (ICD-10) Exam Narrative: Exam Narrative: General: Afebrile, in distress 2/2 to pain HEENT: Normocephalic, atraumatic, no bony TTP, PEERL, EOMI, conjunctiva normal. Left cheek with mild erythema, no significant TTP, no abrasions, no naveen tenderness, no step offs, MMM Neck: non-tender, supple, no midline TTP, no pain with lateral rotation/extension/flexion Cardio: regular rate. regular rhythm Resp: Normal work of breathing, no respiratory distress, lungs clear bilaterally, no wheezing, rhonchi, rales Chest/Back: no visual signs of trauma, no midline tenderness, no CVA tenderness Abdomen: soft, non distension, no tenderness, no peritoneal signs Neuro: alert and fully oriented. CN II-XII grossly intact. Grossly normal strength and sensation in all extremities. MSK: +left elbow with superficial abrasion, full passive ROM, distally NIV, left knee with TTP, no obvious deformity, no abrasions, full ROM, +TTP right hip and decrease ROM at right hip 2/2 to pain, distally NVI with dp and pt pulse present b/l, compartments soft. Integumentary/Skin: no rash visualized, normal color Psych: normal affect, normal behavior Const: Vital Signs, click to edit/add: Vital Signs - 24 hr 06/21/25 20:17 Temperature 97.0 F L Pulse Rate [Right Pulse Oximeter] 78 Respiratory Rate 16 Blood Pressure [Ri ght Upper Arm] 173/76 H Pulse Oximetry 96 Oxygen Delivery Me thod Room Air Course Vital Signs Vital signs: Initial Vital Signs Temperature 97.0 F L 06/21/25 20:17 Temperature Source Temporal Artery Scan 06/21/25 20:17 Pulse Rate 78 06/21/25 20:17 Pulse Rhythm Regular 06/21/25 20:17 Pulse Strength 3+ Normal 06/21/25 20:17 Respiratory Rate 16 06/21/25 20:17 Blood Pressure 173/76 H 06/21/25 20:17 Blood Pressure Mean 108 H 06/21/25 20:17 Blood Pressure Position Sitting 06/21/25 20:17 Pulse Oximetry 96 06/21/25 20:17 Oxygen Delivery Method Room Air 06/21/25 20:17 Vital Signs Temperature 97.0 F L 06/21/25 20:17 Pulse Rate 78 06/21/25 20:17 Respiratory Rate 16 06/21/25 20:17 Blood Pressure 173/76 H 06/21/25 20:17 Pulse Oximetry 96 06/21/25 20:17 Oxygen Delivery Method Room Air 06/21/25 20:17 Temperature 97.0 F L 06/21/25 20:17 Pulse Rate 78 06/21/25 20:17 Respiratory Rate 16 06/21/25 20:17 Blood Pressure 173/76 H 06/21/25 20:17 Pulse Oximetry 96 06/21/25 20:17 Oxygen Delivery Method Room Air 06/21/25 20:17 Medications Administered Medications: Discontinued Medications Generic Name Dose Route Start Last Admin Trade Name Freq PRN Reason Stop Dose Admin Oxycodone HCl 5 mg 06/21/25 20:41 06/21/25 20:47 Oxycodone 5 Mg Tablet PO 06/21/25 20:42 5 mg ONCE ONE Administration Medical Decision Making [facility] Narrative Medical decision making narrative: Marie is a 70 yo female who has a past medical history of CVA, COPD, hypertension, hyperlipidemia, GERD who presents to the emergency department for evaluation fall. Upon arrival patient is nontoxic appearing, afebrile, in distress secondary to pain. Patient is slightly hypertensive upon arrival 173/76, heart rate 78, oxygen 96% on room air. Patient is not on chronic anticoagulation, reports hitting the left side of her face but not hit her head. No altered mental status, no vision changes, nausea, no obvious head injury. Considered however this time will defer CT of the head at this time. Majority of patient's symptoms are close to her right hip. Patient was treated with oxycodone for pain and x-rays obtained. I personally reviewed and interpreted x-rays of the left elbow, left knee, and right hip. Left knee arthroplasty with no evidence of acute fracture, dislocation, mild soft tissue swelling, left elbow with no acute fracture, dislocation, or significant joint effusion. Right hip with no acute fracture or dislocation. On re-evaluation patient reports improvement in her symptoms after oxycodone. Patient is able to ambulate. Patient feels comfortable with discharge home with continued supportive care, ice, weight-bearing as tolerated, Tylenol, oxycodone as needed for severe pain. Encouraged close outpatient follow-up and return precautions discussed. Patient understands and agrees with the plan. Medical Records Medical records reviewed: Yes I reviewed the patient's medical records Imaging Data xr hip: Attestation: I have reviewed the pertinent imaging results. Radiologist's impression: INDICATION: Trauma. TECHNIQUE: Pelvis and right hip 3 views. COMPARISON: None. FINDINGS: Right total hip arthroplasty. Hardware is intact and appropriately seated. Bone alignment is normal. No sign of acute fracture. Mild left hip degenerative changes. Lower lumbar spondylosis. Soft tissues are unremarkable. IMPRESSION: Right hip arthroplasty without evidence of hardware complications. xr knee: Attestation: I have reviewed the pertinent imaging results. Radiologist's impression: INDICATION: Trauma. TECHNIQUE: Left knee 3 views. COMPARISON: None. FINDINGS: Left total knee arthroplasty and patellar resurfacing. Hardware is intact and appropriately seated. Bone alignment is normal. No sign of acute fracture. Trace joint effusion. Mild soft tissue swelling. IMPRESSION: Left knee arthroplasty without evidence of hardware complications. xr elbow: Attestation: I have reviewed the pertinent imaging results. Radiologist's impression: INDICATION: Trauma. TECHNIQUE: Left elbow 3 views. COMPARISON: None. FINDINGS: No acute fractures or malalignment. No significant joint effusion. Mild degenerative changes of the elbow. Mild soft tissue swelling. IMPRESSION: No acute osseous abnormality. Discharge Plan Discharge Clinical Impression: Acute pain of right hip, Fall, Abrasion of elbow, left, Acute pain of left knee Patient Disposition: Home, Self-Care Condition: Stable Additional Instructions: Please follow-up with your primary care provider in the next 3-5 days for further evaluation and follow-up. Please call to schedule appointment. Please rest, bear weight as tolerated. Please continue old medications. Please take oxycodone 1 tablet every 4-6 hours as needed for severe pain. Please return to the emergency department if any worsening symptoms. It was a pleasure taking care of you today we hope you feel better soon. Prescriptions: New oxycodone 5 mg capsule 5 mg PO Q6H PRN (Reason: pain) Qty: 7 0RF No Action omeprazole 40 mg capsule,delayed release(DR/EC) simvastatin 20 mg tablet albuterol sulfate 90 mcg/actuation HFA aerosol inhaler INHALATION celecoxib 100 mg capsule fluticasone propionate 50 mcg/actuation spray,suspension INTRANASAL doxycycline monohydrate 100 mg capsule 100 mg PO BID Qty: 20 0RF prednisone 20 mg tablet 20 mg PO BID Qty: 14 0RF Follow Up/Referrals: Rashaad Talavera PA-C [Primary Care Provider, Family Practice] Stand Alone Forms: [employer] Info Instructions
--- NOTE | 2025-06-21 20:41 | CRLHL7_ITS ---
For Patients: As a result of the Century Cures Act, medical imaging exams and procedure reports are released immediately into your electronic medical record. You may view this report before your referring provider. If you have questions, please contact your health care provider. INDICATION: Trauma. TECHNIQUE: Left elbow 3 views. COMPARISON: None. FINDINGS: No acute fractures or malalignment. No significant joint effusion. Mild degenerative changes of the elbow. Mild soft tissue swelling. IMPRESSION: No acute osseous abnormality. Dictated by Kei Nam MD @ 06/21/2025 9:31:21 PM (Electronically Signed)
--- NOTE | 2025-06-21 20:41 | CRLHL7_ITS ---
For Patients: As a result of the Cures Act, medical imaging exams and procedure reports are released immediately into your electronic medical record. You may view this report before your referring provider. If you have questions, please contact your health care provider. INDICATION: Trauma. TECHNIQUE: Pelvis and right hip 3 views. COMPARISON: None. FINDINGS: Right total hip arthroplasty. Hardware is intact and appropriately seated. Bone alignment is normal. No sign of acute fracture. Mild left hip degenerative changes. Lower lumbar spondylosis. Soft tissues are unremarkable. IMPRESSION: Right hip arthroplasty without evidence of hardware complications. Dictated by Kei Nam MD @ 06/21/2025 9:28:54 PM (Electronically Signed)
--- NOTE | 2025-06-21 20:41 | CRLHL7_ITS ---
For Patients: As a result of the Cures Act, medical imaging exams and procedure reports are released immediately into your electronic medical record. You may view this report before your referring provider. If you have questions, please contact your health care provider. INDICATION: Trauma. TECHNIQUE: Left knee 3 views. COMPARISON: None. FINDINGS: Left total knee arthroplasty and patellar resurfacing. Hardware is intact and appropriately seated. Bone alignment is normal. No sign of acute fracture. Trace joint effusion. Mild soft tissue swelling. IMPRESSION: Left knee arthroplasty without evidence of hardware complications. Dictated by Kei Nam MD @ 06/21/2025 9:30:12 PM (Electronically Signed)
== END 2025-06-21 22:38 | disposition home or self-care (01) ==
PROVIDERS: Emergency Provider Emergency Medicine; PCP Physician Assistant Medical
DX: M25.551 Pain in right hip (principal); M25.562 Pain in left knee; S50.312A Abrasion of left elbow, initial encounter; W18.30XA Fall on same level, unspecified, initial encounter
CPT/HCPCS: 73080; 73502; 73562; 99284; 99285; A9270